=== PATIENT | female | born 1930 | race Caucasian/White ===

== ENCOUNTER 2016-08-19 15:21 | Inpatient (IN) | payer MEDICARE, BC ==
[2016-08-19] MEDS ORDERED: KETOROLAC 30 MG/ML 1 ML VIAL IVP STA (16:12)
[2016-08-19] MEDS ORDERED: LORazepam 2 MG/ML SYRINGE IV STA (16:12)
[2016-08-19] MEDS ORDERED: ASPIRIN 325 MG TAB PO STA (16:12)
[2016-08-19] MEDS ORDERED: SODIUM CHLORIDE 0.9% 1,000 ML IV ONE ×2 (16:12→18:33)
[2016-08-19 17:09] LABS: Calcium 9.9 mg/dL (8.4-10.2); Potassium 6.1 mmol/L (3.5-5.1); Total Bilirubin 0.4 mg/dL (0.2-1.3); Total Protein 7.5 g/dL (6.3-8.2)
--- NOTE | 2016-08-19 17:22 | CT ---
EXAMINATION TYPE: CT abdomen pelvis wo con DATE OF EXAM: 08/19/2016 5:14 PM COMPARISON: NONE HISTORY: PTs family states of vomiting and abdominal pain today. CT DLP: 1180.4 mGycm Automated exposure control for dose reduction was used. TECHNIQUE: Helical acquisition of images was performed from the lung bases through the pelvis. FINDINGS: There is mild linear density at the lung bases consistent with subsegmental atelectasis. There is no pleural effusion. Heart size is normal. Liver and spleen appear normal. Bile ducts are not dilated. T here is a small hiatal hernia. There is no sign of a pancreatic mass. There is no adrenal mass. Kidne ys have normal size and contour. There is no hydronephrosis. There is a 3 cm cyst on the lower pole r ight kidney. There is no retroperitoneal adenopathy. Abdominal aorta is atheromatous. There is mild t hickening of the second and third part of the duodenum. There are numerous diverticula in the sigmoid colon. There is no sign of diverticulitis. There is no free air. Appendix appears normal. Bladder distends smoothly. There is an air bubble in the urinary b ladder that could relate to catheterization. IMPRESSION: SMALL HIATAL HERNIA. MILD ATELECTASIS AT THE LUNG BASES. THERE IS MILD THICKENING OF THE WALL OF THE DUODENUM THAT COULD RELATE TO DUODENITIS AND GASTRITIS THAT APPEARS NEW COMPARED TO LAST EXAM. COLONIC DIVERTICULOSIS WITHOUT SIGN OF DIVERTICULITIS.
--- NOTE | 2016-08-19 17:24 | XR ---
EXAMINATION TYPE: XR chest 2V DATE OF EXAM: 08/19/2016 5:19 PM COMPARISON: 06/23/2016 HISTORY: Abdominal pain TECHNIQUE: Frontal and lateral views of the chest are obtained. FINDINGS: There is no heart failure nor confluent pneumonic infiltrate. There are no hilar masses. T horacic aorta is atherosclerotic and tortuous. There is osteopenia with anterior wedging of a few tho racic vertebra. IMPRESSION: No heart failure. Atherosclerotic vascular disease. There is clearing of the mild pulmon gopal congestion compared to last exam. Osteoporosis with multiple thoracic mild compression fractures. Old left humeral neck fracture.
[2016-08-19 18:04] LABS: Basophils % (A) 0 %; CH 23.8; CHCM 30.3; Eosinophils % (A) 0 %; HCT 28.8 % (34.0-46.0); HDW 2.79; Hypochromasia Marked; Luc # (Auto) 0.25; Luc % (Auto) 2; Lymphocytes # (A) 2.2 k/uL (1.0-4.8); Lymphocytes % (A) 17 %; MCH 23.9 pg (25.0-35.0); MCHC 30.4 g/dL (31.0-37.0); MCV 78.7 fL (80.0-100.0); Mean Platelet Volume 7.5; Monocytes # (A) 0.5 k/uL (0-1.0); Monocytes % (A) 4 %; Neutrophils % (A) 77 %; RBC 3.67 m/uL (3.80-5.40); RDW 14.7 % (11.5-15.5); WBC 13.1 k/uL (3.8-10.6); WBC (Perox) 13.61
[2016-08-19 18:11] LABS: HGB 8.8 gm/dL (11.4-16.0)
[2016-08-19 18:16] LABS: Appearance,Urine Clear (Clear); Bilirubin,Urine Negative (Negative); Glucose,Urine (UA) Negative (Negative); Ketones,Urine Negative (Negative); Leukocyte Esterase,Urine Negative (Negative); Mucus,Urine Rare /hpf; Nitrite,Urine Negative (Negative); Particle Count 1352; Protein,Urine 1+ (Negative); Specific Gravity,Urine 1.009 (1.001-1.035); Squamous Epithelial Cell,Urine 1 /hpf (0-4); UA Billing (MACRO vs. MICRO) MICRO; Urobilinogen,Urine <2.0 mg/dL (<2.0)
[2016-08-19] MEDS ORDERED: PANTOPRAZOLE 40 MG/10 ML VIAL IVP ONE (18:33)
[2016-08-19] MEDS ORDERED: LEVOFLOXACIN 500MG-D5W PMX 500 MG in DEXTROSE/WATER 1 100ML.BAG IVPB STA (18:40)
[2016-08-19] MEDS ORDERED: metroNIDAZOLE-NS PMX 500 MG in SALINE 1 100ML.BAG IVPB STA (18:40)
[2016-08-19] MEDS ORDERED: ACETAMINOPHEN TAB 325 MG TAB PO PRN (20:00)
[2016-08-19] MEDS ORDERED: LORazepam 2 MG/ML SYRINGE IV PRN (20:00)
[2016-08-19] MEDS ORDERED: NALOXONE 0.4 MG/ML 1 ML VIAL IV PRN (20:00)
[2016-08-19] MEDS ORDERED: KETOROLAC 30 MG/ML 1 ML VIAL IVP PRN (20:00)
[2016-08-19] MEDS ORDERED: HYDROcodone/APAP 5-325MG 1 EACH TAB PO PRN (20:04)
[2016-08-19] MEDS ORDERED: SODIUM POLYSTYRENE SULFONATE 15 GM/60 ML BOTTLE PO ONE (20:05)
[2016-08-19] MEDS ORDERED: SPIRONOLACTONE 25 MG TAB PO SCH (20:15)
[2016-08-19] MEDS: QUEtiapine 25 MG TAB PO SCH (23:11)
[2016-08-19] MEDS: traZODone HCL 50 MG TAB PO SCH (23:12)
--- NOTE | 2016-08-20 01:54 | ED ---
General Adult HPI - General Chief complaint: Abdominal Pain Stated complaint: Abd Pain Time Seen by Provider: 08/19/16 15:40 Source: family Mode of arrival: wheelchair Limitations: no limitations - History of Present Illness Initial comments: 85-year-old female presenting with family for evaluation of abdominal pain that is been present since early this afternoon. They state that the pain has associated nausea and vomiting of which she has had 2 episodes. The patient has a significant past medical history of dementia and is a very poor historian. Family states that the abdominal pain is generalized and she is not able to indicate if there is a focal spot worse than the rest. Palpation seems to make her symptoms worse they state there are no identifiable alleviating factors . Although she was recently treated for urinary tract infection she denies any dysuria. She further denies any constipation/diarrhea, shortness of breath, chest pain, fevers, chills. She has taken nothing to improve her pain. - Related Data Home Medications Medication Instructions Recorded Confirmed ALPRAZolam [Xanax] 0.5 mg PO HS 07/04/15 08/19/16 Citalopram Hydrobromide [CeleXA] 20 mg PO DAILY 11/04/15 08/19/16 ALPRAZolam [Xanax] 0.25 mg PO DAILY 06/22/16 08/19/16 HYDROcodone/APAP 5-325MG [[place] 1 tab PO TID PRN 06/22/16 08/19/16 5-325] Lisinopril 40 mg PO DAILY 06/22/16 08/19/16 Carvedilol [Coreg] 3.125 mg PO DAILY 07/13/16 08/19/16 Diclofenac Potassium [Cataflam] 50 mg PO BID 07/13/16 08/19/16 Lactulose 10 gm PO DAILY 07/13/16 08/19/16 Cholecalciferol [Vitamin D3] 2,000 unit PO DAILY 08/19/16 08/19/16 Spironolactone [Aldactone] 25 mg PO DIRECTED 08/19/16 08/19/16 amLODIPine [Norvasc] 2.5 mg PO DAILY 08/19/16 08/19/16 traZODone HCL 50 mg PO HS 08/19/16 08/19/16 Previous Rx's Medication Instructions Recorded QUEtiapine [SEROquel] 25 mg PO HS #0 04/22/16 Melatonin 3 mg PO HS #1 tablet 06/24/16 Allergies Allergy/AdvReac Type Severity Reaction Status Date / Time erythromycin base Allergy Rash/Hives Verified 08/19/16 16:03 hydrochlorothiazide Allergy Rapid Verified 08/19/16 16:03 Heart Rate ibandronate sodium Allergy Dyspnea Verified 08/19/16 16:03 [From [place]] Penicillins Allergy Rash/Hives Verified 08/19/16 16:03 Review of Systems ROS Statement: Those systems with pertinent positive or pertinent negative responses have been documented in the HPI. General: Patient denies fever, chills, positive nausea and vomiting. HEENT: No visual changes. No eye pain. No nasal symptoms. No dysphagia.No odynophagia. No ENT pain. Cardiac: No chest pain. No palpitations. Pulmonary; No dyspnea. No cough. GI: Positive generalized abdominal pain. No diarrhea. No constipation. No bowel habit changes. No melena. No hematochezia. : No dysuria.No hematuria. No hesitancy. No urgency. No renal lithiasis history. Musculoskeletal: No musculoskeletal pain. Orthopedic: Denies fracture history. Integumentary: Denies rash. Denies pruritis. Neurologic: Denies any lateralizing weakness. Denies numbness. Denies tingling. No seizure activity. Denies TIA or CVA. Heme/Onc: Denies anemia. Denies cancer. Denies adenopathy. ROS Other: All systems not noted in ROS Statement are negative. Past Medical History Past Medical History: Coronary Artery Disease (CAD), Dementia, Hypertension, Osteoarthritis (OA) Additional Past Medical History / Comment(s): constipation, STRESS TEST 11-04-15 ,ARTHRITIS IN HANDS, GAIT PROBLEMS/HAS HAD FALLS WHERE SHE HAS FX C1, RT SHOULDER, NOSE(NO SX DONE ON ANY OF THEM), UNABLE TO OBTAIN ANSWERS FROM PT FOR DEPRESSION RISK SCREEN BUT FAMILY STATED SHE MAY HAVE SOME MILD /D/T HER DEMENTIA. History of Any Multi-Drug Resistant Organisms: None Reported Past Surgical History: Orthopedic Surgery Additional Past Surgical History / Comment(s): rt knee Past Anesthesia/Blood Transfusion Reactions: No Reported Reaction Past Psychological History: Anxiety Smoking Status: Never smoker Past Alcohol Use History: None Reported Past Drug Use History: None Reported - Past Family History Mother Family Medical History: Congestive Heart Failure (CHF), Myocardial Infarction ( [place]) Father Family Medical History: Cancer General Exam - General Exam Comments Initial Comments: General: The patient is awake and alert, in no distress, and does not appear acutely ill. Eye: Pupils are equal, round and reactive to light, extra-ocular movements are intact; there is normal conjunctiva bilaterally. No signs of icterus. Ears, nose, mouth and throat: There are moist mucous membranes and no oral lesions. Neck: The neck is supple, there is no tenderness or JVD. Cardiovascular: There is a regular rate and rhythm. No murmur, rub or gallop is appreciated. Respiratory: Lungs are clear to auscultation, respirations are non-labored, breath sounds are equal. No wheezes, stridor, rales, or rhonchi. Gastrointestinal: Soft, non-distended, mildly tender abdomen to palpation without masses or organomegaly noted. There is no rebound or guarding present. No CVA tenderness. Bowel sounds are unremarkable. Back: There is no tenderness to palpation in the midline. There is no obvious deformity. No rashes noted. Musculoskeletal: Normal ROM, no tenderness, There is no pedal edema. There is no calf tenderness or swelling. Sensation intact. Pulses equal bilaterally 2+. Neurological: CN II-XII intact, There are no obvious motor or sensory deficits. Coordination appears grossly intact. Speech is normal. Skin: Skin is warm and dry and no rashes or lesions are noted. Psychiatric: Cooperative, appropriate mood & affect, normal judgment. Poor historian to her current HPI. Limitations: no limitations Course Vital Signs 08/19/16 08/19/16 08/19/16 15:33 18:37 19:31 Temperature 98.7 F 99.1 F Pulse Rate 83 83 79 Respiratory 16 16 18 Rate Blood Pressure 165/82 144/85 146/78 O2 Sat by Pulse 98 98 95 Oximetry 08/19/16 21:45 Temperature 97.0 F L Pulse Rate 78 Respiratory 18 Rate Blood Pressure 142/78 O2 Sat by Pulse 96 Oximetry EKG Findings - EKG Comments: EKG Findings:: EKG shows sinus rhythm with PACs and a left bundle branch block unchanged from previous EKGs. Medical Decision Making - Medical Decision Making 85-year-old female presenting for evaluation of generalized abdominal pain that started early this afternoon with associated nausea and vomiting 2. She was recently treated for urinary tract infection and denies current dysuria. On physical examination she has a soft non-peritoneal abdomen without guarding but it is tender to palpation. Otherwise there are no other significant abnormalities on physical exam. Due to the patient being a poor historian and having significant dementia we'll obtain CT abdomen as well as labs, urinalysis, and provide pain control. The patient has benzos for agitation at home and we'll provide her with a small dose here in the ED. Labs revealed a mild leukocytosis but a 2 g drop in her hemoglobin from previous visits. Labs further showed kidney function elevated but consistent with previous values. There is also hyperkalemia which will be treated with Kayexalate. CT abdomen and pelvis showed inflammatory changes around the duodenum and gastric fundus and given a 2 g drop in her hemoglobin may indicate a GI bleed. Patient continued on IV fluids, type and screen obtained, and Protonix loading dose provided. Discussion with family concerning the results and they agreed with plan to admit the patient.Dr. Chiu accepted the admission with request for consult with GI. Admission order placed and bed request submitted. - Lab Data Result diagrams: 08/19/16 16:30 08/19/16 16:38 Lab Results 08/19/16 08/19/16 08/19/16 Range/Units 16:30 16:38 16:38 WBC 13.1 H (3.8-10.6) k/uL RBC 3.67 L (3.80-5.40) m/uL Hgb 8.8 L D (11.4-16.0) gm/dL Hct 28.8 L (34.0-46.0) % MCV 78.7 L (80.0-100.0) fL MCH 23.9 L (25.0-35.0) pg MCHC 30.4 L (31.0-37.0) g/dL RDW 14.7 (11.5-15.5) % Plt Count 670 H (150-450) k/uL Neutrophils % 77 % Lymphocytes % 17 % Monocytes % 4 % Eosinophils % 0 % Basophils % 0 % Neutrophils # 10.0 H (1.3-7.7) k/uL Lymphocytes # 2.2 (1.0-4.8) k/uL Monocytes # 0.5 (0-1.0) k/uL Eosinophils # 0.0 (0-0.7) k/uL Basophils # 0.0 (0-0.2) k/uL Hypochromasia Marked Sodium 137 (137-145) mmol/L Potassium 6.1 H (3.5-5.1) mmol/L Chloride 100 (98-107) mmol/L Carbon Dioxide 24 (22-30) mmol/L Anion Gap 13 mmol/L BUN 25 H (7-17) mg/dL Creatinine 1.53 H (0.52-1.04) mg/dL Est GFR (MDRD) Af Amer 39 (>60 ml/min/1.73 sqM) Est GFR (MDRD) Non-Af 32 (>60 ml/min/1.73 sqM) Glucose 102 H (74-99) mg/dL Plasma Lactic Acid Lico (0.7-2.0) mmol/L Calcium 9.9 (8.4-10.2) mg/dL Total Bilirubin 0.4 (0.2-1.3) mg/dL AST 19 (14-36) U/L ALT 35 (9-52) U/L Alkaline Phosphatase 136 H (38-126) U/L Troponin I <0.012 (0.000-0.034) ng/mL Total Protein 7.5 (6.3-8.2) g/dL Albumin 3.7 (3.5-5.0) g/dL Lipase 287 (23-300) U/L Urine Color Urine Appearance (Clear) Urine pH (5.0-8.0) Ur Specific [place] (1.001-1.035) Urine Protein (Negative) Urine Glucose (UA) (Negative) Urine Ketones (Negative) Urine Blood (Negative) Urine Nitrate (Negative) Urine Bilirubin (Negative) Urine Urobilinogen (<2.0) mg/dL Ur Leukocyte Esterase (Negative) Ur Squamous Epith Cells (0-4) /hpf Urine Mucus (None) /hpf Stool Occult Blood (Negative) Blood Type Blood Type Recheck Antibody Screen Spec Expiration Date 08/19/16 08/19/16 08/19/16 Range/Units 16:38 17:40 18:50 WBC (3.8-10.6) k/uL RBC (3.80-5.40) m/uL Hgb (11.4-16.0) gm/dL Hct (34.0-46.0) % MCV (80.0-100.0) fL MCH (25.0-35.0) pg MCHC (31.0-37.0) g/dL RDW (11.5-15.5) % Plt Count (150-450) k/uL Neutrophils % % Lymphocytes % % Monocytes % % Eosinophils % % Basophils % % Neutrophils # (1.3-7.7) k/uL Lymphocytes # (1.0-4.8) k/uL Monocytes # (0-1.0) k/uL Eosinophils # (0-0.7) k/uL Basophils # (0-0.2) k/uL Hypochromasia Sodium (137-145) mmol/L Potassium (3.5-5.1) mmol/L Chloride (98-107) mmol/L Carbon Dioxide (22-30) mmol/L Anion Gap mmol/L BUN (7-17) mg/dL Creatinine (0.52-1.04) mg/dL Est GFR (MDRD) Af Amer (>60 ml/min/1.73 sqM) Est GFR (MDRD) Non-Af (>60 ml/min/1.73 sqM) Glucose (74-99) mg/dL Plasma Lactic Acid Lico (0.7-2.0) mmol/L Calcium (8.4-10.2) mg/dL Total Bilirubin (0.2-1.3) mg/dL AST (14-36) U/L ALT (9-52) U/L Alkaline Phosphatase (38-126) U/L Troponin I (0.000-0.034) ng/mL Total Protein (6.3-8.2) g/dL Albumin (3.5-5.0) g/dL Lipase (23-300) U/L Urine Color Light Yellow Urine Appearance Clear (Clear) Urine pH 8.0 (5.0-8.0) Ur Specific [place] 1.009 (1.001-1.035) Urine Protein 1+ H (Negative) Urine Glucose (UA) Negative (Negative) Urine Ketones Negative (Negative) Urine Blood Negative (Negative) Urine Nitrate Negative (Negative) Urine Bilirubin Negative (Negative) Urine Urobilinogen <2.0 (<2.0) mg/dL Ur Leukocyte Esterase Negative (Negative) Ur Squamous Epith Cells 1 (0-4) /hpf Urine Mucus Rare H (None) /hpf Stool Occult Blood Negative (Negative) Blood Type O Positive Blood Type Recheck No Antibody Screen NEGATIVE Spec Expiration Date 08/22/2016233708/19/16 Range/Units 19:07 WBC (3.8-10.6) k/uL RBC (3.80-5.40) m/uL Hgb (11.4-16.0) gm/dL Hct (34.0-46.0) % MCV (80.0-100.0) fL MCH (25.0-35.0) pg MCHC (31.0-37.0) g/dL RDW (11.5-15.5) % Plt Count (150-450) k/uL Neutrophils % % Lymphocytes % % Monocytes % % Eosinophils % % Basophils % % Neutrophils # (1.3-7.7) k/uL Lymphocytes # (1.0-4.8) k/uL Monocytes # (0-1.0) k/uL Eosinophils # (0-0.7) k/uL Basophils # (0-0.2) k/uL Hypochromasia Sodium (137-145) mmol/L Potassium (3.5-5.1) mmol/L Chloride (98-107) mmol/L Carbon Dioxide (22-30) mmol/L Anion Gap mmol/L BUN (7-17) mg/dL Creatinine (0.52-1.04) mg/dL Est GFR (MDRD) Af Amer (>60 ml/min/1.73 sqM) Est GFR (MDRD) Non-Af (>60 ml/min/1.73 sqM) Glucose (74-99) mg/dL Plasma Lactic Acid Lico 0.5 L (0.7-2.0) mmol/L Calcium (8.4-10.2) mg/dL Total Bilirubin (0.2-1.3) mg/dL AST (14-36) U/L ALT (9-52) U/L Alkaline Phosphatase (38-126) U/L Troponin I (0.000-0.034) ng/mL Total Protein (6.3-8.2) g/dL Albumin (3.5-5.0) g/dL Lipase (23-300) U/L Urine Color Urine Appearance (Clear) Urine pH (5.0-8.0) Ur Specific [place] (1.001-1.035) Urine Protein (Negative) Urine Glucose (UA) (Negative) Urine Ketones (Negative) Urine Blood (Negative) Urine Nitrate (Negative) Urine Bilirubin (Negative) Urine Urobilinogen (<2.0) mg/dL Ur Leukocyte Esterase (Negative) Ur Squamous Epith Cells (0-4) /hpf Urine Mucus (None) /hpf Stool Occult Blood (Negative) Blood Type Blood Type Recheck Antibody Screen Spec Expiration Date Disposition Clinical Impression: Anemia, Abdominal pain, Hyperkalemia Disposition: ADMITTED IP TO [facility] Decision to Admit Reason: Admit from EC Decision Date: 08/20/16 Decision Time: 01:57
[2016-08-20] MEDS: SODIUM CHLORIDE 0.9% 1,000 ML IV SCH ×3 (05:16→22:06)
[2016-08-20 07:19] LABS: Basophils % (A) 0 %; CH 23.7; CHCM 29.7; Eosinophils # (A) 0.1 k/uL (0-0.7); Eosinophils % (A) 1 %; HCT 27.9 % (34.0-46.0); HDW 2.74; HGB 8.4 gm/dL (11.4-16.0); Hypochromasia Marked; Luc # (Auto) 0.26; Luc % (Auto) 2; Lymphocytes # (A) 2.3 k/uL (1.0-4.8); Lymphocytes % (A) 20 %; Monocytes # (A) 0.6 k/uL (0-1.0); Monocytes % (A) 5 %; Neutrophils # (A) 8.1 k/uL (1.3-7.7); Neutrophils % (A) 71 %; RBC 3.49 m/uL (3.80-5.40); RDW 14.7 % (11.5-15.5); WBC 11.3 k/uL (3.8-10.6); WBC (Perox) 11.97
[2016-08-20 08:06] LABS: Calcium 9.6 mg/dL (8.4-10.2); Magnesium 1.6 mg/dL (1.6-2.3); Phosphorous 3.8 mg/dL (2.5-4.5); Potassium 5.6 mmol/L (3.5-5.1); Total Bilirubin 0.6 mg/dL (0.2-1.3)
[2016-08-20] MEDS ORDERED: SPIRONOLACTONE 25 MG TAB PO SCH (09:00)
[2016-08-20] MEDS: ONDANSETRON 4 MG/2 ML VIAL IVP PRN (10:14)
[2016-08-20] MEDS: amLODIPine 5 MG TAB PO SCH (14:09)
[2016-08-20] MEDS: CITALOPRAM HYDROBROMIDE 20 MG TAB PO SCH (14:09)
[2016-08-20] MEDS: LISINOPRIL 20 MG TAB PO SCH (14:09)
[2016-08-20] MEDS: CARVEDILOL 3.125 MG TAB PO SCH (14:09)
[2016-08-20] MEDS: LACTULOSE 20 GM/30 ML CUP PO SCH (14:32)
--- NOTE | 2016-08-20 16:02 | HP ---
DATE OF ADMISSION: Chief complaint is abdominal pain. HISTORY OF PRESENT ILLNESS: Ms. Saleh is an 85-year-old female with known history of dementia, hypertension, and history of recent falls with C1 fracture as well as shoulder fracture. Was brought to the hospital with complaints of abdominal pain that has been present since yesterday. Pain is associated with nausea and vomiting which she had 2 episodes. Abdominal pain is generalized and patient also had history of constipation, most likely secondary to narcotic pain medications, which she has been taking for left shoulder pain. Otherwise, patient denied any complaints of chest pain. No short of breath. No fever. No chills. No recent illnesses or sick contacts at home. No recent travel. Patient had a CT of the abdomen and pelvis done, showed a small hiatal hernia and mild atelectasis in the lung bases along with mild thickening of the wall of the duodenum related to duodenitis and gastritis. Patient also having colonic diverticulosis without signs of diverticulitis. Patient has also found to have hemoglobin of 8.8 and hyperkalemia with potassium low at 6.1 and dehydration with elevated BUN and creatinine level. The patient has been taking spironolactone for hypertension. Currently, patient is not tolerating p.o. medications and p.o. diet. Feeling nauseated, otherwise. REVIEW OF SYSTEMS: CONSTITUTIONAL: No fever. No chills. No weakness or malaise. RESPIRATORY: No cough or sputum production. CARDIOVASCULAR: No chest pain or short of breath. No leg swelling. ABDOMEN: Patient does have nausea, vomiting, abdominal pain and constipation. No diarrhea. GENITOURINARY: No dysuria, hematuria. ENDOCRINE: Negative. PSYCHIATRIC: Negative. SKIN: Negative. MUSCULOSKELETAL: Negative. All other 14-point review of systems negative except as above. Past medical history includes dementia, hypertension, osteoarthritis, chronic constipation, status post fall and a C1 and right shoulder fracture, not a surgical candidate. PAST SURGICAL HISTORY: Orthopedic surgery, right knee surgery. PSYCHOSOCIAL HISTORY: Anxiety. SOCIAL HISTORY: Patient never a smoker. No alcohol. Denied any drugs or IVDU. FAMILY HISTORY: Mother had CHF and [place]. Father had cancer. Allergies include ERYTHROMYCIN BASE, HYDROCHLOROTHIAZIDE, IBANDRONATE and PENICILLINS. HOME MEDICATIONS: 1. Xanax. 2. Celexa. 3. [place]. 4. Lisinopril. 5. Coreg. 6. Diclofenac. 7. Lactulose. 8. Vitamin D3. 9. Spironolactone. 10. Aldactone. 11. Norvasc. 12. Trazodone. 13. Seroquel. 14. Melatonin. PHYSICAL EXAMINATION: An 85-year-old female, lying in bed. Awake, alert, oriented x1 to 2. Patient does have underlying dementia. VITALS: Blood pressure is 170/95, pulse is 98, respiratory rate is 16, temperature afebrile, pulse ox 97% on room air. HEENT: Atraumatic, normocephalic. Neck is supple. No JVD. CVS EXAM: S1, S2 heard. No murmurs, no gallop. LUNGS: Bilateral air entry is present. No wheezing. ABDOMEN: Soft, nontender. Bowel sounds are present, sluggish. WREATH MACHINE TENDER: Awake, alert, oriented x1 to 2. Patient has dementia, able to move all extremities. EXTREMITIES: No edema. Pulses palpable bilaterally, no clubbing or cyanosis. PSYCHIATRIC: Cooperative. LABORATORY DATA: WBC 13.1, hemoglobin 8.8, platelets 670. Sodium 139, potassium 6.1, BUN 25, creatinine 1.51, alk phos 136, ( ) negative. UA is negative. CT of the abdomen and pelvis showed a small hiatal hernia and duodenitis and gastritis and diverticulosis, no diverticulitis. Chest x-ray, no heart failure or intravascular disease. There is clearing of mild pulmonary congestion compared to the last exam. Osteoporosis with multiple thoracic mild compression fractures, old left humeral neck fracture. EKG showed sinus rhythm and left bundle branch block. IMPRESSION: 1. Nausea, vomiting, abdominal pain, secondary to duodenitis and gastritis. No evidence of diverticulitis as per CT of the abdomen and pelvis. 2. NSAID use in the form of diclofenac sodium at home. 3. Chronic constipation. 4. Recent fall with C1 neck fracture and left humeral neck fracture. Conservative management as per Ortho. 5. Hypertension. 6. Degenerative joint disease. 7. Depression. 8. Hyperkalemia with potassium of 6.1. 9. Microcytic anemia with possibly acute blood loss anemia. 10. Acute kidney injury, most likely prerenal. DISCUSSION AND PLAN: Patient admitted to the hospital with nausea, vomiting, abdominal pain, mostly likely secondary to duodenitis and gastritis. Will continue the PPI IV b.i.d. and continue to monitor H&H and will hold NSAIDS at this time and will limit narcotic pain medications. Continue the stool softeners, continue the IV fluids and will hold spironolactone due to hyperkalemia and follow up renal function. Antibiotics will be discontinued. GI has been consulted. Further recommendations based on the clinical course. MTDD
[2016-08-20] MEDS: traZODone HCL 50 MG TAB PO SCH (22:03)
[2016-08-20] MEDS: PANTOPRAZOLE 40 MG/10 ML VIAL IVP SCH (22:04)
[2016-08-20] MEDS: DOCUSATE 100 MG CAP PO SCH (22:04)
[2016-08-20] MEDS: QUEtiapine 25 MG TAB PO SCH (22:04)
--- NOTE | 2016-08-21 02:38 | P.CONS ---
History of Present Illness - Reason for Consult Consult date: 08/20/16 - History of Present Illness 85-year old female with history of dementia who is taking NSAIDs was admitted for abdominal pain, nausea and vomiting. CT showed uncomplicated diverticulosis and gastritis and duodenitis. The patient has been started on PPI Review of Systems Constitutional: Denied fever, chills or unintentional weight loss Neurologic: No headahes, double vision or sensory or motor changes Cardiopulmonary: No chest pains, SOB or palpitations Gastrointestinal: See PI above Genitourinary: No hematuria, dysuria or frequency Endocrine: No polyphagia or polydypsia Hematology: No bleeding tendency or bruising Skin: No rashes Psychiatric: No anxiety or depression Past Medical History Past Medical History: Coronary Artery Disease (CAD), Dementia, Hypertension, Osteoarthritis (OA) Additional Past Medical History / Comment(s): constipation, STRESS TEST 11-04-15 ,ARTHRITIS IN HANDS, GAIT PROBLEMS/HAS HAD FALLS WHERE SHE HAS FX C1, RT SHOULDER, NOSE(NO SX DONE ON ANY OF THEM), UNABLE TO OBTAIN ANSWERS FROM PT FOR DEPRESSION RISK SCREEN BUT FAMILY STATED SHE MAY HAVE SOME MILD /D/T HER DEMENTIA. History of Any Multi-Drug Resistant Organisms: None Reported Past Surgical History: Orthopedic Surgery Additional Past Surgical History / Comment(s): rt knee Past Anesthesia/Blood Transfusion Reactions: No Reported Reaction Past Psychological History: Anxiety Smoking Status: Never smoker Past Alcohol Use History: None Reported Past Drug Use History: None Reported - Past Family History Mother Family Medical History: Congestive Heart Failure (CHF), Myocardial Infarction ( [place]) Father Family Medical History: Cancer Medications and Allergies Home Medications Medication Instructions Recorded Confirmed Type Citalopram Hydrobromide [CeleXA] 20 mg PO DAILY 11/04/15 08/27/16 History HYDROcodone/APAP 5-325MG [[place] 1 tab PO TID PRN 06/22/16 08/27/16 History 5-325] Lisinopril 40 mg PO DAILY 06/22/16 08/27/16 History Carvedilol [Coreg] 3.125 mg PO DAILY 07/13/16 08/27/16 History amLODIPine [Norvasc] 2.5 mg PO DAILY 08/19/16 08/27/16 History ALPRAZolam [Xanax] 0.25 mg PO DAILY 08/27/16 08/27/16 History Allergies Allergy/AdvReac Type Severity Reaction Status Date / Time erythromycin base Allergy Rash/Hives Verified 08/19/16 16:03 hydrochlorothiazide Allergy Rapid Verified 08/19/16 16:03 Heart Rate ibandronate sodium Allergy Dyspnea Verified 08/19/16 16:03 [From [facility]] Penicillins Allergy Rash/Hives Verified 08/19/16 16:03 Physical Exam Vitals: Vital Signs Temp Pulse Resp BP Pulse Ox 08/20/16 23:00 97.5 F L 97 20 148/79 96 08/20/16 16:00 81 16 08/20/16 15:00 98.5 F 81 16 114/91 92 L 08/20/16 08:00 81 16 08/20/16 07:00 98.0 F 81 158/79 96 Intake and Output 08/20/16 08/20/16 08/21/16 14:59 22:59 06:59 Output Total 100 Balance -100 Output: Emesis 100 Other: Voiding Method Diaper Diaper # Voids 4 2 # Bowel Movements 1 Weight 68.039 kg Patient Weight 08/21/16 06:59 Weight 68.039 kg General appearance: The patient is alert, oriented, in no acute distress. HET: Head is normocephalic and atraumatic. Pupils are equal and reactive. Oropharynx is clear without lesions. Neck: Supple without lymphadenopathy. Trachea midline. Heart: S1 S2. Regular rate and rhythm. Lungs: No crackles or wheezes are heard. Abdomen: Soft, diffuse upper epigastric pain, nondistended with bowel sounds. No peritoneal signs. No palpable organomegaly or masses. Extremities: Normal skin color and turgor. No cyanosis, rash, ulceration, clubbing, or edema. Radial and pedal pulses are 2/4 bilaterally. Neurological: No focal deficits. Strength and sensation are grossly intact. Results CBC & Chem 7: 08/25/16 08:07 08/25/16 08:07 Labs: Abnormal Lab Results - Last 24 Hours (Table) 08/20/16 08/20/16 Range/Units 06:49 06:49 WBC 11.3 H (3.8-10.6) k/uL RBC 3.49 L (3.80-5.40) m/uL Hgb 8.4 L (11.4-16.0) gm/dL Hct 27.9 L (34.0-46.0) % MCH 24.0 L (25.0-35.0) pg MCHC 30.0 L (31.0-37.0) g/dL Plt Count 592 H (150-450) k/uL Neutrophils # 8.1 H (1.3-7.7) k/uL Potassium 5.6 H (3.5-5.1) mmol/L Carbon Dioxide 21 L (22-30) mmol/L BUN 21 H (7-17) mg/dL Creatinine 1.46 H (0.52-1.04) mg/dL Albumin 3.4 L (3.5-5.0) g/dL Assessment and Plan Plan: Abdominal symptoms and abnormal CT consistent with gastritis/duodenitis. NSAIDs are on hold and patient has been started on PPI. Will follow with you closely and consider EGD based on her course.
[2016-08-21] MEDS: SODIUM CHLORIDE 0.9% 1,000 ML IV SCH ×3 (04:00→23:25)
[2016-08-21 07:03] LABS: Basophils % (A) 0 %; CHCM 29.7; Eosinophils # (A) 0.1 k/uL (0-0.7); Eosinophils % (A) 1 %; HCT 28.3 % (34.0-46.0); HGB 8.3 gm/dL (11.4-16.0); Hypochromasia Marked; Luc # (Auto) 0.11; Luc % (Auto) 1; Lymphocytes % (A) 21 %; MCH 23.7 pg (25.0-35.0); MCHC 29.4 g/dL (31.0-37.0); MCV 80.8 fL (80.0-100.0); Mean Platelet Volume 7.7; Monocytes # (A) 0.5 k/uL (0-1.0); Monocytes % (A) 5 %; Neutrophils % (A) 72 %; RDW 15.3 % (11.5-15.5); WBC 9.7 k/uL (3.8-10.6); WBC (Perox) 10.47
[2016-08-21 07:22] LABS: Calcium 9.5 mg/dL (8.4-10.2); Potassium 5.3 mmol/L (3.5-5.1)
[2016-08-21] MEDS: amLODIPine 5 MG TAB PO SCH (08:26)
[2016-08-21] MEDS: LISINOPRIL 20 MG TAB PO SCH (08:26)
[2016-08-21] MEDS: CARVEDILOL 3.125 MG TAB PO SCH (08:26)
[2016-08-21] MEDS: CITALOPRAM HYDROBROMIDE 20 MG TAB PO SCH (08:26)
[2016-08-21] MEDS: DOCUSATE 100 MG CAP PO SCH (08:28)
[2016-08-21] MEDS: LACTULOSE 20 GM/30 ML CUP PO SCH (08:28)
[2016-08-21] MEDS: PANTOPRAZOLE 40 MG/10 ML VIAL IVP SCH ×2 (08:56→21:03)
[2016-08-21 10:38] LABS: % Iron Saturation 20.1 % (20-50)
[2016-08-21] MEDS: DOCUSATE ORAL SOLN 100 MG/10 ML CUP PO SCH ×2 (13:34→21:02)
[2016-08-21] MEDS: QUEtiapine 25 MG TAB PO SCH (21:03)
[2016-08-21] MEDS: traZODone HCL 50 MG TAB PO SCH (21:03)
[2016-08-22] MEDS: SODIUM CHLORIDE 0.9% 1,000 ML IV SCH ×3 (06:17→21:14)
[2016-08-22 08:35] LABS: Basophils # (A) 0.1 k/uL (0-0.2); Basophils % (A) 1 %; CH 23.6; CHCM 29.7; Eosinophils # (A) 0.2 k/uL (0-0.7); Eosinophils % (A) 1 %; HCT 23.7 % (34.0-46.0); HDW 2.89; HGB 7.3 gm/dL (11.4-16.0); Hypochromasia Marked; Luc # (Auto) 0.32; Luc % (Auto) 2; Lymphocytes # (A) 4.2 k/uL (1.0-4.8); Lymphocytes % (A) 29 %; MCH 24.4 pg (25.0-35.0); MCHC 30.6 g/dL (31.0-37.0); MCV 79.8 fL (80.0-100.0); Mean Platelet Volume 6.7; Monocytes # (A) 0.8 k/uL (0-1.0); Monocytes % (A) 6 %; Neutrophils # (A) 8.8 k/uL (1.3-7.7); Neutrophils % (A) 61 %; RBC 2.98 m/uL (3.80-5.40); WBC 14.3 k/uL (3.8-10.6); WBC (Perox) 13.96
[2016-08-22 08:36] LABS: Calcium 9.2 mg/dL (8.4-10.2)
[2016-08-22 08:37] LABS: INR 1.1 (<1.1); Prothrombin Time 11.3 sec (9.0-12.0)
[2016-08-22 08:43] LABS: Manual Review Performed
[2016-08-22 09:14] LABS: Glucose,Whole Blood 122 mg/dL (75-99)
--- NOTE | 2016-08-22 10:05 | PN ---
DATE OF SERVICE: 08/21/2016 INTERVAL HISTORY: Ms. Saleh is an 85 -year-old female with known history of dementia, hypertension and history of recent fall with C1 fracture as well as shoulder fracture was admitted to the hospital with abdominal pain and found to have esophagitis and duodenitis. ( ) have been stopped. The patient was started on PPI. The patient did improve clinically. Abdominal pain improved. Otherwise, patient tolerated diet not very well. Slowly tolerating now. Gastroenterology is following this patient. The patient was also hyperkalemic on admission and this is improving also. Otherwise, the patient is a poor historian. Denied any other problems now. Review of systems was negative except the above. CURRENT MEDICATIONS: Reviewed. PHYSICAL EXAMINATION: An 85 -year-old female, lying in the bed, awake, alert, oriented x 2 to 3, Appears in no apparent distress. VITALS: Blood pressure is 129/70. Pulse 89, respiratory rate 17, temperature afebrile, pulse ox 97% on room air. HEENT: atraumatic, normocephalic. Neck is supple. No JVD. CVS S1, S2 heard. No murmurs. No gallops. LUNGS: Bilateral air entry is present. No wheeze. No crackles. ABDOMEN: Soft, bowel sounds present. Nontender. CONTENT ARCHITECT: Awake, alert, oriented x 2 to 3, appears to be no apparent distress. No focal deficits. EXTREMITIES: No edema. Pulses palpable bilaterally. No clubbing or cyanosis. PSYCHIATRIC: Cooperative. LABORATORY DATA: WBC 9.7, hemoglobin 8.3, platelets 565, sodium 138, potassium 5.3, chloride 105, bicarb 21, BUN 16, creatinine 1.43. Amylase and lipase not elevated. UA negative. ( ) negative. IMPRESSION: 1. Nausea, vomiting, abdominal pain, secondary to duodenitis and gastritis. 2. No evidence of diverticulitis as per CT of the abdomen and antibiotics have been discontinued. 3. NSAID use in the form of diclofenac sodium at home. 4. Chronic constipation. Continue stool softeners and bowel regimen. 5. Recent fall with C1 neck fracture and left humerus fracture continuously and conservative management as ( ). 6. Hypertension. 7. Degenerative joint disease. 8. Depression. 9. Hyperkalemia with potassium of 6.1, improved to 7.3 today. 10. Microcytic anemia, possible acute blood loss anemia. Hemoglobin is stable. 11. Acute kidney injury most likely prerenal, improved now. DISCUSSION AND PLAN: The patient will be continued on PPI and continue IV fluids and encourage p.o. diet. Continue stool softeners and bowel regimen. Continue to hold spironolactone due to hyperkalemia and follow up renal function. Further recommendations based on clinical course. Anticipate discharge in the next 1 to 2 days.
[2016-08-22] MEDS: DOCUSATE ORAL SOLN 100 MG/10 ML CUP PO SCH ×2 (10:13→21:15)
[2016-08-22] MEDS: CARVEDILOL 3.125 MG TAB PO SCH (10:13)
[2016-08-22] MEDS: CITALOPRAM HYDROBROMIDE 20 MG TAB PO SCH (10:13)
[2016-08-22] MEDS: amLODIPine 5 MG TAB PO SCH (10:13)
[2016-08-22] MEDS: LACTULOSE 20 GM/30 ML CUP PO SCH (10:14)
[2016-08-22] MEDS ORDERED: SODIUM CHLORIDE 0.9% 500 ML IV ONE (10:16)
--- NOTE | 2016-08-22 10:30 | P.CNPUL ---
History of Present Illness Consult date: 08/22/16 Requesting physician: Luli Chiu Reason for consult: other (GI bleeding) Chief complaint: Abdominal pain History of present illness: This is an 85-year-old female with history of dementia, hypertension, degenerative joint disease, depression, patient was brought into the ER on 2016 with acute onset of abdominal pain that presented that same day. Pain was associated with nausea and vomiting, she had 2 episodes of nausea and vomiting, but no documentation of any hematemesis or melena at the time. Laboratory studies revealed mild leukocytosis, and there was a 2 g drop in her hemoglobin from previous visit. There was also evidence of hyperkalemia. CT of the abdomen and pelvis showed inflammatory changes around the duodenum and gastric fundus. Hence the patient was admitted with the impression of upper GI bleeding secondary to duodenitis/gastritis most likely related to the fact that the patient has been using nonsteroidal anti-inflammatory drugs. Her initial hemoglobin on 08/19/2016 was 8.8, this morning her hemoglobin was 7.3, and patient was noted to have low blood pressure, she was also noted to have maroon colored stools. Hence the patient was transferred to the ICU, and she is now receiving her first unit of packed RBCs she is scheduled to have 2 of them transfused today. Patient is also receiving a fluid bolus for low blood pressure. Patient is awake, denies any specific complaints, is a bit confused, but denies any nausea vomiting abdominal pain and she is not even aware that she is having any issues with GI bleeding. Patient was already seen by gastroenterology on consultation, and she was placed on Protonix. In the ICU patient is receiving her first unit of packed RBCs and I recommended a 500 mL of fluid boluses using 0.9 normal saline. Review of Systems ROS unobtainable: due to mental status Past Medical History Past Medical History: Coronary Artery Disease (CAD), Dementia, Hypertension, Osteoarthritis (OA) Additional Past Medical History / Comment(s): constipation, STRESS TEST 11-04-15 ,ARTHRITIS IN HANDS, GAIT PROBLEMS/HAS HAD FALLS WHERE SHE HAS FX C1, RT SHOULDER, NOSE(NO SX DONE ON ANY OF THEM), UNABLE TO OBTAIN ANSWERS FROM PT FOR DEPRESSION RISK SCREEN BUT FAMILY STATED SHE MAY HAVE SOME MILD /D/T HER DEMENTIA. History of Any Multi-Drug Resistant Organisms: None Reported Past Surgical History: Orthopedic Surgery Additional Past Surgical History / Comment(s): rt knee Past Anesthesia/Blood Transfusion Reactions: No Reported Reaction Past Psychological History: Anxiety Smoking Status: Never smoker Past Alcohol Use History: None Reported Past Drug Use History: None Reported - Past Family History Mother Family Medical History: Congestive Heart Failure (CHF), Myocardial Infarction ( [place]) Father Family Medical History: Cancer Medications and Allergies Home Medications Medication Instructions Recorded Confirmed Type ALPRAZolam [Xanax] 0.5 mg PO HS 07/04/15 08/19/16 History Citalopram Hydrobromide [CeleXA] 20 mg PO DAILY 11/04/15 08/19/16 History ALPRAZolam [Xanax] 0.25 mg PO DAILY 06/22/16 08/19/16 History HYDROcodone/APAP 5-325MG [[place] 1 tab PO TID PRN 06/22/16 08/19/16 History 5-325] Lisinopril 40 mg PO DAILY 06/22/16 08/19/16 History Carvedilol [Coreg] 3.125 mg PO DAILY 07/13/16 08/19/16 History Diclofenac Potassium [Cataflam] 50 mg PO BID 07/13/16 08/19/16 History Lactulose 10 gm PO DAILY 07/13/16 08/19/16 History Cholecalciferol [Vitamin D3] 2,000 unit PO DAILY 08/19/16 08/19/16 History Spironolactone [Aldactone] 25 mg PO DIRECTED 08/19/16 08/19/16 History amLODIPine [Norvasc] 2.5 mg PO DAILY 08/19/16 08/19/16 History traZODone HCL 50 mg PO HS 08/19/16 08/19/16 History Allergies Allergy/AdvReac Type Severity Reaction Status Date / Time erythromycin base Allergy Rash/Hives Verified 08/19/16 16:03 hydrochlorothiazide Allergy Rapid Verified 08/19/16 16:03 Heart Rate ibandronate sodium Allergy Dyspnea Verified 08/19/16 16:03 [From [facility]] Penicillins Allergy Rash/Hives Verified 08/19/16 16:03 Physical Exam Vitals: Vital Signs Temp Pulse Pulse Pulse Resp BP BP 08/22/16 10:07 95 21 75/45 08/22/16 09:55 97.6 F 89 11 L 81/53 08/22/16 09:45 98.4 F 94 17 79/50 08/22/16 09:16 98.9 F 104 H 15 76/57 08/22/16 08:30 102 H 16 90/41 08/22/16 08:20 101 H 81/51 08/22/16 08:10 100 18 85/62 08/22/16 08:05 113 H 79/44 08/22/16 08:00 102 H 26 H 135/92 08/22/16 07:00 98 F 81 16 116/72 08/21/16 22:09 98.1 F 85 16 117/70 08/21/16 16:00 89 17 08/21/16 15:00 98.8 F 89 17 129/70 Pulse Ox 08/22/16 10:07 100 08/22/16 09:55 99 08/22/16 09:45 99 08/22/16 09:16 99 08/22/16 08:30 08/22/16 08:20 08/22/16 08:10 100 08/22/16 08:05 08/22/16 08:00 08/22/16 07:00 97 08/21/16 22:09 98 08/21/16 16:00 08/21/16 15:00 97 Intake and Output 08/21/16 08/22/16 08/22/16 22:59 06:59 14:59 Intake Total 200 1040 625 Balance 200 1040 625 Intake: IV 200 800 625 Sodium Chloride 0.9% 1, 200 800 625 000 ml @ 125 mls/hr IV . Q8H [facility] Rx#:[id number] Oral 240 Blood Product 0 Rc As-1 Unit 0 [id number] Other: Voiding Method Diaper Diaper Diaper Incontinent # Voids 3 # Bowel Movements 1 Physical Exam: Revealed an 85-year-old female slightly pale, in no distress. HEENT:[Neck is supple.] [No neck masses.] [No thyromegaly.] [No JVD.] Chest: [Clear throughout, no crackles, no rhonchi, no wheezes.] Cardiac Exam: [Normal S1 and S2, no S3 gallop, no murmur.] Abdomen: [Soft, nontender, no megaly, no rebound, no guarding, normal bowel sounds.] Extremities: [No clubbing, no edema, no cyanosis.] Neurological Exam: [No focal neurologic deficit.] Results - Laboratory Findings CBC and BMP: 08/22/16 08:17 08/22/16 08:17 PT/INR, D-dimer PT 11.3 sec (9.0-12.0) 08/22/16 08: INR 1.1 (<1.1) 08/22/16 08:17 Abnormal lab findings: Abnormal Labs 08/20/16 08/20/16 08/21/16 06:49 06:49 06:40 WBC 11.3 H RBC 3.49 L 3.50 L Hgb 8.4 L 8.3 L Hct 27.9 L 28.3 L MCV MCH 24.0 L 23.7 L MCHC 30.0 L 29.4 L Plt Count 592 H 565 H Neutrophils # 8.1 H Potassium 5.6 H Chloride Carbon Dioxide 21 L BUN 21 H Creatinine 1.46 H Glucose POC Glucose (mg/dL) TIBC Albumin 3.4 L 08/21/16 08/22/16 08/22/16 06:40 08:17 08:17 WBC 14.3 H RBC 2.98 L Hgb 7.3 L Hct 23.7 L MCV 79.8 L MCH 24.4 L MCHC 30.6 L Plt Count 604 H Neutrophils # 8.8 H Potassium 5.3 H Chloride 108 H Carbon Dioxide 21 L 17 L BUN 30 H Creatinine 1.43 H 1.29 H Glucose 116 H POC Glucose (mg/dL) TIBC 224 L Albumin 08/22/16 08:59 WBC RBC Hgb Hct MCV MCH MCHC Plt Count Neutrophils # Potassium Chloride Carbon Dioxide BUN Creatinine Glucose POC Glucose (mg/dL) 122 H TIBC Albumin - Diagnostic Findings Additional studies: CT of the abdomen and pelvis showed small hiatal hernia mild atelectasis of the lung bases and thickening of the wall of the duodenum that could relate to duodenitis and gastritis. Assessment and Plan Plan: Impression: 1 acute GI bleeding most likely related to nonsteroidal inflammatory drugs and the most likely source is gastritis or duodenitis. However other sources of GI bleeding are not entirely ruled out. Patient is to receive Protonix, 2 units of packed RBCs were ordered by the admitting physician, she will receive a fluid bolus of 500 mL of 0.9 normal saline and will continue to monitor in the ICU. Patient may require EGD if the bleeding is not controlled conservatively. 2 Multiple comorbidities including coronary artery disease, dementia, hypertension, and osteoarthritis. Patient will be closely monitored in the ICU, and we'll continue to follow. Time with Patient: Greater than 30
[2016-08-22] MEDS: PANTOPRAZOLE 40 MG/10 ML VIAL IVP SCH ×2 (10:33→21:15)
[2016-08-22 16:07] LABS: Anisocytosis Slight; CH 26.3; CHCM 31.7; HCT 25.1 % (34.0-46.0); HDW 3.75; Hypochromasia Moderate; MCH 26.5 pg (25.0-35.0); MCV 82.7 fL (80.0-100.0); Mean Platelet Volume 7.7; Poikilocytosis Slight; RBC 3.03 m/uL (3.80-5.40); RDW 16.5 % (11.5-15.5); WBC 13.3 k/uL (3.8-10.6)
[2016-08-22] MEDS ORDERED: NALOXONE 0.4 MG/ML 1 ML VIAL IV PRN (17:36)
[2016-08-22] MEDS: ONDANSETRON 4 MG/2 ML VIAL IVP PRN (18:11)
[2016-08-22] MEDS: traZODone HCL 50 MG TAB PO SCH (21:15)
[2016-08-22] MEDS: QUEtiapine 25 MG TAB PO SCH (21:15)
--- NOTE | 2016-08-22 22:34 | PN ---
SUBJECTIVE DATA AND INTERVAL HISTORY: This is an 85-year-old female with advanced dementia who was admitted to the hospital with new-onset abdominal pain. Patient apparently had a CT scan of the abdomen and pelvis which showed some inflammatory changes around the duodenum and gastric fundus. Patient was admitted and was started on IV Protonix. Initial thought was that it was likely secondary to an NSAID-induced severe gastritis. A GI consultation was placed. Patient was having some maroon-colored stools. However, this morning I was paged to evaluate the patient emergently; patient apparently had a large bloody emesis with clots that were noted. Patient thereafter was hypotensive; blood pressure in the 70s to 85 systolic range over 40 to 60 diastolic range. Patient was also tachycardic at this time. Most of the history is obtained from chart review, as patient is unreliable and inconsistent with her answers. Patient was immediately evaluated. An IV fluid bolus was given and emergent blood transfusions were ordered. Patient was also thereafter triaged in the ICU. OBJECTIVE DATA: Vital signs include temperature 97.6. Heart rate ranged from 89 to 115. Blood pressure as described above. Respiratory rate was 17. Saturating 97% on room air. GENERAL APPEARANCE: Patient did not appear to be in distress. Pupils round and reactive to light and accommodation. Conjunctivae pallor is appreciated. LUNGS: Good air entry. Clear to auscultation. CHEST: S1, S2 heard. No murmurs appreciated. ABDOMEN: Soft. No guarding or rigidity noted. Non-tender to palpation. Bowel sounds intact. NEUROLOGICAL EXAMINATION: Deferred due to patient's advanced dementia; however, patient was moving all 4 extremities. LABORATORY DATA: Hemoglobin 7.3, hematocrit 23.7. White count 14.3, platelets 604. Sodium 139, potassium 5, chloride 108, bicarb 17. BUN 30, creatinine of 1.29. ASSESSMENT AND PLAN: 1. Acute blood loss anemia that was slightly symptomatic, likely upper gastrointestinal in location, secondary to non-steroidal anti-inflammatory drug use. 2. Advanced dementia. 3. Coronary artery disease. 4. Hypertension. 5. Osteoarthritis. 6. Mild thrombocytosis. 7. Non-anion gap metabolic acidosis. 8. Chronic kidney disease, stage III, with acute kidney injury, likely prerenal in nature secondary to blood loss. RECOMMENDATIONS: Continue IV Protonix. Blood transfusion as needed if hemoglobin is less than 7 or symptomatic. Patient does have advanced dementia. I did direct to find out the goals of care per family, as patient does have advanced dementia; however, NSAID therapy and other medications that would cause worsening of gastritis should strictly be avoided. Continue PPI therapy. Await recommendations from GI physician. Patient will likely need an upper endoscopy at this time.
[2016-08-23 00:08] LABS: Anisocytosis Slight; CHCM 30.9; HDW 3.82; HGB 7.6 gm/dL (11.4-16.0); Hypochromasia Marked; MCH 26.6 pg (25.0-35.0); MCHC 31.5 g/dL (31.0-37.0); MCV 84.3 fL (80.0-100.0); Mean Platelet Volume 7.1; Poikilocytosis Slight; RBC 2.84 m/uL (3.80-5.40); RDW 16.4 % (11.5-15.5); WBC 12.7 k/uL (3.8-10.6)
[2016-08-23] MEDS: SODIUM CHLORIDE 0.9% 1,000 ML IV SCH ×3 (05:05→20:00)
[2016-08-23 05:19] LABS: ALT 26 U/L (9-52); AST 14 U/L (14-36); Alkaline Phosphatase 60 U/L (38-126); Anion Gap 10 mmol/L; Blood Urea Nitrogen 28 mg/dL (7-17); Calcium 8.2 mg/dL (8.4-10.2); Carbon Dioxide 18 mmol/L (22-30); Chloride 111 mmol/L (98-107); Glucose 69 mg/dL (74-99); Magnesium 1.5 mg/dL (1.6-2.3); Non-African American GFR(MDRD) 53 (>60 ml/min/1.73 sqM); Phosphorous 2.8 mg/dL (2.5-4.5); Potassium 4.4 mmol/L (3.5-5.1); Sodium 139 mmol/L (137-145); Total Bilirubin 0.7 mg/dL (0.2-1.3)
[2016-08-23 05:24] LABS: INR 1.1 (<1.1); Prothrombin Time 11.1 sec (9.0-12.0)
[2016-08-23 05:25] LABS: Anisocytosis Slight; Basophils # (A) 0.1 k/uL (0-0.2); Basophils % (A) 0 %; CH 26.3; CHCM 31.3; Eosinophils # (A) 0.2 k/uL (0-0.7); Eosinophils % (A) 1 %; HCT 23.9 % (34.0-46.0); HDW 3.79; HGB 7.3 gm/dL (11.4-16.0); Hypochromasia Marked; Luc # (Auto) 0.13; Luc % (Auto) 1; Lymphocytes # (A) 2.9 k/uL (1.0-4.8); Lymphocytes % (A) 24 %; MCH 25.8 pg (25.0-35.0); MCHC 30.6 g/dL (31.0-37.0); MCV 84.1 fL (80.0-100.0); Mean Platelet Volume 8.1; Monocytes # (A) 0.6 k/uL (0-1.0); Monocytes % (A) 5 %; Neutrophils # (A) 8.3 k/uL (1.3-7.7); Neutrophils % (A) 68 %; Poikilocytosis Slight; RBC 2.84 m/uL (3.80-5.40); RDW 16.7 % (11.5-15.5); WBC 12.2 k/uL (3.8-10.6); WBC (Perox) 13.16
[2016-08-23] MEDS ORDERED: Magnesium Replacement Protocol 1 EACH MISC MISCELLANE PRN (05:40)
[2016-08-23] MEDS: MAGNESIUM SULFATE-D5W PMX 1 GM in DEXTROSE/WATER 1 100ML.BAG IVPB SCH ×2 (06:08→09:28)
--- NOTE | 2016-08-23 07:42 | XR ---
EXAMINATION TYPE: XR chest 1V DATE OF EXAM: 08/23/2016 6:50 AM COMPARISON: 08/19/2016 HISTORY: 85 year-old female shortness of breath TECHNIQUE: Single frontal view of the chest is obtained. FINDINGS: Heart remains mildly enlarged with ectatic/tortuous thoracic aorta. Stable mild interstitial prominen ce and hyperinflation. Some slight increased patchy bibasilar densities. Old fracture left humeral arroyo rgical neck. IMPRESSION: Stable cardiomegaly and suspected underlying COPD. Slight increasing patchy bibasilar atelectasis. Ea rly infiltrates considered less likely.
--- NOTE | 2016-08-23 09:00 | P.PN ---
Subjective Principal diagnosis: Hematemesis GI bleed 85-year-old female with dementia and recent NSAID usage admitted with nausea vomiting abdominal pain maroon-colored bowel movements with CT abdomen and pelvis reported uncomplicated diverticulosis gastritis duodenitis. Yesterday she had a large hematemesis with clots. Hemoglobin ranged 7.3-8.8. Current hemoglobin 7.3. She received 2 units of blood yesterday. INR 1.1. Objective - Vital Signs Vital signs: Vital Signs Temp 98.2 F 08/23/16 04:00 Pulse 61 08/23/16 06:00 Resp 11 L 08/23/16 06:00 BP 126/68 08/23/16 06:00 Pulse Ox 100 08/23/16 06:00 Intake & Output 08/22/16 08/23/16 08/23/16 18:59 06:59 18:59 Intake Total 2745 1500 Output Total 575 1165 Balance 2170 335 Weight 61.1 kg Intake: IV 2125 1500 Sodium Chloride 0.9% 1, 2125 1500 000 ml @ 125 mls/hr IV . Q8H [facility] Rx#:[id number] Blood Product 620 Rc As-1 Unit 310 [id number] Rc Pheresis 2 As3 Unit 310 [id number] Output: Urine 575 1165 Other: Voiding Method Indwelling Catheter Indwelling Catheter # Bowel Movements 1 - Exam General appearance: The patient is alert, self only confused in no acute distress. HET: Head is normocephalic and atraumatic. Pupils are equal and reactive. Oropharynx is clear without lesions. Neck: Supple without lymphadenopathy. Trachea midline. Heart: S1 S2. Regular rate and rhythm. Lungs: No crackles or wheezes are heard. Abdomen: Soft, mild midepigastric tenderness, nondistended with bowel sounds. No peritoneal signs. No palpable organomegaly or masses. Extremities: Normal skin color and turgor. No cyanosis, rash, ulceration, clubbing, or edema. Radial and pedal pulses are 2/4 bilaterally. Neurological: No focal deficits. Strength and sensation are grossly intact. - Labs CBC & Chem 7: 08/23/16 04:42 08/23/16 04:42 Labs: Abnormal Lab Results - Last 24 Hours (Table) 08/22/16 08/22/16 08/22/16 Range/Units 08:59 15:45 23:43 WBC 13.3 H 12.7 H (3.8-10.6) k/uL RBC 3.03 L 2.84 L (3.80-5.40) m/uL Hgb 8.0 L 7.6 L (11.4-16.0) gm/dL Hct 25.1 L 24.0 L (34.0-46.0) % MCHC (31.0-37.0) g/dL RDW 16.5 H 16.4 H (11.5-15.5) % Neutrophils # (1.3-7.7) k/uL Chloride (98-107) mmol/L Carbon Dioxide (22-30) mmol/L BUN (7-17) mg/dL Glucose (74-99) mg/dL POC Glucose (mg/dL) 122 H (75-99) mg/dL Calcium (8.4-10.2) mg/dL Magnesium (1.6-2.3) mg/dL Total Protein (6.3-8.2) g/dL Albumin (3.5-5.0) g/dL 08/23/16 08/23/16 Range/Units 04:42 04:42 WBC 12.2 H (3.8-10.6) k/uL RBC 2.84 L (3.80-5.40) m/uL Hgb 7.3 L (11.4-16.0) gm/dL Hct 23.9 L (34.0-46.0) % MCHC 30.6 L (31.0-37.0) g/dL RDW 16.7 H (11.5-15.5) % Neutrophils # 8.3 H (1.3-7.7) k/uL Chloride 111 H (98-107) mmol/L Carbon Dioxide 18 L (22-30) mmol/L BUN 28 H (7-17) mg/dL Glucose 69 L (74-99) mg/dL POC Glucose (mg/dL) (75-99) mg/dL Calcium 8.2 L (8.4-10.2) mg/dL Magnesium 1.5 L (1.6-2.3) mg/dL Total Protein 5.0 L (6.3-8.2) g/dL Albumin 2.4 L (3.5-5.0) g/dL Assessment and Plan (1) Acute GI bleeding Narrative/Plan: 85-year-old female with recent NSAID usage with underlying dementia presents with acute GI bleed, abdominal pain, nausea vomiting maroon colored stools with subsequent development of large hematemesis with clots possible peptic ulcer disease with acute blood loss anemia. Status: Acute (2) Hematemesis Status: Acute (3) Acute blood loss anemia Status: Acute (4) Chronic kidney disease (CKD) Status: Acute Plan: 1. EGD evaluation today. 2. IV Protonix 40 mg twice daily. 3. CBC monitoring. Assessment and plan of care discussed with Dr. Valente.
[2016-08-23] MEDS: DOCUSATE ORAL SOLN 100 MG/10 ML CUP PO SCH ×2 (09:29→20:53)
[2016-08-23] MEDS: LACTULOSE 20 GM/30 ML CUP PO SCH (09:29)
[2016-08-23] MEDS: amLODIPine 5 MG TAB PO SCH (09:29)
[2016-08-23] MEDS: CITALOPRAM HYDROBROMIDE 20 MG TAB PO SCH (09:29)
[2016-08-23] MEDS: CARVEDILOL 3.125 MG TAB PO SCH (09:29)
[2016-08-23] MEDS: PANTOPRAZOLE 40 MG/10 ML VIAL IVP SCH ×2 (09:51→20:53)
[2016-08-23 13:26] LABS: Anisocytosis Slight; CH 26.2; CHCM 30.9; HDW 3.72; HGB 7.6 gm/dL (11.4-16.0); Hypochromasia Marked; MCH 25.7 pg (25.0-35.0); MCHC 30.2 g/dL (31.0-37.0); MCV 85.1 fL (80.0-100.0); Mean Platelet Volume 7.8; Poikilocytosis Slight; RBC 2.94 m/uL (3.80-5.40); RDW 16.8 % (11.5-15.5); WBC 10.3 k/uL (3.8-10.6)
--- NOTE | 2016-08-23 14:29 | P.PN ---
Subjective Principal diagnosis: Acute GI bleeding This is an 85-year-old female with history of dementia, hypertension, degenerative joint disease, depression, patient was brought into the ER on 2016 with acute onset of abdominal pain that presented that same day. Pain was associated with nausea and vomiting, she had 2 episodes of nausea and vomiting, but no documentation of any hematemesis or melena at the time. Laboratory studies revealed mild leukocytosis, and there was a 2 g drop in her hemoglobin from previous visit. There was also evidence of hyperkalemia. CT of the abdomen and pelvis showed inflammatory changes around the duodenum and gastric fundus. Hence the patient was admitted with the impression of upper GI bleeding secondary to duodenitis/gastritis most likely related to the fact that the patient has been using nonsteroidal anti-inflammatory drugs. Her initial hemoglobin on 08/19/2016 was 8.8, this morning her hemoglobin was 7.3, and patient was noted to have low blood pressure, she was also noted to have maroon colored stools. Hence the patient was transferred to the ICU, and she is now receiving her first unit of packed RBCs she is scheduled to have 2 of them transfused today. Patient is also receiving a fluid bolus for low blood pressure. Patient is awake, denies any specific complaints, is a bit confused, but denies any nausea vomiting abdominal pain and she is not even aware that she is having any issues with GI bleeding. Patient was already seen by gastroenterology on consultation, and she was placed on Protonix. In the ICU patient is receiving her first unit of packed RBCs and I recommended a 500 mL of fluid boluses using 0.9 normal saline. Patient was reevaluated today on 08/23/2016, she received so far 2 units of packed RBCs, had 2 episodes of maroon colored stools last night, and I believe the patient is scheduled for EGD today. Her hemoglobin this morning was 7.3, repeated at 1 PM it was 7.6. Obviously the patient is not having any active bleeding based on the stability of the hemoglobin. Electrolytes and renal profile were noted to be normal, patient is not in any form of distress, and again EGD is scheduled to be done today. Objective - Vital Signs Vital signs: Vital Signs Temp 97.6 F 08/23/16 12:00 Pulse 57 L 08/23/16 14:00 Resp 8 L 08/23/16 14:00 BP 129/73 08/23/16 14:00 Pulse Ox 100 08/23/16 14:00 Intake & Output 08/22/16 08/23/16 08/23/16 18:59 06:59 18:59 Intake Total 2745 1500 1075 Output Total 575 1165 970 Balance 2170 335 105 Weight 61.1 kg Intake: IV 2125 1500 875 Sodium Chloride 0.9% 1, 2125 1500 875 000 ml @ 125 mls/hr IV . Q8H [facility] Rx#:[id number] Intake, IV Titration 200 Amount Magnesium Sulfate-D5w Pmx 200 1 gm In Dextrose/Water 1 100ml.bag @ 100 mls/hr IVPB Q1H [facility] Rx#: [id number] Blood Product 620 Rc As-1 Unit 310 [id number] Rc Pheresis 2 As3 Unit 310 [id number] Output: Urine 575 1165 970 Other: Voiding Method Indwelling Catheter Indwelling Catheter Indwelling Catheter # Bowel Movements 1 - Exam Physical Exam: Revealed an 85-year-old female slightly pale, in no distress. HEENT:[Neck is supple.] [No neck masses.] [No thyromegaly.] [No JVD.] Chest: [Clear throughout, no crackles, no rhonchi, no wheezes.] Cardiac Exam: [Normal S1 and S2, no S3 gallop, no murmur.] Abdomen: [Soft, nontender, no megaly, no rebound, no guarding, normal bowel sounds.] Extremities: [No clubbing, no edema, no cyanosis.] Neurological Exam: [No focal neurologic deficit. Except the patient seems to be a bit confused.] - Labs CBC & Chem 7: 08/23/16 13:09 08/23/16 04:42 Labs: Abnormal Lab Results - Last 24 Hours (Table) 08/22/16 08/22/16 08/23/16 Range/Units 15:45 23:43 04:42 WBC 13.3 H 12.7 H 12.2 H (3.8-10.6) k/uL RBC 3.03 L 2.84 L 2.84 L (3.80-5.40) m/uL Hgb 8.0 L 7.6 L 7.3 L (11.4-16.0) gm/dL Hct 25.1 L 24.0 L 23.9 L (34.0-46.0) % MCHC 30.6 L (31.0-37.0) g/dL RDW 16.5 H 16.4 H 16.7 H (11.5-15.5) % Neutrophils # 8.3 H (1.3-7.7) k/uL Chloride (98-107) mmol/L Carbon Dioxide (22-30) mmol/L BUN (7-17) mg/dL Glucose (74-99) mg/dL Calcium (8.4-10.2) mg/dL Magnesium (1.6-2.3) mg/dL Total Protein (6.3-8.2) g/dL Albumin (3.5-5.0) g/dL 08/23/16 08/23/16 Range/Units 04:42 13:09 WBC (3.8-10.6) k/uL RBC 2.94 L (3.80-5.40) m/uL Hgb 7.6 L (11.4-16.0) gm/dL Hct 25.0 L (34.0-46.0) % MCHC 30.2 L (31.0-37.0) g/dL RDW 16.8 H (11.5-15.5) % Neutrophils # (1.3-7.7) k/uL Chloride 111 H (98-107) mmol/L Carbon Dioxide 18 L (22-30) mmol/L BUN 28 H (7-17) mg/dL Glucose 69 L (74-99) mg/dL Calcium 8.2 L (8.4-10.2) mg/dL Magnesium 1.5 L (1.6-2.3) mg/dL Total Protein 5.0 L (6.3-8.2) g/dL Albumin 2.4 L (3.5-5.0) g/dL Assessment and Plan Plan: Impression: 1 acute GI bleeding most likely related to nonsteroidal inflammatory drugs and the most likely source is gastritis or duodenitis. However other sources of GI bleeding are not entirely ruled out. Patient is to receive Protonix, 2 units of packed RBCs will transfuse so far,will continue to monitor in the ICU. Patient is scheduled for EGD today. 2 Multiple comorbidities including coronary artery disease, dementia, hypertension, and osteoarthritis. Patient will be closely monitored in the ICU, and we'll continue to follow. Time with Patient: Less than 30
[2016-08-23] MEDS: MORPHINE SULFATE 4 MG/ML SYRINGE IV PRN ×2 (14:52→19:46)
[2016-08-23] MEDS ORDERED: IV FLUID CONTINUATION 1,000 ML IV ONE (15:42)
[2016-08-23] MEDS ORDERED: PROPOFOL 10 MG/ML 20 ML VIAL IV ONE (15:55)
--- NOTE | 2016-08-23 17:06 | P.PCN ---
Date of Procedure: 08/23/16 Procedure(s) Performed: Procedure: Esophagogastroduodenoscopy and biopsy. Preoperative diagnosis: Upper GI bleeding. Postoperative diagnosis: 1. Duodenal bulb ulcer not actively bleeding at the time of this exam and not causing obstruction. 2. Gastritis and duodenitis, biopsy obtained to rule out H. pylori infection. Preparation and sedation: Was provided by anesthesia. Brief clinical history: The patient is an 85-year old female with history of dementia who is taking NSAIDs, was admitted to the hospital for abdominal pain, nausea and vomiting. CT showed uncomplicated diverticulosis and gastritis and duodenitis. The patient was started on PPI. She was transferred to the intensive care unit yesterday because of hematemesis and drop in her hemoglobin while on . She also had drop in her hemoglobin to around 7.3, today it is 7.6. The details are summarized in the history and physical and dictated consultation. This evaluation is to assess for a source of GI bleeding. Procedure: With the patient on her left lateral decubitus position and after informed consent and adequate sedation, I passed the Olympus-GIF 160 video upper endoscope through the cricopharyngeus down the esophagus. The esophagus did not show any ulcers, erosions, strictures, mucosal tears or varices. The endoscope was then passed into the stomach which was insufflated with air and inspected in detail including the retroflex view in the cardia. There was some mottling and erythema in the antrum but no ulcers or erosions. Pyloric channel did not show any ulcers. Duodenal bulb showed some erythema and edema and in the distal bulb and stradling the post bulbar area, there was a large duodenal ulcer covered with white exudate not manifesting any spontaneous bleeding or showing any dark protuberances, clots or oozing of blood. There was no obstruction to the advancement of the endoscope into the descending duodenum. All secretions encountered in the duodenum, stomach and esophagus were either clear or bilious in color. I obtained biopsies from the antrum to rule out H. pylori infection then the endoscope was withdrawn. The patient tolerated the procedure well. Plan: The patient and her family where reassured and briefed about the findings on this exam. She is already on PPI which would be continued. Will await biopsy results. In the meantime, Will allow clear liquids today then her diet can be advanced to soft diet tomorrow as tolerated.
--- NOTE | 2016-08-23 17:53 | P.PN ---
Subjective This is a 85-year-old female with advanced dementia that was triaged ICU after noting to have a large emesis with clots and bright red blood. Patient apparently was using NSAIDs for chronic pain control in the past. Prograf patient was slightly hypotensive on 08/22/2016. Patient was given 1 unit of PRBC and was given IV fluid boluses and thereafter triaged ICU for ongoing care. Patient denies having any additional complaints at this time. On 08/23/2016 Patient's daughter was at bedside. She denies having any additional complaints. Does state to have pain on deep palpation of her epigastric region. Objective - Vital Signs Vital signs: Vital Signs Temp 97.6 F 08/23/16 12:00 Pulse 66 08/23/16 15:00 Resp 7 L 08/23/16 15:00 BP 130/63 08/23/16 15:00 Pulse Ox 98 08/23/16 15:00 Intake & Output 08/22/16 08/23/16 08/23/16 18:59 06:59 18:59 Intake Total 2745 1500 1300 Output Total 575 1165 1170 Balance 2170 335 130 Weight 61.1 kg Intake: IV 2125 1500 1100 Sodium Chloride 0.9% 1, 2125 1500 1000 000 ml @ 125 mls/hr IV . Q8H [facility] Rx#:[id number] Intake, IV Titration 200 Amount Magnesium Sulfate-D5w Pmx 200 1 gm In Dextrose/Water 1 100ml.bag @ 100 mls/hr IVPB Q1H [facility] Rx#: [id number] Blood Product 620 Rc As-1 Unit 310 [id number] Rc Pheresis 2 As3 Unit 310 [id number] Output: Urine 575 1165 1170 Other: Voiding Method Indwelling Catheter Indwelling Catheter Indwelling Catheter # Bowel Movements 1 - Exam Physical exam Gen. appearance alert to self Neck is supple no JVD Lungs good air entry clear to auscultation no rhonchi or wheezing Heart S1-S2 heard regular rate and rhythm no murmurs appreciated Abdomen is soft nontender no organomegaly bowel sounds are intact Neurologically cranial nerves II-12 grossly intact no focal motor or sensory deficits noted Skin no abnormalities appreciated - Labs CBC & Chem 7: 08/23/16 13:09 08/23/16 04:42 Labs: Abnormal Lab Results - Last 24 Hours (Table) 08/22/16 08/23/16 08/23/16 Range/Units 23:43 04:42 04:42 WBC 12.7 H 12.2 H (3.8-10.6) k/uL RBC 2.84 L 2.84 L (3.80-5.40) m/uL Hgb 7.6 L 7.3 L (11.4-16.0) gm/dL Hct 24.0 L 23.9 L (34.0-46.0) % MCHC 30.6 L (31.0-37.0) g/dL RDW 16.4 H 16.7 H (11.5-15.5) % Neutrophils # 8.3 H (1.3-7.7) k/uL Chloride 111 H (98-107) mmol/L Carbon Dioxide 18 L (22-30) mmol/L BUN 28 H (7-17) mg/dL Glucose 69 L (74-99) mg/dL Calcium 8.2 L (8.4-10.2) mg/dL Magnesium 1.5 L (1.6-2.3) mg/dL Total Protein 5.0 L (6.3-8.2) g/dL Albumin 2.4 L (3.5-5.0) g/dL 08/23/16 Range/Units 13:09 WBC (3.8-10.6) k/uL RBC 2.94 L (3.80-5.40) m/uL Hgb 7.6 L (11.4-16.0) gm/dL Hct 25.0 L (34.0-46.0) % MCHC 30.2 L (31.0-37.0) g/dL RDW 16.8 H (11.5-15.5) % Neutrophils # (1.3-7.7) k/uL Chloride (98-107) mmol/L Carbon Dioxide (22-30) mmol/L BUN (7-17) mg/dL Glucose (74-99) mg/dL Calcium (8.4-10.2) mg/dL Magnesium (1.6-2.3) mg/dL Total Protein (6.3-8.2) g/dL Albumin (3.5-5.0) g/dL Assessment and Plan Plan: #1 acute blood loss anemia that is stable and improved. #2 large duodenal bulb ulcer #3 advanced dementia #4 CAD #5 hypertension #6 osteoarthritis #7 mild thrombocytosis #8 CK D stage III with an acute component which is improved without underlying ATN Plan Continue ongoing care. Repeat hemoglobin. Patient can likely be triaged ICU. Continue PPI therapy for ulcer which is likely in view secondary to NSAID therapy. Await biopsy results rule out H. pylori infection.
[2016-08-23] MEDS: traZODone HCL 50 MG TAB PO SCH (20:53)
[2016-08-23] MEDS: QUEtiapine 25 MG TAB PO SCH (20:53)
[2016-08-24] MEDS: SODIUM CHLORIDE 0.9% 1,000 ML IV SCH ×3 (04:00→20:00)
[2016-08-24 10:02] LABS: Anisocytosis Slight; Basophils % (A) 0 %; CH 26.1; CHCM 30.7; Eosinophils # (A) 0.2 k/uL (0-0.7); Eosinophils % (A) 1 %; HCT 23.9 % (34.0-46.0); HDW 3.68; HGB 7.3 gm/dL (11.4-16.0); Hypochromasia Marked; Luc # (Auto) 0.08; Luc % (Auto) 1; Lymphocytes # (A) 1.8 k/uL (1.0-4.8); Lymphocytes % (A) 18 %; MCH 26.1 pg (25.0-35.0); MCHC 30.7 g/dL (31.0-37.0); Mean Platelet Volume 7.8; Monocytes # (A) 0.5 k/uL (0-1.0); Monocytes % (A) 4 %; Neutrophils # (A) 7.9 k/uL (1.3-7.7); Neutrophils % (A) 76 %; Poikilocytosis Slight; RBC 2.81 m/uL (3.80-5.40); RDW 17.1 % (11.5-15.5); WBC 10.5 k/uL (3.8-10.6); WBC (Perox) 10.27
[2016-08-24] MEDS: amLODIPine 5 MG TAB PO SCH (10:02)
[2016-08-24] MEDS: PANTOPRAZOLE 40 MG/10 ML VIAL IVP SCH ×2 (10:02→21:59)
[2016-08-24] MEDS: DOCUSATE ORAL SOLN 100 MG/10 ML CUP PO SCH ×2 (10:02→21:26)
[2016-08-24] MEDS: LACTULOSE 20 GM/30 ML CUP PO SCH (10:02)
[2016-08-24] MEDS: CARVEDILOL 3.125 MG TAB PO SCH (10:03)
[2016-08-24] MEDS: CITALOPRAM HYDROBROMIDE 20 MG TAB PO SCH (10:03)
[2016-08-24 10:16] LABS: Anion Gap 9 mmol/L; Blood Urea Nitrogen 16 mg/dL (7-17); Calcium 8.5 mg/dL (8.4-10.2); Carbon Dioxide 23 mmol/L (22-30); Chloride 108 mmol/L (98-107); Glucose 97 mg/dL (74-99); Magnesium 1.8 mg/dL (1.6-2.3); Non-African American GFR(MDRD) 52 (>60 ml/min/1.73 sqM); Phosphorous 2.9 mg/dL (2.5-4.5); Potassium 4.2 mmol/L (3.5-5.1); Sodium 140 mmol/L (137-145)
--- NOTE | 2016-08-24 10:37 | P.PN ---
Subjective Principal diagnosis: Hematemesis GI bleed 85-year-old female with dementia and recent NSAID usage admitted with nausea vomiting abdominal pain maroon-colored bowel movements with CT abdomen and pelvis reported uncomplicated diverticulosis gastritis duodenitis. Status post EGD yesterday with findings of large nonbleeding duodenal ulcer. Current hemoglobin 7.3. Nurse reports no episodes of hematemesis hematochezia or melena. Objective - Vital Signs Vital signs: Vital Signs Temp 98.7 F 08/24/16 07:00 Pulse 83 08/24/16 07:00 Resp 16 08/24/16 07:00 BP 124/82 08/24/16 07:00 Pulse Ox 92 L 08/24/16 07:00 Intake & Output 08/23/16 08/24/16 08/24/16 18:59 06:59 18:59 Intake Total 1675 1495 Output Total 1745 Balance -70 1495 Weight 57 kg Intake: IV 1475 1375 Sodium Chloride 0.9% 1, 1375 1375 000 ml @ 125 mls/hr IV . Q8H [facility] Rx#:[id number] Intake, IV Titration 200 Amount Magnesium Sulfate-D5w Pmx 200 1 gm In Dextrose/Water 1 100ml.bag @ 100 mls/hr IVPB Q1H [facility] Rx#: [id number] Oral 120 Output: Urine 1745 Other: Voiding Method Indwelling Catheter Incontinent # Voids 2 - Exam General appearance: The patient is alert, self only confused in no acute distress. HET: Head is normocephalic and atraumatic. Pupils are equal and reactive. Oropharynx is clear without lesions. Neck: Supple without lymphadenopathy. Trachea midline. Heart: S1 S2. Regular rate and rhythm. Lungs: No crackles or wheezes are heard. Abdomen: Soft, mild midepigastric tenderness, nondistended with bowel sounds. No peritoneal signs. No palpable organomegaly or masses. Extremities: Normal skin color and turgor. No cyanosis, rash, ulceration, clubbing, or edema. Radial and pedal pulses are 2/4 bilaterally. Neurological: No focal deficits. Strength and sensation are grossly intact. - Labs CBC & Chem 7: 08/24/16 09:10 08/24/16 09:10 Labs: Abnormal Lab Results - Last 24 Hours (Table) 08/23/16 08/24/16 08/24/16 Range/Units 13:09 09:10 09:10 RBC 2.94 L 2.81 L (3.80-5.40) m/uL Hgb 7.6 L 7.3 L (11.4-16.0) gm/dL Hct 25.0 L 23.9 L (34.0-46.0) % MCHC 30.2 L 30.7 L (31.0-37.0) g/dL RDW 16.8 H 17.1 H (11.5-15.5) % Neutrophils # 7.9 H (1.3-7.7) k/uL Chloride 108 H (98-107) mmol/L Assessment and Plan (1) Acute GI bleeding Narrative/Plan: 85-year-old female with recent NSAID usage with underlying dementia presents with acute GI bleed, abdominal pain, nausea vomiting maroon colored stools with subsequent development of large hematemesis with clots possible peptic ulcer disease with acute blood loss anemia status post EGD with findings of large nonbleeding duodenal ulcer. Status: Acute (2) Hematemesis Status: Acute (3) Acute blood loss anemia Status: Acute (4) Chronic kidney disease (CKD) Status: Acute Plan: 1. Full liquids. 2. Continue IV Protonix 40 mg twice daily. 3. CBC monitoring. No NSAIDs or aspirin. 4. Discharge planning. Assessment and plan of care discussed with Dr. Valente.
--- NOTE | 2016-08-24 11:52 | P.PN ---
Subjective Principal diagnosis: Acute GI bleeding This is an 85-year-old female with history of dementia, hypertension, degenerative joint disease, depression, patient was brought into the ER on 2016 with acute onset of abdominal pain that presented that same day. Pain was associated with nausea and vomiting, she had 2 episodes of nausea and vomiting, but no documentation of any hematemesis or melena at the time. Laboratory studies revealed mild leukocytosis, and there was a 2 g drop in her hemoglobin from previous visit. There was also evidence of hyperkalemia. CT of the abdomen and pelvis showed inflammatory changes around the duodenum and gastric fundus. Hence the patient was admitted with the impression of upper GI bleeding secondary to duodenitis/gastritis most likely related to the fact that the patient has been using nonsteroidal anti-inflammatory drugs. Her initial hemoglobin on 08/19/2016 was 8.8, this morning her hemoglobin was 7.3, and patient was noted to have low blood pressure, she was also noted to have maroon colored stools. Hence the patient was transferred to the ICU, and she is now receiving her first unit of packed RBCs she is scheduled to have 2 of them transfused today. Patient is also receiving a fluid bolus for low blood pressure. Patient is awake, denies any specific complaints, is a bit confused, but denies any nausea vomiting abdominal pain and she is not even aware that she is having any issues with GI bleeding. Patient was already seen by gastroenterology on consultation, and she was placed on Protonix. In the ICU patient is receiving her first unit of packed RBCs and I recommended a 500 mL of fluid boluses using 0.9 normal saline. Patient was reevaluated today on 08/23/2016, she received so far 2 units of packed RBCs, had 2 episodes of maroon colored stools last night, and I believe the patient is scheduled for EGD today. Her hemoglobin this morning was 7.3, repeated at 1 PM it was 7.6. Obviously the patient is not having any active bleeding based on the stability of the hemoglobin. Electrolytes and renal profile were noted to be normal, patient is not in any form of distress, and again EGD is scheduled to be done today. Patient was reevaluated today on 08/25/2016, she is doing relatively well, relatively asymptomatic, total units of blood transfusion since admission were 2 units. Patient had some melanotic stools last night, but no active right red blood per rectum. Hemoglobin today is 7.3 EGD findings were reviewed, patient was found to have a duodenal ulcer not actively bleeding, and not causing obstruction. There was evidence of gastritis and duodenitis. Objective - Vital Signs Vital signs: Vital Signs Temp 98.7 F 08/24/16 07:00 Pulse 83 08/24/16 07:00 Resp 16 08/24/16 07:00 BP 124/82 08/24/16 07:00 Pulse Ox 92 L 08/24/16 07:00 Intake & Output 08/23/16 08/24/16 08/24/16 18:59 06:59 18:59 Intake Total 1675 1495 Output Total 1745 Balance -70 1495 Weight 57 kg Intake: IV 1475 1375 Sodium Chloride 0.9% 1, 1375 1375 000 ml @ 125 mls/hr IV . Q8H [facility] Rx#:[id number] Intake, IV Titration 200 Amount Magnesium Sulfate-D5w Pmx 200 1 gm In Dextrose/Water 1 100ml.bag @ 100 mls/hr IVPB Q1H [facility] Rx#: [id number] Oral 120 Output: Urine 1745 Other: Voiding Method Indwelling Catheter Incontinent # Voids 2 - Exam Physical Exam: Revealed an 85-year-old female slightly pale, in no distress. HEENT:[Neck is supple.] [No neck masses.] [No thyromegaly.] [No JVD.] Chest: [Clear throughout, no crackles, no rhonchi, no wheezes.] Cardiac Exam: [Normal S1 and S2, no S3 gallop, no murmur.] Abdomen: [Soft, nontender, no megaly, no rebound, no guarding, normal bowel sounds.] Extremities: [No clubbing, no edema, no cyanosis.] Neurological Exam: [No focal neurologic deficit. Except the patient seems to be a bit confused.] - Labs CBC & Chem 7: 08/24/16 09:10 08/24/16 09:10 Labs: Abnormal Lab Results - Last 24 Hours (Table) 08/23/16 08/24/16 08/24/16 Range/Units 13:09 09:10 09:10 RBC 2.94 L 2.81 L (3.80-5.40) m/uL Hgb 7.6 L 7.3 L (11.4-16.0) gm/dL Hct 25.0 L 23.9 L (34.0-46.0) % MCHC 30.2 L 30.7 L (31.0-37.0) g/dL RDW 16.8 H 17.1 H (11.5-15.5) % Neutrophils # 7.9 H (1.3-7.7) k/uL Chloride 108 H (98-107) mmol/L Assessment and Plan Plan: Impression: 1 acute GI bleeding most likely related to nonsteroidal inflammatory drugs and the most likely source is gastritis or duodenitis as noted on the EGD findings. 2 Multiple comorbidities including coronary artery disease, dementia, hypertension, and osteoarthritis. Continue present treatment plan, we'll sign off for now and see the patient on when necessary basis. Time with Patient: Less than 30
--- NOTE | 2016-08-24 20:01 | P.PN ---
Subjective This is a 85-year-old female with advanced dementia that was triaged ICU after noting to have a large emesis with clots and bright red blood. Patient apparently was using NSAIDs for chronic pain control in the past. Prograf patient was slightly hypotensive on 08/22/2016. Patient was given 1 unit of PRBC and was given IV fluid boluses and thereafter triaged ICU for ongoing care. Patient denies having any additional complaints at this time. On 08/23/2016 Patient's daughter was at bedside. She denies having any additional complaints. Does state to have pain on deep palpation of her epigastric region. 2016 No new overnight events are reported. No bloody bowel movements are reported no episodes of emesis are reported. Objective - Vital Signs Vital signs: Vital Signs Temp 97.8 F 08/24/16 15:00 Pulse 73 08/24/16 15:00 Resp 16 08/24/16 17:46 BP 123/68 08/24/16 15:00 Pulse Ox 95 08/24/16 15:00 Intake & Output 08/24/16 08/24/16 08/25/16 06:59 18:59 06:59 Intake Total 1495 Balance 1495 Weight 57 kg Intake: IV 1375 Sodium Chloride 0.9% 1, 1375 000 ml @ 125 mls/hr IV . Q8H [facility] Rx#:[id number] Oral 120 Other: Voiding Method Incontinent # Voids 2 2 # Bowel Movements 1 - Exam Physical exam Gen. appearance alert to self Neck is supple no JVD Lungs good air entry clear to auscultation no rhonchi or wheezing Heart S1-S2 heard regular rate and rhythm no murmurs appreciated Abdomen is soft nontender no organomegaly bowel sounds are intact Neurologically cranial nerves II-12 grossly intact no focal motor or sensory deficits noted Skin no abnormalities appreciated - Labs CBC & Chem 7: 08/24/16 09:10 08/24/16 09:10 Labs: Abnormal Lab Results - Last 24 Hours (Table) 08/24/16 08/24/16 Range/Units 09:10 09:10 RBC 2.81 L (3.80-5.40) m/uL Hgb 7.3 L (11.4-16.0) gm/dL Hct 23.9 L (34.0-46.0) % MCHC 30.7 L (31.0-37.0) g/dL RDW 17.1 H (11.5-15.5) % Neutrophils # 7.9 H (1.3-7.7) k/uL Chloride 108 H (98-107) mmol/L Assessment and Plan Plan: #1 acute blood loss anemia that is stable and improved. #2 large duodenal bulb ulcer #3 advanced dementia #4 CAD #5 hypertension #6 osteoarthritis #7 mild thrombocytosis #8 CK D stage III with an acute component which is improved without underlying ATN Plan Repeat hemoglobin in the morning. Patient did have a large ulcer according to GI's note monitor for another 24 hours. Will likely be discharged as long as patient appears to be stable. Await NSAIDs.
[2016-08-24] MEDS: QUEtiapine 25 MG TAB PO SCH (21:22)
[2016-08-24] MEDS: traZODone HCL 50 MG TAB PO SCH (21:22)
[2016-08-24] MEDS: MORPHINE SULFATE 4 MG/ML SYRINGE IV PRN (22:00)
[2016-08-25] MEDS: SODIUM CHLORIDE 0.9% 1,000 ML IV SCH ×3 (04:00→13:20)
[2016-08-25 07:45] VITALS: RESP 20; TEMP 97.8
[2016-08-25] MEDS: PANTOPRAZOLE 40 MG/10 ML VIAL IVP SCH (09:00)
[2016-08-25 09:06] LABS: Anion Gap 10 mmol/L; Blood Urea Nitrogen 11 mg/dL (7-17); Calcium 8.6 mg/dL (8.4-10.2); Carbon Dioxide 24 mmol/L (22-30); Chloride 106 mmol/L (98-107); Glucose 80 mg/dL (74-99); Magnesium 1.6 mg/dL (1.6-2.3); Non-African American GFR(MDRD) 57 (>60 ml/min/1.73 sqM); Phosphorous 2.8 mg/dL (2.5-4.5); Potassium 3.8 mmol/L (3.5-5.1); Sodium 140 mmol/L (137-145)
[2016-08-25 09:09] LABS: Anisocytosis Slight; Basophils # (A) 0.1 k/uL (0-0.2); Basophils % (A) 1 %; CH 25.9; CHCM 30.1; Eosinophils # (A) 0.4 k/uL (0-0.7); Eosinophils % (A) 4 %; HCT 25.6 % (34.0-46.0); HDW 3.52; HGB 7.8 gm/dL (11.4-16.0); Hypochromasia Marked; Luc # (Auto) 0.15; Luc % (Auto) 2; Lymphocytes # (A) 1.7 k/uL (1.0-4.8); Lymphocytes % (A) 19 %; MCH 26.1 pg (25.0-35.0); MCHC 30.3 g/dL (31.0-37.0); MCV 86.2 fL (80.0-100.0); Mean Platelet Volume 6.9; Monocytes # (A) 0.4 k/uL (0-1.0); Monocytes % (A) 5 %; Neutrophils # (A) 6.4 k/uL (1.3-7.7); Neutrophils % (A) 70 %; Poikilocytosis Slight; RBC 2.97 m/uL (3.80-5.40); RDW 17.1 % (11.5-15.5); WBC (Perox) 10.22
--- NOTE | 2016-08-25 09:32 | P.PN ---
Subjective Principal diagnosis: Hematemesis GI bleed 85-year-old female with dementia and recent NSAID usage admitted with nausea vomiting abdominal pain maroon-colored bowel movements with CT abdomen and pelvis reported uncomplicated diverticulosis gastritis duodenitis. Status post EGD 2 days ago with findings of large nonbleeding duodenal ulcer. Current hemoglobin 7.8. Nurse reports no episodes of hematemesis hematochezia or melena. Objective - Vital Signs Vital signs: Vital Signs Temp 97.8 F 08/25/16 07:00 Pulse 73 08/25/16 07:00 Resp 20 08/25/16 07:00 BP 147/81 08/25/16 07:00 Pulse Ox 96 08/25/16 07:00 Intake & Output 08/24/16 08/25/16 08/25/16 18:59 06:59 18:59 Intake Total 1495 1375 Balance 1495 1375 Weight 55 kg Intake: IV 1375 Sodium Chloride 0.9% 1, 1375 000 ml @ 125 mls/hr IV . Q8H TIFFANIE Rx#:[id number] Intake, IV Titration 1375 Amount Sodium Chloride 0.9% 1, 1375 000 ml @ 125 mls/hr IV . Q8H TIFFANIE Rx#:[id number] Oral 120 Other: Voiding Method Toilet # Voids 2 2 # Bowel Movements 1 - Exam General appearance: The patient is alert, self only confused in no acute distress. HET: Head is normocephalic and atraumatic. Pupils are equal and reactive. Oropharynx is clear without lesions. Neck: Supple without lymphadenopathy. Trachea midline. Heart: S1 S2. Regular rate and rhythm. Lungs: No crackles or wheezes are heard. Abdomen: Soft, mild midepigastric tenderness, nondistended with bowel sounds. No peritoneal signs. No palpable organomegaly or masses. Extremities: Normal skin color and turgor. No cyanosis, rash, ulceration, clubbing, or edema. Radial and pedal pulses are 2/4 bilaterally. Neurological: No focal deficits. Strength and sensation are grossly intact. - Labs CBC & Chem 7: 08/25/16 08:07 08/25/16 08:07 Labs: Abnormal Lab Results - Last 24 Hours (Table) 08/24/16 08/24/16 08/25/16 Range/Units 09:10 09:10 08:07 RBC 2.81 L 2.97 L (3.80-5.40) m/uL Hgb 7.3 L 7.8 L (11.4-16.0) gm/dL Hct 23.9 L 25.6 L (34.0-46.0) % MCHC 30.7 L 30.3 L (31.0-37.0) g/dL RDW 17.1 H 17.1 H (11.5-15.5) % Neutrophils # 7.9 H (1.3-7.7) k/uL Chloride 108 H (98-107) mmol/L Assessment and Plan (1) Acute GI bleeding Narrative/Plan: 85-year-old female with recent NSAID usage with underlying dementia presents with acute GI bleed, abdominal pain, nausea vomiting maroon colored stools with subsequent development of large hematemesis with clots possible peptic ulcer disease with acute blood loss anemia status post EGD with findings of large nonbleeding duodenal ulcer. Status: Acute (2) Hematemesis Status: Acute (3) Acute blood loss anemia Status: Acute (4) Chronic kidney disease (CKD) Status: Acute Plan: 1. Full liquids advance as tolerated. 2. Continue omeprazole 40 mg daily on discharge. 3. Discharge per medicine. 4. Return to GI office in 1 week for reevaluation. Assessment and plan of care discussed with Dr. Morton
[2016-08-25] MEDS: LACTULOSE 20 GM/30 ML CUP PO SCH (10:04)
[2016-08-25] MEDS: DOCUSATE ORAL SOLN 100 MG/10 ML CUP PO SCH (10:05)
[2016-08-25] MEDS: CITALOPRAM HYDROBROMIDE 20 MG TAB PO SCH (10:05)
[2016-08-25] MEDS: CARVEDILOL 3.125 MG TAB PO SCH (10:05)
[2016-08-25] MEDS: amLODIPine 5 MG TAB PO SCH (10:05)
[2016-08-25 11:03] LABS: Manual Review Performed
[2016-08-25 11:06] LABS: Target Cells Present
[2016-08-25] MEDS: ONDANSETRON 4 MG/2 ML VIAL IVP PRN (11:21)
[2016-08-25 13:45] VITALS: BMI 23.6
[2016-08-25 14:40] VITALS: BP 125/79
[2016-08-25 17:18] VITALS: PULSE 75
--- NOTE | 2016-08-25 19:59 | P.DS ---
Providers Date of admission: 08/19/16 20:00 Attending physician: Luli Chiu Consults: 08/22/16 09:10 Consult Physician Stat Consulting Provider: Leo Garcia Reason/Comments: ICU management Do you want consulting provider notified?: Yes Primary care physician: Mika Farias [facility] Course: This is a 85-year-old female with advanced dementia that was triaged ICU after noting to have a large emesis with clots and bright red blood. Patient apparently was using NSAIDs for chronic pain control in the past. Prograf patient was slightly hypotensive on 08/22/2016. Patient was given 1 unit of PRBC and was given IV fluid boluses and thereafter triaged ICU for ongoing care. Patient denies having any additional complaints at this time. On 08/23/2016 Patient's daughter was at bedside. She denies having any additional complaints. Does state to have pain on deep palpation of her epigastric region. 2016 No new overnight events are reported. No bloody bowel movements are reported no episodes of emesis are reported. Day of discharge Was doing well denies any complaints - Exam Physical exam Gen. appearance alert to self Neck is supple no JVD Lungs good air entry clear to auscultation no rhonchi or wheezing Heart S1-S2 heard regular rate and rhythm no murmurs appreciated Abdomen is soft nontender no organomegaly bowel sounds are intact Neurologically cranial nerves II-12 grossly intact no focal motor or sensory deficits noted Skin no abnormalities appreciated - Labs CBC & Chem 7: 08/24/16 09:10 08/24/16 09:10 Labs: Abnormal Lab Results - Last 24 Hours (Table) 08/24/16 08/24/16 Range/Units 09:10 09:10 RBC 2.81 L (3.80-5.40) m/uL Hgb 7.3 L (11.4-16.0) gm/dL Hct 23.9 L (34.0-46.0) % MCHC 30.7 L (31.0-37.0) g/dL RDW 17.1 H (11.5-15.5) % Neutrophils # 7.9 H (1.3-7.7) k/uL Chloride 108 H (98-107) mmol/L Assessment and Plan Plan: #1 acute blood loss anemia that is stable and improved. #2 large duodenal bulb ulcer #3 advanced dementia #4 CAD #5 hypertension #6 osteoarthritis #7 mild thrombocytosis #8 CK D stage III with an acute component which is improved without underlying ATN Follow up with GI PPI therapy Avoid NSAID Follow up CBC in a week Discussed with Pt's . Plan - Discharge Summary New Discharge Prescriptions: ALPRAZolam [Xanax] 0.25 mg PO DAILY #30 tab Discharge Medication List Citalopram Hydrobromide [CeleXA] 20 mg PO DAILY 11/04/15 [History] QUEtiapine [SEROquel] 25 mg PO HS #0 11/05/15 [Rx] HYDROcodone/APAP 5-325MG [[place] 5-325] 1 tab PO TID PRN 06/22/16 [History] Lisinopril 40 mg PO DAILY 06/22/16 [History] Melatonin 3 mg PO HS #1 tablet 06/24/16 [Rx] Carvedilol [Coreg] 3.125 mg PO DAILY 07/13/16 [History] Lactulose 10 gm PO DAILY 07/13/16 [History] Cholecalciferol [Vitamin D3] 2,000 unit PO DAILY 08/19/16 [History] amLODIPine [Norvasc] 2.5 mg PO DAILY 08/19/16 [History] traZODone HCL 50 mg PO HS 08/19/16 [History] ALPRAZolam [Xanax] 0.25 mg PO DAILY #30 tab 08/25/16 [Rx] Pantoprazole [Protonix] 40 mg PO AC-BRKFST tablet. 08/25/16 [Rx] Follow up Appointment(s)/Referral(s): Mika Farias MD [Primary Care Provider] - 1 Week (Office currently closed, please call for appointment.) Jovi Valente MD [STAFF PHYSICIAN] - 1 Week (Office closed, please call for appointment. ) Patient Instructions/Handouts: Anemia (DC) Activity/Diet/Wound Care/Special Instructions: No NSAIDS Soft diet Activity as tolerated, fall precautions Discharge Disposition: HOME SELF-CARE
[2016-08-26] MEDS ORDERED: PANTOPRAZOLE 40 MG TABLET PO SCH (07:30)
== END 2016-08-25 17:20 | disposition home or self-care (01) | DRG 384 ==
LOC: EC 15:21 → OBSVTOIN 20:00 → 5MS5E 20:00 → 6ICU 08-22 08:52 → 4MS4W 08-23 19:00
PROVIDERS: ADMIT Internal Medicine; ATTEND Internal Medicine
PROC: 30233N1 Transfusion of Nonautologous Red Blood Cells into Peripheral Vein, Percutaneous Approach (ICD-10-PCS; principal; 2016-08-22)
PROC: 0DB68ZX Excision of Stomach, Via Natural or Artificial Opening Endoscopic, Diagnostic (ICD-10-PCS; 2016-08-23)
DX: K26.3 Acute duodenal ulcer without hemorrhage or perforation (principal); N17.9 Acute kidney failure, unspecified; E87.2 Acidosis; J98.11 Atelectasis; D62 Acute posthemorrhagic anemia; I95.9 Hypotension, unspecified; E87.5 Hyperkalemia; E86.0 Dehydration; F03.90 Unspecified dementia, unspecified severity, without behavioral disturbance, psychotic disturbance, mood disturbance, and anxiety; N18.3 Chronic kidney disease, stage 3 (moderate); K29.81 Duodenitis with bleeding; D75.89 Other specified diseases of blood and blood-forming organs; D50.9 Iron deficiency anemia, unspecified; D72.829 Elevated white blood cell count, unspecified; F32.9 Major depressive disorder, single episode, unspecified; F41.9 Anxiety disorder, unspecified; I12.9 Hypertensive chronic kidney disease with stage 1 through stage 4 chronic kidney disease, or unspecified chronic kidney disease; I25.10 Atherosclerotic heart disease of native coronary artery without angina pectoris; K29.70 Gastritis, unspecified, without bleeding; K44.9 Diaphragmatic hernia without obstruction or gangrene; K57.30 Diverticulosis of large intestine without perforation or abscess without bleeding; K59.09 Other constipation; T39.395A Adverse effect of other nonsteroidal anti-inflammatory drugs [NSAID], initial encounter; G89.29 Other chronic pain; M25.512 Pain in left shoulder; M19.042 Primary osteoarthritis, left hand; M19.041 Primary osteoarthritis, right hand; R32 Unspecified urinary incontinence; Z79.899 Other long term (current) drug therapy; Z88.1 Allergy status to other antibiotic agents; Z88.0 Allergy status to penicillin; Z88.8 Allergy status to other drugs, medicaments and biological substances; Z82.49 Family history of ischemic heart disease and other diseases of the circulatory system
CPT/HCPCS: 36415; 43239; 71010; 71020; 74176; 80048; 80053; 81001; 82272; 83540; 83550; 83605; 83690; 83735; 84100; 84484; 85025; 85027; 85610; 86850; 86900; 86901; 86920; 88305; 88342; 93005; 96361; 96365; 96368; 96375; 99285

== ENCOUNTER 2016-08-27 06:08 | Inpatient (IN) | payer MEDICARE, BC ==
[2016-08-27] MEDS ORDERED: ONDANSETRON 4 MG/2 ML VIAL IVP STA (06:18)
[2016-08-27] MEDS ORDERED: PANTOPRAZOLE 40 MG/10 ML VIAL IVP STA (06:18)
[2016-08-27] MEDS ORDERED: SODIUM CHLORIDE 0.9% 1,000 ML IV STA (06:18)
--- NOTE | 2016-08-27 06:32 | ED ---
General Adult HPI - General Source: EMS, RN notes reviewed, old records reviewed Mode of arrival: EMS Limitations: altered mental status, physical limitation <Esequiel Negrete - Last Filed: 08/27/16 06:32> <Hollis George - Last Filed: 08/27/16 08:33> - General Chief complaint: GI Bleed Stated complaint: Rectal Bleed Time Seen by Provider: 08/27/16 06:18 - History of Present Illness Initial comments: This is a 85-year-old female here for evaluation of GI bleed. Patient brought in by EMS louise Pagan. Per EMS patient is a DO NOT RESUSCITATE. Patient is complaining of abdominal pain. (Esequiel Negrete) - Related Data Home Medications Medication Instructions Recorded Confirmed Citalopram Hydrobromide [CeleXA] 20 mg PO DAILY 11/04/15 08/19/16 HYDROcodone/APAP 5-325MG [[place] 1 tab PO TID PRN 06/22/16 08/19/16 5-325] Lisinopril 40 mg PO DAILY 06/22/16 08/19/16 Carvedilol [Coreg] 3.125 mg PO DAILY 07/13/16 08/19/16 Lactulose 10 gm PO DAILY 07/13/16 08/19/16 Cholecalciferol [Vitamin D3] 2,000 unit PO DAILY 08/19/16 08/19/16 amLODIPine [Norvasc] 2.5 mg PO DAILY 08/19/16 08/19/16 traZODone HCL 50 mg PO HS 08/19/16 08/19/16 Previous Rx's Medication Instructions Recorded QUEtiapine [SEROquel] 25 mg PO HS #0 11/05/15 Melatonin 3 mg PO HS #1 tablet 06/24/16 ALPRAZolam [Xanax] 0.25 mg PO DAILY #30 tab 08/25/16 Pantoprazole [Protonix] 40 mg PO AC-BRKFST tablet. 08/25/16 Allergies Allergy/AdvReac Type Severity Reaction Status Date / Time erythromycin base Allergy Rash/Hives Verified 08/19/16 16:03 hydrochlorothiazide Allergy Rapid Verified 08/19/16 16:03 Heart Rate ibandronate sodium Allergy Dyspnea Verified 08/19/16 16:03 [From [facility]] Penicillins Allergy Rash/Hives Verified 08/19/16 16:03 Review of Systems ROS Other: All systems not noted in ROS Statement are negative. <CadenEsequiel B - Last Filed: 08/27/16 06:32> ROS Other: All systems not noted in ROS Statement are negative. <ArielHollis - Last Filed: 08/27/16 08:33> ROS Statement: Those systems with pertinent positive or pertinent negative responses have been documented in the HPI. Past Medical History Past Medical History: Coronary Artery Disease (CAD), Dementia, Hypertension, Osteoarthritis (OA) Additional Past Medical History / Comment(s): constipation, STRESS TEST 11-04-15 ,ARTHRITIS IN HANDS, GAIT PROBLEMS/HAS HAD FALLS WHERE SHE HAS FX C1, RT SHOULDER, NOSE(NO SX DONE ON ANY OF THEM), UNABLE TO OBTAIN ANSWERS FROM PT FOR DEPRESSION RISK SCREEN BUT FAMILY STATED SHE MAY HAVE SOME MILD /D/T HER DEMENTIA. History of Any Multi-Drug Resistant Organisms: None Reported Past Surgical History: Orthopedic Surgery Additional Past Surgical History / Comment(s): rt knee Past Anesthesia/Blood Transfusion Reactions: No Reported Reaction Past Psychological History: Anxiety Smoking Status: Never smoker Past Alcohol Use History: None Reported Past Drug Use History: None Reported - Past Family History Mother Family Medical History: Congestive Heart Failure (CHF), Myocardial Infarction ( [place]) Father Family Medical History: Cancer <CadenEsequiel Jose - Last Filed: 08/27/16 06:32> General Exam Limitations: altered mental status, physical limitation General appearance: alert, in no apparent distress, anxious Head exam: Present: atraumatic, normocephalic, normal inspection Eye exam: Present: normal appearance, PERRL, EOMI. Absent: scleral icterus, conjunctival injection, periorbital swelling ENT exam: Present: normal exam, mucous membranes moist Neck exam: Present: normal inspection. Absent: tenderness, meningismus, lymphadenopathy Respiratory exam: Present: normal lung sounds bilaterally. Absent: respiratory distress, wheezes, rales, rhonchi, stridor Cardiovascular Exam: Present: regular rate, normal rhythm, normal heart sounds. Absent: systolic murmur, diastolic murmur, rubs, gallop, clicks GI/Abdominal exam: Present: soft, normal bowel sounds. Absent: distended, tenderness, guarding, rebound, rigid Extremities exam: Present: normal inspection, full ROM, normal capillary refill. Absent: tenderness, pedal edema, joint swelling, calf tenderness Back exam: Present: normal inspection Neurological exam: Present: alert, oriented X3, CN II-XII intact Psychiatric exam: Present: normal affect, normal mood Skin exam: Present: warm, dry, intact, normal color. Absent: rash <Esequiel Negrete - Last Filed: 08/27/16 06:32> Medical Decision Making <Esequiel Negrete - Last Filed: 08/27/16 06:32> - Lab Data Result diagrams: 08/27/16 06:47 08/27/16 06:47 <Hollis George - Last Filed: 08/27/16 08:33> - Medical Decision Making Patient reevaluated by myself, Dr. George. Patient resting comfortably in bed. Patient does have maroon stool follow older. Case discussed with Dr. montalvo, who will admit for Dr. yoo (Hollis George) - Lab Data Lab Results 08/27/16 08/27/16 08/27/16 Range/Units 06:47 06:47 06:47 WBC 16.2 H (3.8-10.6) k/uL RBC 2.09 L (3.80-5.40) m/uL Hgb 5.4 L* D (11.4-16.0) gm/dL Hct 18.0 L* (34.0-46.0) % MCV 86.1 (80.0-100.0) fL MCH 26.0 (25.0-35.0) pg MCHC 30.2 L (31.0-37.0) g/dL RDW 17.9 H (11.5-15.5) % Plt Count 419 (150-450) k/uL Neutrophils % 82 % Lymphocytes % 13 % Monocytes % 4 % Eosinophils % 1 % Basophils % 0 % Neutrophils # 13.3 H (1.3-7.7) k/uL Lymphocytes # 2.1 (1.0-4.8) k/uL Monocytes # 0.7 (0-1.0) k/uL Eosinophils # 0.1 (0-0.7) k/uL Basophils # 0.1 (0-0.2) k/uL Hypochromasia Marked Anisocytosis Slight PT 11.4 (9.0-12.0) sec INR 1.1 (<1.1) APTT 20.6 L (22.0-30.0) sec Sodium 140 (137-145) mmol/L Potassium 3.8 (3.5-5.1) mmol/L Chloride 108 H (98-107) mmol/L Carbon Dioxide 22 (22-30) mmol/L Anion Gap 10 mmol/L BUN 62 H (7-17) mg/dL Creatinine 1.49 H (0.52-1.04) mg/dL Est GFR (MDRD) Af Amer 40 (>60 ml/min/1.73 sqM) Est GFR (MDRD) Non-Af 33 (>60 ml/min/1.73 sqM) Glucose 119 H (74-99) mg/dL Calcium 8.1 L (8.4-10.2) mg/dL Magnesium 1.5 L (1.6-2.3) mg/dL Total Bilirubin 0.3 (0.2-1.3) mg/dL AST 12 L (14-36) U/L ALT 24 (9-52) U/L Alkaline Phosphatase 54 (38-126) U/L Total Creatine Kinase (30-135) U/L CK-MB (CK-2) (0.0-2.4) ng/mL CK-MB (CK-2) Rel Index Troponin I (0.000-0.034) ng/mL Total Protein 4.9 L (6.3-8.2) g/dL Albumin 2.4 L (3.5-5.0) g/dL Lipase 194 (23-300) U/L Blood Type Blood Type Recheck Antibody Screen Crossmatch Spec Expiration Date 08/27/16 08/27/16 Range/Units 06:47 06:47 WBC (3.8-10.6) k/uL RBC (3.80-5.40) m/uL Hgb (11.4-16.0) gm/dL Hct (34.0-46.0) % MCV (80.0-100.0) fL MCH (25.0-35.0) pg MCHC (31.0-37.0) g/dL RDW (11.5-15.5) % Plt Count (150-450) k/uL Neutrophils % % Lymphocytes % % Monocytes % % Eosinophils % % Basophils % % Neutrophils # (1.3-7.7) k/uL Lymphocytes # (1.0-4.8) k/uL Monocytes # (0-1.0) k/uL Eosinophils # (0-0.7) k/uL Basophils # (0-0.2) k/uL Hypochromasia Anisocytosis PT (9.0-12.0) sec INR (<1.1) APTT (22.0-30.0) sec Sodium (137-145) mmol/L Potassium (3.5-5.1) mmol/L Chloride (98-107) mmol/L Carbon Dioxide (22-30) mmol/L Anion Gap mmol/L BUN (7-17) mg/dL Creatinine (0.52-1.04) mg/dL Est GFR (MDRD) Af Amer (>60 ml/min/1.73 sqM) Est GFR (MDRD) Non-Af (>60 ml/min/1.73 sqM) Glucose (74-99) mg/dL Calcium (8.4-10.2) mg/dL Magnesium (1.6-2.3) mg/dL Total Bilirubin (0.2-1.3) mg/dL AST (14-36) U/L ALT (9-52) U/L Alkaline Phosphatase (38-126) U/L Total Creatine Kinase 64 (30-135) U/L CK-MB (CK-2) 0.6 (0.0-2.4) ng/mL CK-MB (CK-2) Rel Index 0.9 Troponin I 0.025 (0.000-0.034) ng/mL Total Protein (6.3-8.2) g/dL Albumin (3.5-5.0) g/dL Lipase (23-300) U/L Blood Type O Positive Blood Type Recheck No Antibody Screen NEGATIVE Crossmatch See Detail Spec Expiration Date 08/30/2016 - 3732 Disposition <Esequiel Negrete - Last Filed: 08/27/16 06:32> <Hollis George - Last Filed: 08/27/16 08:33> Clinical Impression: Acute GI bleeding Disposition: ADMITTED IP TO THIS HOSP
[2016-08-27 07:22] LABS: Calcium 8.1 mg/dL (8.4-10.2); Magnesium 1.5 mg/dL (1.6-2.3); Potassium 3.8 mmol/L (3.5-5.1); Total Bilirubin 0.3 mg/dL (0.2-1.3); Total Protein 4.9 g/dL (6.3-8.2)
[2016-08-27 07:33] LABS: INR 1.1 (<1.1); Prothrombin Time 11.4 sec (9.0-12.0)
[2016-08-27 07:37] LABS: Partial Thromboplastin Time 20.6 sec (22.0-30.0)
[2016-08-27 07:50] LABS: Anisocytosis Slight; Basophils # (A) 0.1 k/uL (0-0.2); Basophils % (A) 0 %; CH 25.9; CHCM 30.1; Eosinophils # (A) 0.1 k/uL (0-0.7); Eosinophils % (A) 1 %; HDW 3.38; Hypochromasia Marked; Luc # (Auto) 0.16; Luc % (Auto) 1; Lymphocytes # (A) 2.1 k/uL (1.0-4.8); Lymphocytes % (A) 13 %; MCHC 30.2 g/dL (31.0-37.0); MCV 86.1 fL (80.0-100.0); Mean Platelet Volume 7.4; Monocytes # (A) 0.7 k/uL (0-1.0); Monocytes % (A) 4 %; Neutrophils # (A) 13.3 k/uL (1.3-7.7); Neutrophils % (A) 82 %; RBC 2.09 m/uL (3.80-5.40); RDW 17.9 % (11.5-15.5); WBC 16.2 k/uL (3.8-10.6); WBC (Perox) 17.73
[2016-08-27 07:52] LABS: HGB 5.4 gm/dL (11.4-16.0)
[2016-08-27 08:01] LABS: Creatine Kinase MB 0.6 ng/mL (0.0-2.4); Troponin I 0.025 ng/mL (0.000-0.034)
[2016-08-27] MEDS ORDERED: NALOXONE 0.4 MG/ML 1 ML VIAL IV PRN (08:33)
[2016-08-27] MEDS: SODIUM CHLORIDE 0.9% 1,000 ML IV SCH ×2 (10:20→22:30)
[2016-08-27] MEDS: MORPHINE SULFATE 2 MG/ML SYRINGE IVP PRN ×2 (15:26→23:45)
--- NOTE | 2016-08-27 16:23 | P.HPIM ---
History of Present Illness H&P Date: 08/27/16 Chief Complaint: bleeding 85-year-old female that was recently in the hospital with the anemia. Patient was having multiple episodes of hematemesis. Patient underwent a upper endoscopy at that time was noted to have a large duodenal bulb ulcer. The pathology report of the ulcer is negative for H. pylori. He was thought secondary to NSAID use for pain. Patient was started on a PPI therapy as well as monitor for 48 hours in the hospital. And was discharged back to assisted living facility. Patient comes back in the hospital within 48 hours with multiple episodes of black tarry stools, which show a hemoglobin of 5.4 on admission. Patient received 2 units of PRBC at the time of my examination patient was more drowsy. However thereafter patient apparently was awake and was complaining of abdominal pain and epigastric region. Patient does have advanced dementia most of the history is obtained from chart review and from the family were at bedside. Review of Systems All systems: negative Past Medical History Past Medical History: Coronary Artery Disease (CAD), Dementia, Hypertension, Osteoarthritis (OA) Additional Past Medical History / Comment(s): constipation, STRESS TEST 11-04-15 ,ARTHRITIS IN HANDS, GAIT PROBLEMS/HAS HAD FALLS WHERE SHE HAS FX C1, RT SHOULDER, NOSE(NO SX DONE ON ANY OF THEM), UNABLE TO OBTAIN ANSWERS FROM PT FOR DEPRESSION RISK SCREEN BUT FAMILY STATED SHE MAY HAVE SOME MILD /D/T HER DEMENTIA. History of Any Multi-Drug Resistant Organisms: None Reported Past Surgical History: Orthopedic Surgery Additional Past Surgical History / Comment(s): rt knee Past Anesthesia/Blood Transfusion Reactions: No Reported Reaction Past Psychological History: Anxiety Smoking Status: Never smoker Past Alcohol Use History: None Reported Past Drug Use History: None Reported - Past Family History Mother Family Medical History: Congestive Heart Failure (CHF), Myocardial Infarction ( [place]) Father Family Medical History: Cancer Medications and Allergies Home Medications Medication Instructions Recorded Confirmed Type Citalopram Hydrobromide [CeleXA] 20 mg PO DAILY 11/04/15 08/27/16 History HYDROcodone/APAP 5-325MG [[place] 1 tab PO TID PRN 06/22/16 08/27/16 History 5-325] Lisinopril 40 mg PO DAILY 06/22/16 08/27/16 History Carvedilol [Coreg] 3.125 mg PO DAILY 07/13/16 08/27/16 History Lactulose 10 gm PO DAILY 07/13/16 08/27/16 History Cholecalciferol [Vitamin D3] 2,000 unit PO DAILY 08/19/16 08/27/16 History amLODIPine [Norvasc] 2.5 mg PO DAILY 08/19/16 08/27/16 History traZODone HCL 50 mg PO HS 08/19/16 08/27/16 History ALPRAZolam [Xanax] 0.25 mg PO DAILY 08/27/16 08/27/16 History Allergies Allergy/AdvReac Type Severity Reaction Status Date / Time erythromycin base Allergy Rash/Hives Verified 08/19/16 16:03 hydrochlorothiazide Allergy Rapid Verified 08/19/16 16:03 Heart Rate ibandronate sodium Allergy Dyspnea Verified 08/19/16 16:03 [From [facility]] Penicillins Allergy Rash/Hives Verified 08/19/16 16:03 Physical Exam Vitals: Vital Signs Temp Pulse Pulse Resp BP BP Pulse Ox 08/27/16 15:46 85 14 08/27/16 15:45 98.3 F 85 14 106/59 95 08/27/16 14:50 98.3 F 85 14 106/59 08/27/16 14:16 96.7 F L 86 14 103/59 99 08/27/16 14:10 97.4 F L 84 14 98/56 98 08/27/16 12:01 97.0 F L 82 143/60 97 08/27/16 11:25 82 12 08/27/16 11:24 97.0 F L 82 12 109/57 98 08/27/16 10:59 97 F L 73 12 104/63 97 08/27/16 10:52 97.0 F L 79 12 92/58 08/27/16 10:22 98.1 F 84 15 82/43 98 08/27/16 10:12 97.8 F 82 14 121/59 98 08/27/16 09:48 75 14 108/62 97 08/27/16 09:04 80 14 110/62 97 08/27/16 08:34 79 15 111/56 97 Intake and Output 08/27/16 08/27/16 08/27/16 06:59 14:59 22:59 Intake Total 310 Balance 310 Intake: Blood Product 310 Rc As-1 Unit 0 [id number] Rc Pheresis As-3 Unit 310 [id number] Other: Weight 49.895 kg 49.895 kg Patient Weight 08/28/16 06:59 Weight 49.895 kg Gen. appearance alert to self Lungs good air entry clear to auscultation no rhonchi or wheezing Heart S1-S2 are regular rate and rhythm no murmurs appreciated Abdomen is soft no grimacing during my examination. Lower extremity is no edema noted Neuro is deferred due to mental status. Results CBC & Chem 7: 08/27/16 06:47 08/27/16 06:47 Assessment and Plan Plan: #1 acute blood loss anemia secondary to an upper GI bleed likely #2 acute kidney injury secondary to #1 and prerenal azotemia #3 advanced dementia #4 leukocytosis , reactive #5 history of hypertension #6 acute metabolic encephalopathy likely secondary to #1 Plan GI consultation. IV Protonix 40 mg twice a day. Patient does not have H. pylori infection. Patient will be supported with PRBC transmission. Repeat hemoglobin level. Discussed the case with the family. Patient's CODE STATUS is DO NOT RESUSCITATE. Hemodynamically stable
[2016-08-27] MEDS ORDERED: SODIUM CHLORIDE 0.9% 1,000 ML IV ONE ×2 (20:13→21:29)
[2016-08-27] MEDS ORDERED: LORazepam 2 MG/ML SYRINGE IV PRN (20:13)
[2016-08-27 20:38] LABS: Glucose,Whole Blood 104 mg/dL (75-99)
[2016-08-27 20:47] LABS: Anisocytosis Slight; CH 28.4; CHCM 31.2; HCT 25.1 % (34.0-46.0); HDW 3.75; Hypochromasia Marked; MCH 29.3 pg (25.0-35.0); MCHC 32.1 g/dL (31.0-37.0); MCV 91.3 fL (80.0-100.0); Mean Platelet Volume 8.8; Poikilocytosis Slight; RBC 2.75 m/uL (3.80-5.40); RDW 16.9 % (11.5-15.5); WBC 18.2 k/uL (3.8-10.6)
[2016-08-27] MEDS ORDERED: MELATONIN 1 MG TAB PO SCH (21:00)
[2016-08-27 21:09] LABS: HGB 8.1 gm/dL (11.4-16.0)
--- NOTE | 2016-08-27 22:10 | P.PN ---
Progress Note - Text Arterial line insertion procedure note: Indication for the procedure: Hemodynamic monitoring The procedure was explained to the patient and as the patient was not consentable, the procedure was done as an emergency requirement. The left arm was extended on the bedside table and wrist slightly hyperextended. The front of the wrist was cleaned with ChloraPrep and 2 mL of 1 % lidocaine was infiltrated after palpating the radial artery and making sure the collateral circulation is intact. Then a 20-gauge arrow arterial line catheter was inserted with inbuilt guidewire and after it red flash of blood seen through the the guidewire was advanced and the catheter was threaded over the guidewire. The catheter was secured in place by sutures and a Tegaderm dressing was applied. Patient tolerated the procedure very well with no apparent complications noted.
--- NOTE | 2016-08-27 22:17 | P.GSCN ---
History of Present Illness Consult date: 08/27/16 Reason for Consult: GI bleeding Requesting physician: Ricky Richards History of present illness: 85 years old female with dementia presenting with GI bleed. Recent episode of GI bleed followed by EGD which showed a large duodenal bulb ulcer without any active bleeding. The patient was found to have multiple dark bloody bowel movement. This morning hemoglobin was 5.4. She received 2 units of packed RBC and repeat hemoglobin was 8. She then had episode of bloody emesis and bowel movement having blood clots . Nasogastric tube was inserted which showed fresh blood. Patient has dementia. She is not alert and oriented to time place and person. She is awake, appears comfortable, denies any abdominal pain. She had a fall last March and sustained a C-spine and shoulder injury Review of Systems Constitutional: Denies fever, weight loss or loss of appetite Cardiovascular: Denies chest pain, palpitations, dizziness, shortness of breath. Respiratory: No cough or shortness of breath Gastrointestinal: As stated in history of present illness. Genitourinary: Elder catheter in place Neurologic: No seizures, denies weakness in upper or lower extremities Musculoskeletal: Occasional left knee pain. Psychiatry: Has dementia Past Medical History Past Medical History: Coronary Artery Disease (CAD), Dementia, Hypertension, Osteoarthritis (OA) Additional Past Medical History / Comment(s): constipation, STRESS TEST 11-04-15 ,ARTHRITIS IN HANDS, GAIT PROBLEMS/HAS HAD FALLS WHERE SHE HAS FX C1, RT SHOULDER, NOSE(NO SX DONE ON ANY OF THEM), UNABLE TO OBTAIN ANSWERS FROM PT FOR DEPRESSION RISK SCREEN BUT FAMILY STATED SHE MAY HAVE SOME MILD /D/T HER DEMENTIA. History of Any Multi-Drug Resistant Organisms: None Reported Past Surgical History: Orthopedic Surgery Additional Past Surgical History / Comment(s): rt knee Past Anesthesia/Blood Transfusion Reactions: No Reported Reaction Past Psychological History: Anxiety Smoking Status: Never smoker Past Alcohol Use History: None Reported Past Drug Use History: None Reported - Past Family History Mother Family Medical History: Congestive Heart Failure (CHF), Myocardial Infarction ( [place]) Father Family Medical History: Cancer Medications and Allergies Home Medications Medication Instructions Recorded Confirmed Type Citalopram Hydrobromide [CeleXA] 20 mg PO DAILY 11/04/15 08/27/16 History HYDROcodone/APAP 5-325MG [[place] 1 tab PO TID PRN 06/22/16 08/27/16 History 5-325] Lisinopril 40 mg PO DAILY 06/22/16 08/27/16 History Carvedilol [Coreg] 3.125 mg PO DAILY 07/13/16 08/27/16 History Lactulose 10 gm PO DAILY 07/13/16 08/27/16 History Cholecalciferol [Vitamin D3] 2,000 unit PO DAILY 08/19/16 08/27/16 History amLODIPine [Norvasc] 2.5 mg PO DAILY 08/19/16 08/27/16 History traZODone HCL 50 mg PO HS 08/19/16 08/27/16 History ALPRAZolam [Xanax] 0.25 mg PO DAILY 08/27/16 08/27/16 History Allergies Allergy/AdvReac Type Severity Reaction Status Date / Time erythromycin base Allergy Rash/Hives Verified 08/19/16 16:03 hydrochlorothiazide Allergy Rapid Verified 08/19/16 16:03 Heart Rate ibandronate sodium Allergy Dyspnea Verified 08/19/16 16:03 [From [facility]] Penicillins Allergy Rash/Hives Verified 08/19/16 16:03 Surgical - Exam Vital Signs Temp Pulse Resp BP Pulse Ox 96.8 F L 83 16 119/51 98 08/27/16 06:24 08/27/16 06:24 08/27/16 06:24 08/27/16 06:24 08/27/16 06:24 General: Patient is not alert and oriented to time, place and person. HEENT: Pallor present Chest: Bilateral equal breath sounds present. Cardiovascular: Regular rate and rhythm. Abdomen: Soft, nontender, nondistended. No abdominal tenderness Neurologic: Obeys command. Responds to questions. Confusion Results - Labs 08/27/16 07:34 08/27/16 06:47 Abnormal Lab Results - Last 24 Hours (Table) 08/27/16 Range/Units 20:20 POC Glucose (mg/dL) 104 H (75-99) mg/dL Assessment and Plan (1) Anemia Status: Acute Plan: 1. Repeat CBC stat 2. Transfuse 2units PRBC. Hold 2 more units. 0.9Nacl 1000ml IV bolus 3. Nasogastric tube to LIWS 4. Indwelling Elder catheter 5. A -line in place 6. GI consulted . Dr. Morton following. Possible EGD with intervention. 7. Patient is no code. She has poor functional status and is a poor surgical candidate. In depth discussion with the patient's son, daughter and for 30 minutes . Patient may need exploratory laparotomy in case bleeding continues or rndoscopic intervention fails. Her prognosis is poor . Family does not want CPR and do not desire surgical intervention at this time. 8. Patient examined in ICU. Critical time spent > 31 min.
[2016-08-27] MEDS: MELATONIN 3 MG TABLET PO SCH (23:58)
[2016-08-27] MEDS: traZODone HCL 50 MG TAB PO SCH (23:58)
[2016-08-27] MEDS: QUEtiapine 25 MG TAB PO SCH (23:58)
[2016-08-28 00:03] LABS: Anisocytosis Slight; CHCM 32.7; HDW 3.83; Hypochromasia Slight; MCH 28.4 pg (25.0-35.0); MCHC 31.9 g/dL (31.0-37.0); MCV 88.9 fL (80.0-100.0); Mean Platelet Volume 8.5; Poikilocytosis Slight; RBC 2.05 m/uL (3.80-5.40); RDW 17.2 % (11.5-15.5); WBC 18.3 k/uL (3.8-10.6)
[2016-08-28 00:06] LABS: HCT 18.2 % (34.0-46.0); HGB 5.8 gm/dL (11.4-16.0)
[2016-08-28] MEDS: MORPHINE SULFATE 2 MG/ML SYRINGE IVP PRN (05:30)
[2016-08-28 07:21] LABS: Anisocytosis Slight; Basophils # (A) 0.1 k/uL (0-0.2); Basophils % (A) 0 %; CH 29.8; CHCM 33.1; Eosinophils # (A) 0.2 k/uL (0-0.7); Eosinophils % (A) 1 %; HCT 27.2 % (34.0-46.0); HDW 3.77; Hypochromasia Slight; Luc # (Auto) 0.13; Luc % (Auto) 1; Lymphocytes # (A) 2.1 k/uL (1.0-4.8); Lymphocytes % (A) 12 %; MCH 29.2 pg (25.0-35.0); MCHC 32.2 g/dL (31.0-37.0); MCV 90.5 fL (80.0-100.0); Mean Platelet Volume 8.7; Monocytes # (A) 0.7 k/uL (0-1.0); Monocytes % (A) 4 %; Neutrophils # (A) 14.5 k/uL (1.3-7.7); Neutrophils % (A) 83 %; Poikilocytosis Slight; RDW 16.1 % (11.5-15.5); WBC 17.6 k/uL (3.8-10.6); WBC (Perox) 17.44
[2016-08-28 07:27] LABS: ALT 23 U/L (9-52); AST 15 U/L (14-36); Alkaline Phosphatase 54 U/L (38-126); Anion Gap 9 mmol/L; Blood Urea Nitrogen 38 mg/dL (7-17); Calcium 7.6 mg/dL (8.4-10.2); Carbon Dioxide 20 mmol/L (22-30); Chloride 113 mmol/L (98-107); Glucose 93 mg/dL (74-99); Non-African American GFR(MDRD) 57 (>60 ml/min/1.73 sqM); Potassium 3.9 mmol/L (3.5-5.1); Sodium 142 mmol/L (137-145); Total Bilirubin 0.8 mg/dL (0.2-1.3); Total Protein 4.8 g/dL (6.3-8.2)
[2016-08-28 07:28] LABS: Magnesium 1.4 mg/dL (1.6-2.3)
[2016-08-28 07:37] LABS: INR 1.1 (<1.1); Prothrombin Time 10.7 sec (9.0-12.0)
[2016-08-28 07:42] LABS: Partial Thromboplastin Time 21.1 sec (22.0-30.0)
[2016-08-28 07:49] LABS: HGB 8.7 gm/dL (11.4-16.0)
[2016-08-28] MEDS: CARVEDILOL 3.125 MG TAB PO SCH (08:34)
[2016-08-28] MEDS: LACTULOSE 20 GM/30 ML CUP PO SCH (08:35)
[2016-08-28] MEDS: PANTOPRAZOLE 40 MG/10 ML VIAL IV SCH ×3 (08:35→20:48)
[2016-08-28] MEDS: CITALOPRAM HYDROBROMIDE 20 MG TAB PO SCH (08:36)
[2016-08-28] MEDS: SODIUM CHLORIDE 0.9% 1,000 ML IV SCH (08:37)
[2016-08-28] MEDS: ALPRAZolam 0.25 MG TAB PO SCH (08:37)
--- NOTE | 2016-08-28 10:22 | P.CNPUL ---
History of Present Illness Consult date: 08/28/16 Requesting physician: Ricky Richards Reason for consult: other (Critical care management) Chief complaint: GI bleed History of present illness: This is an 85-year-old female patient who is followed by Dr. Farias as her primary care provider. She has a history of advanced dementia, coronary artery disease, hypertension, chronic kidney disease stage III, gait problems with frequent falls, arthritis. She was recently discharged from here on 08/25/2016 following a episode of gastrointestinal bleeding. An EGD did reveal a large duodenal bulb ulcer. She had been taking NSAIDs in the outpatient setting for chronic pain. She presented here on 08/27/2016 with another episode of maroon stools as well as bright red emesis. Her hemoglobin initial hemoglobin was 5.4 She is status post 4 units of packed red blood cell infusions and 2 L of IV fluid resuscitation. She is seen here today in consultation in the intensive care unit. Her current hemoglobin is 8.7. She has a 0.9 normal saline at 90 mL per hour. She is maintaining O2 saturations in the 90s on 2 L/m per nasal cannula. Currently hemodynamically stable, on no pressors. The patient had been seen and evaluated by surgical services. She is a poor candidate. He did have discussion with the and son and daughter at the bedside. Plan is for EGD today per GI services. Review of Systems ROS unobtainable: due to mental status Past Medical History Past Medical History: Coronary Artery Disease (CAD), Dementia, Hypertension, Osteoarthritis (OA) Additional Past Medical History / Comment(s): constipation, STRESS TEST 11-04-15 ,ARTHRITIS IN HANDS, GAIT PROBLEMS/HAS HAD FALLS WHERE SHE HAS FX C1, RT SHOULDER, NOSE(NO SX DONE ON ANY OF THEM), UNABLE TO OBTAIN ANSWERS FROM PT FOR DEPRESSION RISK SCREEN BUT FAMILY STATED SHE MAY HAVE SOME MILD /D/T HER DEMENTIA. History of Any Multi-Drug Resistant Organisms: None Reported Past Surgical History: Orthopedic Surgery Additional Past Surgical History / Comment(s): rt knee Past Anesthesia/Blood Transfusion Reactions: No Reported Reaction Past Psychological History: Anxiety Smoking Status: Never smoker Past Alcohol Use History: None Reported Past Drug Use History: None Reported - Past Family History Mother Family Medical History: Congestive Heart Failure (CHF), Myocardial Infarction ( [place]) Father Family Medical History: Cancer Medications and Allergies Home Medications Medication Instructions Recorded Confirmed Type Citalopram Hydrobromide [CeleXA] 20 mg PO DAILY 11/04/15 08/27/16 History HYDROcodone/APAP 5-325MG [[place] 1 tab PO TID PRN 06/22/16 08/27/16 History 5-325] Lisinopril 40 mg PO DAILY 06/22/16 08/27/16 History Carvedilol [Coreg] 3.125 mg PO DAILY 07/13/16 08/27/16 History Lactulose 10 gm PO DAILY 07/13/16 08/27/16 History Cholecalciferol [Vitamin D3] 2,000 unit PO DAILY 08/19/16 08/27/16 History amLODIPine [Norvasc] 2.5 mg PO DAILY 08/19/16 08/27/16 History traZODone HCL 50 mg PO HS 08/19/16 08/27/16 History ALPRAZolam [Xanax] 0.25 mg PO DAILY 08/27/16 08/27/16 History Allergies Allergy/AdvReac Type Severity Reaction Status Date / Time erythromycin base Allergy Rash/Hives Verified 08/19/16 16:03 hydrochlorothiazide Allergy Rapid Verified 08/19/16 16:03 Heart Rate ibandronate sodium Allergy Dyspnea Verified 08/19/16 16:03 [From [place]] Penicillins Allergy Rash/Hives Verified 08/19/16 16:03 Physical Exam Vitals: Vital Signs Temp Pulse Pulse Resp BP BP Pulse Ox 08/28/16 09:30 94 19 152/88 100 08/28/16 09:00 84 11 L 149/89 100 08/28/16 08:30 85 11 L 149/89 100 08/28/16 08:00 98.5 F 85 17 157/90 100 08/28/16 07:30 82 12 157/90 100 08/28/16 07:00 80 14 99 08/28/16 06:30 85 22 161/92 98 08/28/16 06:00 79 14 96 08/28/16 05:30 80 14 163/90 91 L 08/28/16 05:00 92 26 H 92 L 08/28/16 04:30 98.1 F 82 16 160/90 96 08/28/16 04:00 82 12 95 08/28/16 03:49 98.1 F 82 14 134/77 95 08/28/16 03:30 80 24 134/77 97 08/28/16 03:19 98.0 F 79 12 134/77 95 08/28/16 03:09 98.1 F 85 20 91/77 99 08/28/16 03:00 88 22 93 L 08/28/16 02:54 98.1 F 85 20 78/65 98 08/28/16 02:30 83 12 127/74 92 L 08/28/16 02:00 85 13 100 08/28/16 01:38 98.0 F 85 16 123/76 99 08/28/16 01:30 88 20 90 L 08/28/16 01:15 81 12 99 08/28/16 01:08 98.1 F 82 14 121/75 98 08/28/16 01:00 98.0 F 86 14 94 L 08/28/16 00:58 98.0 F 85 18 108/70 95 08/28/16 00:45 87 17 94 L 08/28/16 00:30 85 10 L 93 L 08/28/16 00:15 90 15 95 08/28/16 00:00 90 16 90 L 08/27/16 23:45 87 24 95 08/27/16 23:30 87 13 91 L 08/27/16 23:15 95 23 91 L 08/27/16 23:00 94 14 95 08/27/16 22:45 90 18 91 L 08/27/16 22:30 90 14 96 08/27/16 22:15 90 22 91 L 08/27/16 22:00 95 16 94 L 08/27/16 21:45 100 24 92 L 08/27/16 21:30 97 13 94 L 08/27/16 21:15 101 H 22 92 L 08/27/16 21:00 103 H 16 92 L 08/27/16 20:45 93 18 61/48 90 L 08/27/16 20:30 98.8 F 95 18 58/39 98 08/27/16 20:00 98.2 F 78 20 121/81 96 08/27/16 17:34 98.6 F 85 16 111/53 99 08/27/16 15:46 85 14 08/27/16 15:45 98.3 F 85 14 106/59 95 08/27/16 14:50 98.3 F 85 14 106/59 08/27/16 14:16 96.7 F L 86 14 103/59 99 08/27/16 14:10 97.4 F L 84 14 98/56 98 08/27/16 12:01 97.0 F L 82 143/60 97 08/27/16 11:25 82 12 08/27/16 11:24 97.0 F L 82 12 109/57 98 08/27/16 10:59 97 F L 73 12 104/63 97 08/27/16 10:52 97.0 F L 79 12 92/58 08/27/16 10:22 98.1 F 84 15 82/43 98 08/27/16 10:12 97.8 F 82 14 121/59 98 Intake and Output 08/27/16 08/28/16 08/28/16 22:59 06:59 14:59 Intake Total 2860 1960 270 Output Total 820 295 Balance 2860 1140 -25 Intake: IV 1999 1340 270 PRBC 620 Sodium Chloride 0.9% 1, 720 270 000 ml @ 90 mls/hr IV . Q11H7M [facility] Rx#:[id number] Sodium Chloride 0.9% 1, 2000 000 ml @ 999 mls/hr IV . Q1H1M ONE Rx#:[id number] Oral 240 Blood Product 620 620 Rc As-1 Unit 310 [id number] Rc Pheresis 2 As3 Unit 310 [id number] Rc Pheresis As-3 Unit 310 [id number] Output: Gastric Drainage 250 Urine 570 295 Other: Voiding Method Indwelling Catheter # Voids 1 # Bowel Movements 1 Weight 49.895 kg 58.9 kg ABP, PAP, CO, CI - Last 8 Hours Arterial Blood Pressure 111/64 Arterial Blood Pressure 130/85 Arterial Blood Pressure 92/56 Arterial Blood Pressure 112/103 Arterial Blood Pressure 133/121 Arterial Blood Pressure 129/119 Arterial Blood Pressure 127/105 Arterial Blood Pressure 125/106 Arterial Blood Pressure 79/68 Arterial Blood Pressure 122/100 GENERAL EXAM: Alert, disoriented to place and time, fairly comfortable in no acute distress. HEAD: Normocephalic. EYES: Normal reaction of pupils, equal size. NOSE: Clear with pink turbinates. THROAT: No erythema or exudates. NECK: No masses, no JVD. CHEST: No chest wall deformity. LUNGS: Equal air entry with no crackles, wheeze, rhonchi or dullness. CVS: S1 and S2 normal with no audible murmurs, regular rhythm. ABDOMEN: Tender to palpation, normal bowel sounds. Extremities: No significant peripheral edema. No clubbing, no cyanosis. Peripheral pulses are intact. Results - Laboratory Findings CBC and BMP: 08/28/16 06:50 08/28/16 06:50 PT/INR, D-dimer PT 10.7 sec (9.0-12.0) 08/28/16 06:50 INR 1.1 (<1.1) 08/28/16 06:50 Abnormal lab findings: Abnormal Labs 08/27/16 08/27/16 08/28/16 20:20 23:48 06:50 WBC 18.3 H 17.6 H RBC 2.05 L 3.00 L Hgb 5.8 L* D 8.7 L D Hct 18.2 L* 27.2 L RDW 17.2 H 16.1 H Neutrophils # 14.5 H APTT Chloride Carbon Dioxide BUN POC Glucose (mg/dL) 104 H Calcium Magnesium Total Protein Albumin 08/28/16 08/28/16 08/28/16 06:50 06:50 06:50 WBC RBC Hgb Hct RDW Neutrophils # APTT 21.1 L Chloride 113 H Carbon Dioxide 20 L BUN 38 H POC Glucose (mg/dL) Calcium 7.6 L Magnesium 1.4 L Total Protein 4.8 L Albumin 2.4 L - Diagnostic Findings Chest x-ray: image reviewed (No acute pulmonary process.) Assessment and Plan Plan: Impression: #1 Acute gastrointestinal bleeding with a known history of large duodenal bulb ulcer recent EGD revealed no active bleeding. The patient was discharged 2 days prior to her readmission for an acute GI bleed. Initial hemoglobin 5.4. She has currently received 4 units of packed red blood cells thus far. Current hemoglobin 8.7. The plan is for EGD today. #2 Advanced dementia. #3 History of coronary artery disease. #4 Hypertension. #5 Osteoarthritis. #6 Acute renal failure secondary to acute GI bleed. Plan: The patient was seen and evaluated by Dr. Sargent. He had discussions with the patient's at the bedside. He did go ahead and place the triple-lumen catheter to the left subclavian. The plan is for EGD today. Patient was deemed a poor candidate for any surgical intervention per surgical services. She is a DO NOT RESUSCITATE/DO NOT INTUBATE CODE STATUS. Currently hemodynamically stable. We'll continue with supportive care. We'll continue to monitor her hemoglobin closely. She is on IV Protonix 40 mg twice a day. We will continue to follow make further recommendations based on her clinical status.
--- NOTE | 2016-08-28 10:39 | PCN ---
DATE OF PROCEDURE: PREOPERATIVE DIAGNOSIS: Administration of fluids and pressors. POSTOPERATIVE DIAGNOSIS: Administration of fluids and pressors. A time-out was completed verifying correct patient, procedure, site, positioning, and implant(s) or special equipment if applicable. The patient was placed in a dependent position appropriate for triple lumen catheter placement based on the vein to be cannulated. The patient's left neck was prepped and draped in sterile fashion. 1% Lidocaine was used to anesthetize the surrounding skin area. A triple lumen 9F Cordis catheter was introduced into the internal jugular vein using Seldinger technique. The catheter was threaded smoothly over the guide wire and appropriate blood return was obtained. Each lumen of the catheter was evacuated of air and flushed with sterile saline. Left internal jugular site was used. There was no immediate complication. The catheter was sutured in place. Sterile dressing was applied by the nurse. A chest x-ray was ordered to check placement. There was good blood return from all 3 ports. The patient tolerated the procedure well.
--- NOTE | 2016-08-28 10:40 | XR ---
EXAMINATION TYPE: XR chest 1V confirm line plcky DATE OF EXAM: 08/28/2016 10:32 AM HISTORY: Line placement. REFERENCE: Previous study dated 08/23/2016. FINDINGS: An NG tube is in place. Its tip is coiled in the stomach. A left subclavian catheter is been inserted. Its tip is in the right atrium. I do not see evidence of pneumothorax. The heart is enlarged. IMPRESSION: I DO NOT SEE A POST CATHETER INSERTION COMPLICATION.
[2016-08-28] MEDS ORDERED: PROPOFOL 10 MG/ML 20 ML VIAL IV ONE (11:14)
[2016-08-28] MEDS ORDERED: IV FLUID CONTINUATION 1,000 ML IV ONE (11:18)
[2016-08-28] MEDS ORDERED: EPINEPHrine 10 ML SYRINGE (0.1 MG/ML) MISCELLANE ONE (11:35)
--- NOTE | 2016-08-28 12:01 | P.PCN ---
Date of Procedure: 08/28/16 Procedure(s) Performed: BRIEF HISTORY: Patient is a 85-year-old, pleasant, white female admitted hospital with acute upper GI bleed. She had a hemoglobin of 5.8 g/dL and was transfused 2 units and while in the floor she had a massive episode of hematemesis and threw up at least 500 mL of fresh blood. She was transferred to the intensive care unit and repeat hemoglobin was 5.8 and can't. She decided to units of PRBC transfusion. She had an upper endoscopy done by Dr. Valente 6 days ago which showed a large duodenal bulbar ulcer with no active bleeding. Because of recurrent bleeding she is scheduled for a repeat upper endoscopy today at the bedside in the intensive care unit.. PROCEDURE PERFORMED: Esophagogastroduodenoscopy with injection epinephrine and cautery. PREOPERATIVE DIAGNOSIS: Acute recurrent upper GI bleed. IV sedation per anesthesia. PROCEDURE: After informed consent was obtained, the patient was brought into the endoscopy unit. IV conscious sedation was administered by Anesthesia under continuous monitoring. Initially the Olympus GIF-140 video endoscope was inserted into the mouth. Esophagus intubated without any difficulty. It was gradually advanced into the stomach and duodenum and carefully examined. In the distal part of the bulb of the duodenum along the duodenal sweep there was a circumferential ulceration identified and along the medial wall there was a visible vessel with small amount of oozing noted. After thorough irrigation was performed the site of bleeding was identified. 1 in 10,000 epinephrine was injected in the base of the ulcer at the site of bleeding and good hemostasis was achieved and total of 6 mL was injected. 5 this using a gold probe cautery was performed and good hemostasis was achieved. The scope at this time was withdrawn to the stomach, adequately insufflated with air, and upon careful examination, mucosa of the antrum, body, cardia and the fundus appeared normal. The scope was then withdrawn into the esophagus. The GE junction was located at 39 cm from the incisors. The esophagus appeared normal. There were no erosions or ulcerations seen and the patient tolerated the procedure well. IMPRESSION: 1. Circumferential duodenal bulbar ulcer along the duodenal sweep with a small visible vessel and active oozing, status post injection epinephrine and cautery with good hemostasis RECOMMENDATIONS: The findings of this examination were discussed with the patient as well as a family. At this time will start her on clear liquid diet and continue on IV Protonix 40 mg every 12 hours. CBC will be repeated every 6 hours and transfuse if hemoglobin is less than 7 g/dL.
--- NOTE | 2016-08-28 13:38 | P.PN ---
Subjective 85-year-old female being seen with the surgeon at the bedside GI service at the bedside an EGD to be done . Patient was admitted with acute upper GI bleed. Necessitating 2 units of packed red blood cells to be infused. Patient had a recent endoscopic done by Dr. Ramos 6 days ago did show a large duodenal ulcer with no active bleed this morning's hemoglobin 8.7 Objective - Vital Signs Vital signs: Vital Signs Temp 98.5 F 08/28/16 11:26 Pulse 78 08/28/16 11:26 Resp 12 08/28/16 11:26 BP 121/81 08/28/16 11:26 Pulse Ox 100 08/28/16 11:26 Intake & Output 08/27/16 08/28/16 08/28/16 18:59 06:59 18:59 Intake Total 1170 3960 450 Output Total 820 520 Balance 1170 3140 -70 Weight 49.895 kg 58.9 kg Intake: IV 3340 450 PRBC 620 Sodium Chloride 0.9% 1, 720 450 000 ml @ 90 mls/hr IV . Q11H7M [facility] Rx#:[id number] Sodium Chloride 0.9% 1, 2000 000 ml @ 999 mls/hr IV . Q1H1M [facility] Rx#:[id number] Oral 240 Blood Product 930 620 Rc As-1 Unit 310 [id number] Rc Pheresis 2 As3 Unit 310 [id number] Rc Pheresis As-3 Unit 310 [id number] Rc Pheresis As-3 Unit 310 [id number] Output: Gastric Drainage 250 Urine 570 520 Other: Voiding Method Indwelling Catheter Indwelling Catheter # Voids 1 # Bowel Movements 1 ABP, PAP, CO, CI - Last Documented Arterial Blood Pressure 116/113 - Exam Physical exam 85-year-old female oriented to self and place appears in no acute distress scheduled for an EGD at the bedside by Dr. Ware Lungs bilateral adequate air movement Heart S1-S2 audible and regular Abdomen diffuse tenderness noted not distended Extremities no edema - Labs CBC & Chem 7: 08/28/16 06:50 08/28/16 06:50 Labs: Abnormal Lab Results - Last 24 Hours (Table) 08/27/16 08/27/16 08/28/16 Range/Units 20:20 23:48 06:50 WBC 18.3 H 17.6 H (3.8-10.6) k/uL RBC 2.05 L 3.00 L (3.80-5.40) m/uL Hgb 5.8 L* D 8.7 L D (11.4-16.0) gm/dL Hct 18.2 L* 27.2 L (34.0-46.0) % RDW 17.2 H 16.1 H (11.5-15.5) % Neutrophils # 14.5 H (1.3-7.7) k/uL APTT (22.0-30.0) sec Chloride (98-107) mmol/L Carbon Dioxide (22-30) mmol/L BUN (7-17) mg/dL POC Glucose (mg/dL) 104 H (75-99) mg/dL Calcium (8.4-10.2) mg/dL Magnesium (1.6-2.3) mg/dL Total Protein (6.3-8.2) g/dL Albumin (3.5-5.0) g/dL 08/28/16 08/28/16 08/28/16 Range/Units 06:50 06:50 06:50 WBC (3.8-10.6) k/uL RBC (3.80-5.40) m/uL Hgb (11.4-16.0) gm/dL Hct (34.0-46.0) % RDW (11.5-15.5) % Neutrophils # (1.3-7.7) k/uL APTT 21.1 L (22.0-30.0) sec Chloride 113 H (98-107) mmol/L Carbon Dioxide 20 L (22-30) mmol/L BUN 38 H (7-17) mg/dL POC Glucose (mg/dL) (75-99) mg/dL Calcium 7.6 L (8.4-10.2) mg/dL Magnesium 1.4 L (1.6-2.3) mg/dL Total Protein 4.8 L (6.3-8.2) g/dL Albumin 2.4 L (3.5-5.0) g/dL Assessment and Plan Plan: Impression Acute blood loss anemia due to acute GI bleed necessitating transfusion 4 units packed red blood cells Advanced dementia Acute renal failure secondary to acute GI bleed No CODE STATUS Poor functional status poor surgical candidate Plan From a surgical perspective patient would be an increased risk to undergo an exploratory laparotomy for any further surgical intervention. The family has indicated they do not want CPR and they do not desire surgical intervention at this time No further surgical recommendations we'll see patient on an as-needed basis The above dictated assessment and findings were discussed with dr farzaneh Villatoro and the plan of care have been dictated as directed. Gaby Shaw nurse practitioner acting as a scribe for dr moy
[2016-08-28] MEDS: amLODIPine 2.5 MG TAB PO SCH (14:47)
[2016-08-28] MEDS: LISINOPRIL 20 MG TAB PO SCH (14:48)
[2016-08-28] MEDS: CHOLECALCIFEROL 1,000 UNIT TAB PO SCH (14:48)
[2016-08-28] MEDS ORDERED: Magnesium Replacement Protocol 1 EACH MISC MISCELLANE PRN (15:54)
[2016-08-28] MEDS ORDERED: Potassium Replacement Protocol 1 EACH MISC MISCELLANE PRN ×2 (15:55→16:41)
[2016-08-28] MEDS: MAGNESIUM SULFATE-D5W PMX 1 GM in DEXTROSE/WATER 1 100ML.BAG IVPB SCH ×3 (16:44→21:01)
[2016-08-28] MEDS ORDERED: POTASSIUM CHLORIDE ORAL LIQUID 40 MEQ/30 ML CUP NG-TUBE SCH (17:00)
--- NOTE | 2016-08-28 17:15 | CONS ---
DATE OF CONSULTATION: 08/28/2016 REASON FOR CONSULTATION: Acute upper GI bleed. HISTORY OF PRESENT ILLNESS: The patient is an 85-year-old pleasant lady who was just discharged home from the hospital, at which time she admitted with an acute upper GI bleed. She was evaluated by Dr. Valente and underwent an upper endoscopy on August 23 which revealed a large duodenal ulcer with no active bleeding. The patient was started on Protonix 40 mg twice daily and was discharged home. Apparently she was noted in a pool of blood and was brought into the emergency room yesterday afternoon and had a hemoglobin of 5.8. Subsequently she received 2 units of PRBC transfusion. Apparently around 10 p.m. last night she had an episode of hematemesis and approximately 500 mL of fresh blood was aspirated. Subsequently she had an NG tube placed, and her repeat hemoglobin was 5.8, and she received 2 more units of PRBC transfusion at that time. NG tube had approximately 250 of coffee-ground emesis. Because of the acute upper GI bleed, we are consulted in regards to this issue. The patient denies any abdominal pain, reports no nausea or vomiting; had 1 black tarry stool yesterday night. Past medical history is significant for: 1. Coronary artery disease. 2. Dementia. 3. Hypertension. 4. Osteoarthritis. PAST SURGICAL HISTORY: Right knee surgery. Medications at home include: 1. [place]. 2. Celexa. 3. Coreg. 4. Lisinopril. 5. Vitamin D3. 6. Lactulose. 7. Norvasc. 8. Xanax. 9. Trazodone. ALLERGIES: 1. ERYTHROMYCIN. 2. HYDROCHLOROTHIAZIDE. 3. BONIVA. 4. PENICILLIN. SOCIAL HISTORY: No smoking. No alcohol use. FAMILY HISTORY: Mother had congestive heart failure and coronary artery disease. Father had some kind of a cancer. REVIEW OF SYSTEMS: CARDIOPULMONARY: No chest pain or shortness of breath. GENITOURINARY: No dysuria or hematuria. MUSCULOSKELETAL: Unremarkable. SKIN: Unremarkable. ENDOCRINE: Unremarkable. PSYCHIATRIC: Unremarkable. NEUROLOGY: Mild dementia. ENT/VISION: Unremarkable. CONSTITUTIONAL: No recent weight loss. No fever, chills, night sweats On physical examination, she appears comfortable, in no apparent distress. Vitals as are stable. Blood pressure is 152/88, pulse rate 80, and temperature 98. HEENT examination unremarkable. Conjunctivae are pale, sclerae anicteric. Oral cavity shows no lesions. NECK: No JVD or lymph node enlargement. Chest was clear to auscultation. HEART: Regular rate and rhythm. ABDOMEN: Soft. It was nontender, nondistended. Liver and spleen not palpable. Bowel sounds are positive. No organomegaly. EXTREMITIES: No pedal edema. SKIN: No rashes. NEURO: Alert and oriented x3. No focal deficits. LABS DONE AT THE TIME OF ADMISSION TO THE HOSPITAL: Hemoglobin was 5.8. After 2 units it went up to 8.1. Then, after an episode of GI bleed it was back down to 5.8. This morning it is 8.7 g/dL. WBC is a 17.6. Platelets are normal. PT, INR is within normal limits. BUN 62, creatinine 1.49. AST is 15. ALT 23. Alkaline phosphatase is normal. IMPRESSION: This is a lady who presented to the hospital with acute upper gastrointestinal bleed and hemoglobin of 5.8. She had a similar hospitalization a week ago and upper endoscopy done by Dr. Valente on August 23 showed a large duodenal bulbar ulcer with no active bleeding. Most likely bleeding is from the duodenal bulbar ulcer at this time. RECOMMENDATIONS: 1. Continue with IV Protonix 40 mg q.12 hours. 2. CBC every 6 hours and transfuse if the hemoglobin is less than 7. 3. Will proceed with an upper endoscopy at the bedside this afternoon. 4. Surgical consultation was already placed, and Dr. Servin evaluated the patient. At this time the family does not want to have any surgical intervention. I will continue to follow the patient closely during her hospital stay. Thank you for this consultation.
--- NOTE | 2016-08-28 17:25 | P.PN ---
Subjective 85-year-old female that was recently in the hospital with the anemia. Patient was having multiple episodes of hematemesis. Patient underwent a upper endoscopy at that time was noted to have a large duodenal bulb ulcer. The pathology report of the ulcer is negative for H. pylori. He was thought secondary to NSAID use for pain. Patient was started on a PPI therapy as well as monitor for 48 hours in the hospital. And was discharged back to assisted living facility. Patient comes back in the hospital within 48 hours with multiple episodes of black tarry stools, which show a hemoglobin of 5.4 on admission. Patient received 2 units of PRBC at the time of my examination patient was more drowsy. However thereafter patient apparently was awake and was complaining of abdominal pain and epigastric region. Patient does have advanced dementia most of the history is obtained from chart review and from the family were at bedside. 2016 Pt was seen after EGD was drowsy Overnight, pt was triaged to ICU, fluid management and blood transfusion was guided by me over the phone ICU consultation was placed Objective - Vital Signs Vital signs: Vital Signs Temp 97.7 F 08/28/16 12:00 Pulse 71 08/28/16 15:30 Resp 13 08/28/16 15:30 BP 131/72 08/28/16 15:30 Pulse Ox 99 08/28/16 15:30 Intake & Output 08/27/16 08/28/16 08/28/16 18:59 06:59 18:59 Intake Total 1170 3960 810 Output Total 820 970 Balance 1170 3140 -160 Weight 49.895 kg 58.9 kg Intake: IV 3340 810 PRBC 620 Sodium Chloride 0.9% 1, 720 810 000 ml @ 90 mls/hr IV . Q11H7M [facility] Rx#:[id number] Sodium Chloride 0.9% 1, 2000 000 ml @ 999 mls/hr IV . Q1H1M [facility] Rx#:[id number] Oral 240 Blood Product 930 620 Rc As-1 Unit 310 [id number] Rc Pheresis 2 As3 Unit 310 [id number] Rc Pheresis As-3 Unit 310 [id number] Rc Pheresis As-3 Unit 310 [id number] Output: Gastric Drainage 250 Urine 570 970 Other: Voiding Method Indwelling Catheter Indwelling Catheter # Voids 1 # Bowel Movements 1 ABP, PAP, CO, CI - Last Documented Arterial Blood Pressure 116/113 - Constitutional General appearance: Present: no acute distress - EENT Eyes: Present: PERRLA - Neck Neck: Present: normal ROM - Respiratory Respiratory: bilateral: CTA - Cardiovascular Rhythm: regular Heart sounds: normal: S1, S2 - Gastrointestinal General gastrointestinal: Present: normal bowel sounds, soft. Absent: organomegaly, tenderness - Musculoskeletal Musculoskeletal: Present: generalized weakness - Allied health notes Allied health notes reviewed: nursing - Labs CBC & Chem 7: 08/28/16 06:50 08/28/16 06:50 Labs: Abnormal Lab Results - Last 24 Hours (Table) 08/27/16 08/27/16 08/28/16 Range/Units 20:20 23:48 06:50 WBC 18.3 H 17.6 H (3.8-10.6) k/uL RBC 2.05 L 3.00 L (3.80-5.40) m/uL Hgb 5.8 L* D 8.7 L D (11.4-16.0) gm/dL Hct 18.2 L* 27.2 L (34.0-46.0) % RDW 17.2 H 16.1 H (11.5-15.5) % Neutrophils # 14.5 H (1.3-7.7) k/uL APTT (22.0-30.0) sec Chloride (98-107) mmol/L Carbon Dioxide (22-30) mmol/L BUN (7-17) mg/dL POC Glucose (mg/dL) 104 H (75-99) mg/dL Calcium (8.4-10.2) mg/dL Magnesium (1.6-2.3) mg/dL Total Protein (6.3-8.2) g/dL Albumin (3.5-5.0) g/dL 08/28/16 08/28/16 08/28/16 Range/Units 06:50 06:50 06:50 WBC (3.8-10.6) k/uL RBC (3.80-5.40) m/uL Hgb (11.4-16.0) gm/dL Hct (34.0-46.0) % RDW (11.5-15.5) % Neutrophils # (1.3-7.7) k/uL APTT 21.1 L (22.0-30.0) sec Chloride 113 H (98-107) mmol/L Carbon Dioxide 20 L (22-30) mmol/L BUN 38 H (7-17) mg/dL POC Glucose (mg/dL) (75-99) mg/dL Calcium 7.6 L (8.4-10.2) mg/dL Magnesium 1.4 L (1.6-2.3) mg/dL Total Protein 4.8 L (6.3-8.2) g/dL Albumin 2.4 L (3.5-5.0) g/dL Assessment and Plan Plan: #1 acute blood loss anemia secondary to an upper GI bleed likely #2 acute kidney injury secondary to #1 and prerenal azotemia #3 advanced dementia #4 leukocytosis , reactive #5 history of hypertension #6 acute metabolic encephalopathy likely secondary to #1 Plan S/p EGD and intervention Close [place]. repeat HB Continue ICU care Bp stable meds were restarted Patient's CODE STATUS is DO NOT RESUSCITATE. Hemodynamically stable at this time
[2016-08-28] MEDS: MELATONIN 3 MG TABLET PO SCH (20:47)
[2016-08-28] MEDS: HYDROcodone/APAP 5-325MG 1 EACH TAB PO PRN (20:47)
[2016-08-28] MEDS: traZODone HCL 50 MG TAB PO SCH (20:48)
[2016-08-28] MEDS: QUEtiapine 25 MG TAB PO SCH (20:48)
[2016-08-29] MEDS: SODIUM CHLORIDE 0.9% 1,000 ML IV SCH ×3 (00:05→17:36)
[2016-08-29 05:50] LABS: Anisocytosis Slight; CH 29.9; CHCM 33.8; HCT 22.6 % (34.0-46.0); HDW 4.06; HGB 7.6 gm/dL (11.4-16.0); Hypochromasia Slight; MCH 29.8 pg (25.0-35.0); MCHC 33.6 g/dL (31.0-37.0); MCV 88.9 fL (80.0-100.0); Poikilocytosis Moderate; RBC 2.54 m/uL (3.80-5.40); RDW 16.7 % (11.5-15.5); WBC 12.4 k/uL (3.8-10.6); WBC (Perox) 12.38
[2016-08-29 06:05] LABS: Add Differential Manual Differential
[2016-08-29 06:08] LABS: Nucleated Red Blood Cells 0 /100 WBC (0-0); Total Cells Counted 100
[2016-08-29 06:10] LABS: Manual Review Performed
[2016-08-29 06:24] LABS: ALT 26 U/L (9-52); AST 16 U/L (14-36); Alkaline Phosphatase 47 U/L (38-126); Anion Gap 7 mmol/L; Blood Urea Nitrogen 20 mg/dL (7-17); Calcium 7.8 mg/dL (8.4-10.2); Carbon Dioxide 22 mmol/L (22-30); Chloride 111 mmol/L (98-107); Glucose 78 mg/dL (74-99); Non-African American GFR(MDRD) >60 (>60 ml/min/1.73 sqM); Phosphorous 2.6 mg/dL (2.5-4.5); Potassium 4.1 mmol/L (3.5-5.1); Sodium 140 mmol/L (137-145); Total Bilirubin 0.7 mg/dL (0.2-1.3); Total Protein 4.5 g/dL (6.3-8.2)
--- NOTE | 2016-08-29 09:06 | P.PN ---
Subjective Progress note dated 08/29/2016 85-year-old female who comes in with the but appears to be a GI bleed. The patient had an EGD done yesterday which showed a gastric ulcer. It wasn't actively bleeding. Was cauterized. Since she's been here, she received 4 units of PRBCs. She's getting 0.900 mL an hour. The EGD was done yesterday. She's not getting any supplemental oxygen. She is a DO NOT RESUSCITATE. Yesterday I did do a central line on her. She has a history of advanced dementia CAD hypertension chronic kidney disease and DJD. This is her second episode of GI bleeding. Objective - Vital Signs Vital signs: Vital Signs Temp 97.8 F 08/29/16 04:00 Pulse 67 08/29/16 07:00 Resp 16 08/29/16 07:00 BP 119/64 08/29/16 07:00 Pulse Ox 95 08/29/16 08:04 Intake & Output 08/28/16 08/29/16 08/29/16 18:59 06:59 18:59 Intake Total 1280 1275 90 Output Total 1420 1395 145 Balance -140 -120 -55 Weight 58.2 kg Intake: IV 1280 1180 90 Magnesium Sulfate-D5w Pmx 200 100 1 gm In Dextrose/Water 1 100ml.bag @ 100 mls/hr IVPB Q1H [facility] Rx#: [id number] Sodium Chloride 0.9% 1, 1080 1080 90 000 ml @ 90 mls/hr IV . Q11H7M [facility] Rx#:[id number] Oral 60 Tube Feeding 35 Output: Urine 1420 1395 145 Other: Voiding Method Indwelling Catheter Indwelling Catheter ABP, PAP, CO, CI - Last Documented Arterial Blood Pressure 116/113 - Exam No acute distress, oriented 3. No distress. HEENT examination is grossly unremarkable. Mucous membranes are moist. Not receiving any supplemental oxygen. Neck supple. Full range of motion. No adenopathy or thyromegaly. Cardio vascular examination reveals regular rhythm rate. S1-S2 normal. Lungs are clear breath sounds are equal. No wheezes. Abdomen soft bowel sounds are heard. Extremities are intact. - Labs CBC & Chem 7: 08/29/16 05:31 08/29/16 05:31 Labs: Abnormal Lab Results - Last 24 Hours (Table) 08/29/16 08/29/16 Range/Units 05:31 05:31 WBC 12.4 H (3.8-10.6) k/uL RBC 2.54 L (3.80-5.40) m/uL Hgb 7.6 L (11.4-16.0) gm/dL Hct 22.6 L (34.0-46.0) % RDW 16.7 H (11.5-15.5) % Neutrophils # (Manual) 9.7 H (1.3-7.7) k/uL Chloride 111 H (98-107) mmol/L BUN 20 H (7-17) mg/dL Calcium 7.8 L (8.4-10.2) mg/dL Total Protein 4.5 L (6.3-8.2) g/dL Albumin 2.1 L (3.5-5.0) g/dL Assessment and Plan (1) Acute GI bleeding Status: Acute (2) Acute blood loss anemia Status: Acute (3) Anemia Status: Acute Plan: Plan The patient's doing well. We will probably end up moving her out of the unit later today. The patient seems stable. No additional recommendations are made. She is a DO NOT RESUSCITATE. Central line was placed yesterday. Overall prognosis is guarded. We'll continue to follow. Labs x-rays medications are all reviewed. Time with Patient: Less than 30
--- NOTE | 2016-08-29 09:22 | P.PN ---
Subjective Principal diagnosis: GI bleed 85-year-old female with dementia admitted with acute GI bleed secondary to bleeding duodenal ulcer status post EGD with cautery and epinephrine injection. Nurse reports no evidence of active bleeding through the night. Tolerating clear liquids. Afebrile. Hemoglobin 7.6. Objective - Vital Signs Vital signs: Vital Signs Temp 97.8 F 08/29/16 04:00 Pulse 67 08/29/16 07:00 Resp 16 08/29/16 07:00 BP 119/64 08/29/16 07:00 Pulse Ox 95 08/29/16 08:04 Intake & Output 08/28/16 08/29/16 08/29/16 18:59 06:59 18:59 Intake Total 1280 1275 90 Output Total 1420 1395 145 Balance -140 -120 -55 Weight 58.2 kg Intake: IV 1280 1180 90 Magnesium Sulfate-D5w Pmx 200 100 1 gm In Dextrose/Water 1 100ml.bag @ 100 mls/hr IVPB Q1H [facility] Rx#: [id number] Sodium Chloride 0.9% 1, 1080 1080 90 000 ml @ 90 mls/hr IV . Q11H7M [facility] Rx#:[id number] Oral 60 Tube Feeding 35 Output: Urine 1420 1395 145 Other: Voiding Method Indwelling Catheter Indwelling Catheter ABP, PAP, CO, CI - Last Documented Arterial Blood Pressure 116/113 - Exam General appearance: The patient is alert, dementia.. HET: Head is normocephalic and atraumatic. Pupils are equal and reactive. Oropharynx is clear without lesions. Neck: Supple without lymphadenopathy. Trachea midline. Heart: S1 S2. Regular rate and rhythm. Lungs: No crackles or wheezes are heard. Abdomen: Soft, nontender, nondistended with bowel sounds. No peritoneal signs. No palpable organomegaly or masses. Extremities: Normal skin color and turgor. No cyanosis, rash, ulceration, clubbing, or edema. Radial and pedal pulses are 2/4 bilaterally. Elder clear yellow urine. Neurological: No focal deficits. Strength and sensation are grossly intact. - Labs CBC & Chem 7: 08/29/16 05:31 08/29/16 05:31 Labs: Abnormal Lab Results - Last 24 Hours (Table) 08/29/16 08/29/16 Range/Units 05:31 05:31 WBC 12.4 H (3.8-10.6) k/uL RBC 2.54 L (3.80-5.40) m/uL Hgb 7.6 L (11.4-16.0) gm/dL Hct 22.6 L (34.0-46.0) % RDW 16.7 H (11.5-15.5) % Neutrophils # (Manual) 9.7 H (1.3-7.7) k/uL Chloride 111 H (98-107) mmol/L BUN 20 H (7-17) mg/dL Calcium 7.8 L (8.4-10.2) mg/dL Total Protein 4.5 L (6.3-8.2) g/dL Albumin 2.1 L (3.5-5.0) g/dL Assessment and Plan (1) Acute upper GI bleed Narrative/Plan: Secondary to bleeding duodenal ulcer and visible vessel status post EGD with epinephrine injection and cautery Status: Acute (2) Acute blood loss anemia Status: Acute (3) Duodenal ulcer hemorrhage Status: Acute (4) Dementia Status: Chronic Plan: 1. Carafate 1 g twice daily. 2. Continue clear liquid diet but will add ensure 3 times daily. 3. Continue with IV Protonix 40 mg twice daily. Monitoring CBC. Assessment and plan of care discussed with Dr. Morton.
[2016-08-29] MEDS: CITALOPRAM HYDROBROMIDE 20 MG TAB PO SCH (09:37)
[2016-08-29] MEDS: CARVEDILOL 3.125 MG TAB PO SCH (09:37)
[2016-08-29] MEDS: PANTOPRAZOLE 40 MG/10 ML VIAL IV SCH ×2 (09:38→20:53)
[2016-08-29] MEDS: LACTULOSE 20 GM/30 ML CUP PO SCH (09:38)
[2016-08-29] MEDS: ALPRAZolam 0.25 MG TAB PO SCH (09:39)
[2016-08-29 13:09] LABS: Anisocytosis Slight; CH 29.6; CHCM 32.6; HCT 21.7 % (34.0-46.0); HDW 3.97; HGB 7.4 gm/dL (11.4-16.0); Hypochromasia Moderate; MCH 30.9 pg (25.0-35.0); MCHC 33.9 g/dL (31.0-37.0); MCV 91.2 fL (80.0-100.0); Mean Platelet Volume 7.9; Poikilocytosis Slight; RBC 2.38 m/uL (3.80-5.40); RDW 16.8 % (11.5-15.5); WBC 10.9 k/uL (3.8-10.6)
[2016-08-29] MEDS: LISINOPRIL 20 MG TAB PO SCH (14:49)
[2016-08-29] MEDS: CHOLECALCIFEROL 1,000 UNIT TAB PO SCH (14:49)
[2016-08-29] MEDS: amLODIPine 2.5 MG TAB PO SCH (14:49)
[2016-08-29] MEDS: SUCRALFATE 1 GM TAB PO SCH (17:36)
--- NOTE | 2016-08-29 17:46 | PN ---
DATE OF SERVICE: 08/29/2016 PRESENTING COMPLAINT: GI bleed. INTERVAL HISTORY: This is a patient with multiple episodes of hematemesis status post endoscopy showing a large duodenal bulb ulcer status post epinephrine injection. Patient has been on clear liquids in the ICU. The patient had some more dark stools. Denies abdominal pain, lying in bed. Review of systems done for constitutional, cardiovascular, GI, pulmonary, relevant findings as above. Current medications are reviewed that include: Carafate and IV Protonix. On examination, temperature 97.8, pulse 69, respiratory rate 14, blood pressure 120/63, pulse ox 95% on room air. GENERAL APPEARANCE: Lying in bed awake. EYES: Pupils equal. Conjunctivae pale. NECK: JVD not raised. Mass not palpable. RESPIRATORY: Effort normal. LUNGS: Diminished breath sounds. CARDIOVASCULAR: First and second sounds normal. No edema. ABDOMEN: Soft, nontender. Liver and spleen not palpable. PSYCHIATRY: Awake and answering some simple questions. INVESTIGATIONS: Hemoglobin 7.4. ASSESSMENT: 1. Acute severe blood loss anemia secondary to upper gastrointestinal bleed. 2. Duodenal bulb ulcer, acute with acute gastrointestinal bleed. 3. Alzheimer's dementia, late onset type, advanced. 4. Coronary artery disease. 5. Primary osteoarthritis multiple joints, bilaterally. 6. Depression, not otherwise specified. PLAN: Follow hemoglobin and hematocrit closely. Since blood pressure is running low, the patient's Norvasc and Zestril have been held. Keep the patient on Coreg. Keep a close eye on the patient hemoglobin. Diet will be advanced as per Gastroenterology. Follow.
[2016-08-29] MEDS: traZODone HCL 50 MG TAB PO SCH (21:24)
[2016-08-29] MEDS: QUEtiapine 25 MG TAB PO SCH (21:24)
[2016-08-30] MEDS: HYDROcodone/APAP 5-325MG 1 EACH TAB PO PRN ×2 (00:12→20:34)
[2016-08-30] MEDS: SODIUM CHLORIDE 0.9% 1,000 ML IV SCH ×2 (05:08→17:40)
[2016-08-30 05:09] LABS: Anisocytosis Slight; Basophils % (A) 0 %; CHCM 30.8; Eosinophils # (A) 0.5 k/uL (0-0.7); Eosinophils % (A) 4 %; HCT 24.9 % (34.0-46.0); HDW 3.73; HGB 7.8 gm/dL (11.4-16.0); Hypochromasia Marked; Luc # (Auto) 0.13; Luc % (Auto) 1; Lymphocytes # (A) 2.1 k/uL (1.0-4.8); Lymphocytes % (A) 17 %; MCH 29.6 pg (25.0-35.0); MCHC 31.2 g/dL (31.0-37.0); MCV 94.7 fL (80.0-100.0); Mean Platelet Volume 7.6; Monocytes # (A) 0.5 k/uL (0-1.0); Monocytes % (A) 4 %; Neutrophils # (A) 9.4 k/uL (1.3-7.7); Neutrophils % (A) 75 %; Poikilocytosis Slight; RBC 2.63 m/uL (3.80-5.40); RDW 16.7 % (11.5-15.5); WBC 12.6 k/uL (3.8-10.6)
[2016-08-30 05:18] LABS: Anion Gap 8 mmol/L; Blood Urea Nitrogen 13 mg/dL (7-17); Carbon Dioxide 23 mmol/L (22-30); Chloride 107 mmol/L (98-107); Glucose 76 mg/dL (74-99); Magnesium 1.8 mg/dL (1.6-2.3); Non-African American GFR(MDRD) >60 (>60 ml/min/1.73 sqM); Phosphorous 2.7 mg/dL (2.5-4.5); Potassium 3.6 mmol/L (3.5-5.1); Sodium 138 mmol/L (137-145)
[2016-08-30] MEDS ORDERED: Potassium Replacement Protocol 1 EACH MISC MISCELLANE PRN (06:21)
[2016-08-30] MEDS ORDERED: Magnesium Replacement Protocol 1 EACH MISC MISCELLANE PRN (06:22)
[2016-08-30] MEDS: POTASSIUM CHLORIDE 10 MEQ in WATER FOR INJECTION 1 100ML.BAG IVPB SCH ×2 (06:56→07:55)
[2016-08-30] MEDS: MAGNESIUM SULFATE-D5W PMX 1 GM in DEXTROSE/WATER 1 100ML.BAG IVPB SCH ×2 (06:56→07:55)
[2016-08-30] MEDS: PANTOPRAZOLE 40 MG/10 ML VIAL IV SCH ×2 (07:55→20:34)
[2016-08-30] MEDS: CITALOPRAM HYDROBROMIDE 20 MG TAB PO SCH (07:56)
[2016-08-30] MEDS: SUCRALFATE 1 GM TAB PO SCH ×2 (07:56→17:40)
[2016-08-30] MEDS: amLODIPine 2.5 MG TAB PO SCH (07:56)
[2016-08-30] MEDS: CARVEDILOL 3.125 MG TAB PO SCH (07:56)
[2016-08-30] MEDS: LACTULOSE 20 GM/30 ML CUP PO SCH (07:57)
[2016-08-30] MEDS: ALPRAZolam 0.25 MG TAB PO SCH (07:57)
--- NOTE | 2016-08-30 08:22 | P.PN ---
Subjective Progress note dated 08/29/2016 85-year-old female who comes in with the but appears to be a GI bleed. The patient had an EGD done yesterday which showed a gastric ulcer. It wasn't actively bleeding. Was cauterized. Since she's been here, she received 4 units of PRBCs. She's getting 0.900 mL an hour. The EGD was done yesterday. She's not getting any supplemental oxygen. She is a DO NOT RESUSCITATE. Yesterday I did do a central line on her. She has a history of advanced dementia CAD hypertension chronic kidney disease and DJD. This is her second episode of GI bleeding. Progress note dated 08/30/2016 85-year-old female with history of a GI bleed. The patient had an EGD done a couple days back which showed a gastric ulcer. It wasn't actively bleeding. The ulcer was cauterized. Since she's been here she's received 4 units of PRBCs. She getting appointment 9 IV at 90 mL an hour. She's not receiving any supplemental oxygen. She is a DO NOT RESUSCITATE. In addition to her GI bleed she has history of advanced dementia CAD hypertension chronic kidney disease and DJD. The patient is doing well. No complaints. She can move out to the floor. Objective - Vital Signs Vital signs: Vital Signs Temp 98.5 F 08/30/16 04:00 Pulse 72 08/30/16 07:00 Resp 11 L 08/30/16 07:00 BP 145/87 08/30/16 07:00 Pulse Ox 95 08/30/16 07:00 Intake & Output 08/29/16 08/30/16 08/30/16 18:59 06:59 18:59 Intake Total 1200 1090 90 Output Total 1495 2325 175 Balance -295 -1235 -85 Weight 58.2 kg 57.5 kg Intake: IV 900 990 90 Sodium Chloride 0.9% 1, 900 990 90 000 ml @ 90 mls/hr IV . Q11H7M [facility] Rx#:[id number] Intake, IV Titration 180 Amount Sodium Chloride 0.9% 1, 180 000 ml @ 90 mls/hr IV . Q11H7M [facility] Rx#:[id number] Oral 120 100 Output: Urine 1495 2325 175 Other: Voiding Method Indwelling Catheter Indwelling Catheter # Voids 1 1 ABP, PAP, CO, CI - Last Documented Arterial Blood Pressure 116/113 - Exam No acute distress, oriented 3. No distress. HEENT examination is grossly unremarkable. Mucous membranes are moist. Not receiving any supplemental oxygen. Neck supple. Full range of motion. No adenopathy or thyromegaly. Left internal jugular triple-lumen site looks good. No redness. No drainage. Cardio vascular examination reveals regular rhythm rate. S1-S2 normal. Lungs are clear breath sounds are equal. No wheezes. Abdomen soft bowel sounds are heard. Extremities are intact. - Labs CBC & Chem 7: 08/30/16 04:15 08/30/16 04:15 Labs: Abnormal Lab Results - Last 24 Hours (Table) 08/29/16 08/30/16 08/30/16 Range/Units 12:55 04:15 04:15 WBC 10.9 H 12.6 H (3.8-10.6) k/uL RBC 2.38 L 2.63 L (3.80-5.40) m/uL Hgb 7.4 L 7.8 L (11.4-16.0) gm/dL Hct 21.7 L 24.9 L (34.0-46.0) % RDW 16.8 H 16.7 H (11.5-15.5) % Neutrophils # 9.4 H (1.3-7.7) k/uL Calcium 8.0 L (8.4-10.2) mg/dL Assessment and Plan (1) Acute GI bleeding Status: Acute (2) Acute blood loss anemia Status: Acute (3) Anemia Status: Acute Plan: Plan The patient's doing well. We will probably end up moving her out of the unit later today. The patient seems stable. No additional recommendations are made. She is a DO NOT RESUSCITATE. Central line was placed yesterday. Overall prognosis is guarded. We'll continue to follow. Labs x-rays medications are all reviewed. Plan dated 08/30/2016 The patient's doing well. The patient can be discharged out of the unit today. She can go to the general medical floor. She is a DO NOT RESUSCITATE. No additional bleeding. No additional blood requirements. No jugular triple lumen site looks good. We'll leave that and she is a hard I suspect. Prognosis is guarded. Time with Patient: Less than 30
[2016-08-30] MEDS: LISINOPRIL 20 MG TAB PO SCH (09:41)
[2016-08-30 09:57] VITALS: BMI 23.1
--- NOTE | 2016-08-30 10:53 | P.PN ---
Subjective Principal diagnosis: GI bleed 85-year-old female with dementia admitted with acute GI bleed secondary to bleeding duodenal ulcer status post EGD with cautery and epinephrine injection. Nurse reports few smears of black colored bowel movements last night. Tolerating clear liquids. Afebrile. Hemoglobin 7.8. Objective - Vital Signs Vital signs: Vital Signs Temp 96.1 F L 08/30/16 10:41 Pulse 75 08/30/16 10:41 Resp 16 08/30/16 10:41 BP 143/85 08/30/16 10:41 Pulse Ox 97 08/30/16 10:41 Intake & Output 08/29/16 08/30/16 08/30/16 18:59 06:59 18:59 Intake Total 1200 1090 305 Output Total 1495 2325 850 Balance -295 -3614 -105 Weight 58.2 kg 57.5 kg 57.5 kg Intake: IV 900 990 270 Sodium Chloride 0.9% 1, 900 990 270 000 ml @ 90 mls/hr IV . Q11H7M [facility] Rx#:[id number] Intake, IV Titration 180 Amount Sodium Chloride 0.9% 1, 180 000 ml @ 90 mls/hr IV . Q11H7M [facility] Rx#:[id number] Oral 120 100 Tube Feeding 35 Output: Urine 1495 2325 850 Other: Voiding Method Indwelling Catheter Indwelling Catheter Indwelling Catheter # Voids 1 1 1 ABP, PAP, CO, CI - Last Documented Arterial Blood Pressure 116/113 - Exam General appearance: The patient is alert, dementia.. HET: Head is normocephalic and atraumatic. Pupils are equal and reactive. Oropharynx is clear without lesions. Neck: Supple without lymphadenopathy. Trachea midline. Heart: S1 S2. Regular rate and rhythm. Lungs: No crackles or wheezes are heard. Abdomen: Soft, nontender, nondistended with bowel sounds. No peritoneal signs. No palpable organomegaly or masses. Extremities: Normal skin color and turgor. No cyanosis, rash, ulceration, clubbing, or edema. Radial and pedal pulses are 2/4 bilaterally. Elder clear yellow urine. Neurological: No focal deficits. Strength and sensation are grossly intact. - Labs CBC & Chem 7: 08/30/16 04:15 08/30/16 04:15 Labs: Abnormal Lab Results - Last 24 Hours (Table) 08/29/16 08/30/16 08/30/16 Range/Units 12:55 04:15 04:15 WBC 10.9 H 12.6 H (3.8-10.6) k/uL RBC 2.38 L 2.63 L (3.80-5.40) m/uL Hgb 7.4 L 7.8 L (11.4-16.0) gm/dL Hct 21.7 L 24.9 L (34.0-46.0) % RDW 16.8 H 16.7 H (11.5-15.5) % Neutrophils # 9.4 H (1.3-7.7) k/uL Calcium 8.0 L (8.4-10.2) mg/dL Assessment and Plan (1) Acute upper GI bleed Narrative/Plan: Secondary to bleeding duodenal ulcer and visible vessel status post EGD with epinephrine injection and cautery Status: Acute (2) Acute blood loss anemia Status: Acute (3) Duodenal ulcer hemorrhage Status: Acute (4) Dementia Status: Chronic Plan: 1. Carafate 1 g twice daily. Transfer to medical floor. 2. Advance to full liquids; continue ensure 3 times daily. 3. Continue with IV Protonix 40 mg twice daily. Monitoring CBC. Assessment and plan of care discussed with Dr. Morton.
[2016-08-30] MEDS: CHOLECALCIFEROL 1,000 UNIT TAB PO SCH (17:40)
[2016-08-30] MEDS: traZODone HCL 50 MG TAB PO SCH (20:33)
[2016-08-30] MEDS: QUEtiapine 25 MG TAB PO SCH (20:34)
[2016-08-31] MEDS: SODIUM CHLORIDE 0.9% 1,000 ML IV SCH ×3 (02:53→21:02)
--- NOTE | 2016-08-31 06:46 | PN ---
DATE OF SERVICE: 08/30/2016 PRESENTING COMPLAINT: GI bleed. INTERVAL HISTORY: This is a patient who presented with multiple episodes of hematemesis, status post endoscopy showing large duodenal bulb ulcer and status post local epinephrine injection. Patient has been having ( ) of maroon stool, pleasantly confused at baseline. Review of systems was attempted. Current medications are reviewed that include PPI and Carafate. On examination, temperature 98.1, pulse 74, respirations 16, blood pressure 130/79, pulse ox 95% on room air. GENERAL APPEARANCE: Lying in bed, awake. EYES: Pupils equal. Conjunctiva pale. EYES: Pupils equal. Conjunctivae pale. NECK: JVD not raised. Mass not palpable. RESPIRATORY: Effort normal. LUNGS: Diminished breath sounds. CARDIOVASCULAR: First and second sounds normal. No edema. ABDOMEN: Soft, nontender. Liver and spleen not palpable. PSYCHIATRY: Awake, answering some simple questions, but pleasantly confused. INVESTIGATIONS: White count 12.6, hemoglobin 7.8. ASSESSMENT: 1. Acute severe blood loss anemia secondary to upper gastrointestinal bleed. 2. Duodenal bulb ulcer, acute with acute gastrointestinal bleed with epinephrine cauterization. 3. Alzheimer's dementia, late onset type, advanced. 4. Coronary artery disease. 5. Primary osteoarthritis in multiple joints, bilateral. 6. Depression, not otherwise specified. PLAN: Continue current medication and treatment plan. Blood pressure is doing better after backing off ( ) antihypertensives. Overall prognosis is guarded. Will follow.
[2016-08-31 09:51] LABS: Anisocytosis Slight; Basophils % (A) 0 %; CH 29.6; CHCM 31.6; Eosinophils # (A) 0.3 k/uL (0-0.7); Eosinophils % (A) 3 %; HCT 26.9 % (34.0-46.0); HDW 3.51; HGB 8.4 gm/dL (11.4-16.0); Hypochromasia Moderate; Luc # (Auto) 0.06; Luc % (Auto) 1; Lymphocytes # (A) 1.7 k/uL (1.0-4.8); Lymphocytes % (A) 17 %; MCH 29.5 pg (25.0-35.0); MCHC 31.3 g/dL (31.0-37.0); MCV 94.2 fL (80.0-100.0); Mean Platelet Volume 8.8; Monocytes # (A) 0.5 k/uL (0-1.0); Monocytes % (A) 6 %; Neutrophils # (A) 7.1 k/uL (1.3-7.7); Neutrophils % (A) 74 %; Poikilocytosis Slight; RBC 2.85 m/uL (3.80-5.40); RDW 16.7 % (11.5-15.5); WBC 9.7 k/uL (3.8-10.6); WBC (Perox) 10.22
--- NOTE | 2016-08-31 10:47 | P.PN ---
Subjective Principal diagnosis: GI bleed 85-year-old female with dementia admitted with acute GI bleed secondary to bleeding duodenal ulcer status post EGD with cautery and epinephrine injection. Nurse reports small maroon colored bowel movements last night. Tolerating full liquids. Afebrile. Patient reports nausea and mild stomach discomfort this morning. Hemoglobin 8.4. Objective - Vital Signs Vital signs: Vital Signs Temp 97.8 F 08/31/16 07:00 Pulse 77 08/31/16 07:00 Resp 18 08/31/16 07:00 BP 141/76 08/31/16 07:00 Pulse Ox 98 08/31/16 07:00 Intake & Output 08/30/16 08/31/16 08/31/16 18:59 06:59 18:59 Intake Total 305 150 Output Total 850 Balance -545 150 Weight 57.5 kg Intake: IV 270 Sodium Chloride 0.9% 1, 270 000 ml @ 90 mls/hr IV . Q11H7M [facility] Rx#:[id number] Oral 150 Tube Feeding 35 Output: Urine 850 Other: Voiding Method Indwelling Catheter Diaper # Voids 3 2 # Bowel Movements 2 ABP, PAP, CO, CI - Last Documented Arterial Blood Pressure 116/113 - Exam General appearance: The patient is alert, dementia.. HET: Head is normocephalic and atraumatic. Pupils are equal and reactive. Oropharynx is clear without lesions. Neck: Supple without lymphadenopathy. Trachea midline. Heart: S1 S2. Regular rate and rhythm. Lungs: No crackles or wheezes are heard. Abdomen: Soft, mild tenderness midepigastrium, nondistended with bowel sounds. No peritoneal signs. No palpable organomegaly or masses. Extremities: Normal skin color and turgor. No cyanosis, rash, ulceration, clubbing, or edema. Radial and pedal pulses are 2/4 bilaterally. Elder clear yellow urine. Neurological: No focal deficits. Strength and sensation are grossly intact. - Labs CBC & Chem 7: 08/31/16 07:53 08/30/16 04:15 Labs: Abnormal Lab Results - Last 24 Hours (Table) 08/31/16 Range/Units 07:53 RBC 2.85 L (3.80-5.40) m/uL Hgb 8.4 L (11.4-16.0) gm/dL Hct 26.9 L (34.0-46.0) % RDW 16.7 H (11.5-15.5) % Assessment and Plan (1) Acute upper GI bleed Narrative/Plan: Secondary to bleeding duodenal ulcer and visible vessel status post EGD with epinephrine injection and cautery Status: Acute (2) Acute blood loss anemia Status: Acute (3) Duodenal ulcer hemorrhage Status: Acute (4) Dementia Status: Chronic Plan: 1. Continue Carafate 1 g twice daily. 2. Continue full liquids and ensure without advancement. 3. Continue with IV Protonix 40 mg twice daily. Monitoring CBC. Assessment and plan of care discussed with Dr. Morton.
[2016-08-31] MEDS: SUCRALFATE 1 GM TAB PO SCH ×2 (11:18→17:21)
[2016-08-31] MEDS: PANTOPRAZOLE 40 MG/10 ML VIAL IV SCH ×2 (11:18→20:58)
[2016-08-31] MEDS: amLODIPine 2.5 MG TAB PO SCH (11:20)
[2016-08-31] MEDS: CHOLECALCIFEROL 1,000 UNIT TAB PO SCH (11:20)
[2016-08-31] MEDS: CARVEDILOL 3.125 MG TAB PO SCH (11:20)
[2016-08-31] MEDS: LACTULOSE 20 GM/30 ML CUP PO SCH (11:20)
[2016-08-31] MEDS: CITALOPRAM HYDROBROMIDE 20 MG TAB PO SCH (11:21)
[2016-08-31] MEDS: ALPRAZolam 0.25 MG TAB PO SCH (11:21)
[2016-08-31] MEDS: LISINOPRIL 20 MG TAB PO SCH (11:35)
--- NOTE | 2016-08-31 14:12 | P.PN ---
Subjective Progress note dated 08/29/2016 85-year-old female who comes in with the but appears to be a GI bleed. The patient had an EGD done yesterday which showed a gastric ulcer. It wasn't actively bleeding. Was cauterized. Since she's been here, she received 4 units of PRBCs. She's getting 0.900 mL an hour. The EGD was done yesterday. She's not getting any supplemental oxygen. She is a DO NOT RESUSCITATE. Yesterday I did do a central line on her. She has a history of advanced dementia CAD hypertension chronic kidney disease and DJD. This is her second episode of GI bleeding. Progress note dated 08/30/2016 85-year-old female with history of a GI bleed. The patient had an EGD done a couple days back which showed a gastric ulcer. It wasn't actively bleeding. The ulcer was cauterized. Since she's been here she's received 4 units of PRBCs. She getting appointment 9 IV at 90 mL an hour. She's not receiving any supplemental oxygen. She is a DO NOT RESUSCITATE. In addition to her GI bleed she has history of advanced dementia CAD hypertension chronic kidney disease and DJD. The patient is doing well. No complaints. She can move out to the floor. Progress note dated 08/31/2016 85-year-old female with history of GI bleed. She was moved out of the ICU couple days ago. Seems be doing relatively well. A couple family members with her. She was actually eating only went into the room. She had an EGD done which showed a gastric ulcer. It was not actively bleeding. The also was the ulcer bed was cauterized. She has received 4 units of blood since she's been here. Other med do relatively well. She is a DO NOT RESUSCITATE. She does have a central line in the left internal jugular triple lumen site. Objective - Vital Signs Vital signs: Vital Signs Temp 97.8 F 08/31/16 07:00 Pulse 77 08/31/16 07:00 Resp 18 08/31/16 07:00 BP 141/76 08/31/16 07:00 Pulse Ox 98 08/31/16 07:00 Intake & Output 08/30/16 08/31/16 08/31/16 18:59 06:59 18:59 Intake Total 305 150 Output Total 850 Balance -545 150 Weight 57.5 kg Intake: IV 270 Sodium Chloride 0.9% 1, 270 000 ml @ 90 mls/hr IV . Q11H7M [facility] Rx#:[id number] Oral 150 Tube Feeding 35 Output: Urine 850 Other: Voiding Method Indwelling Catheter Diaper Diaper # Voids 3 2 # Bowel Movements 2 ABP, PAP, CO, CI - Last Documented Arterial Blood Pressure 116/113 - Exam No acute distress, oriented 3. No distress. HEENT examination is grossly unremarkable. Mucous membranes are moist. Not receiving any supplemental oxygen. Neck supple. Full range of motion. No adenopathy or thyromegaly. Left internal jugular triple-lumen site looks good. No redness. No drainage. Cardio vascular examination reveals regular rhythm rate. S1-S2 normal. Lungs are clear breath sounds are equal. No wheezes. Abdomen soft bowel sounds are heard. Extremities are intact. - Labs CBC & Chem 7: 08/31/16 07:53 08/30/16 04:15 Labs: Abnormal Lab Results - Last 24 Hours (Table) 08/31/16 Range/Units 07:53 RBC 2.85 L (3.80-5.40) m/uL Hgb 8.4 L (11.4-16.0) gm/dL Hct 26.9 L (34.0-46.0) % RDW 16.7 H (11.5-15.5) % Assessment and Plan (1) Acute GI bleeding Status: Acute (2) Acute blood loss anemia Status: Acute (3) Anemia Status: Acute Plan: Plan The patient's doing well. We will probably end up moving her out of the unit later today. The patient seems stable. No additional recommendations are made. She is a DO NOT RESUSCITATE. Central line was placed yesterday. Overall prognosis is guarded. We'll continue to follow. Labs x-rays medications are all reviewed. Plan dated 08/30/2016 The patient's doing well. The patient can be discharged out of the unit today. She can go to the general medical floor. She is a DO NOT RESUSCITATE. No additional bleeding. No additional blood requirements. No jugular triple lumen site looks good. We'll leave that and she is a hard I suspect. Prognosis is guarded. Plan dated 08/31/2016 The patient's doing well. Likely discharge soon. May go home on May go to rehab. The patient central line will stay in until discharged. No additional bleeding. She looks more awake and alert. Does suffer from severe dementia. Spoke to the and another family member today. Time with Patient: Less than 30
--- NOTE | 2016-08-31 19:59 | PN ---
DATE OF SERVICE: 08/31/2016 PRESENTING COMPLAINT: GI bleed. INTERVAL HISTORY: This is a patient who presented with multiple episodes of hematemesis, status post endoscopy showing large duodenal ulcer that required epinephrine injection. Patient had a maroon-colored stool again last night. On clear liquids. Patient is pleasantly confused, answering some simple questions. Review of systems was attempted. Current medications include PPIs. On examination, temperature 97.8, pulse 77, respiration 18, blood pressure 141/76, pulse ox 98% on room air. GENERAL APPEARANCE: Lying in bed, awake, comfortable. EYES: Pupils equal. Conjunctivae pale. NECK: JVD not raised. Mass not palpable. RESPIRATORY: Effort normal. LUNGS: Diminished breath sounds. CARDIOVASCULAR: First and second sounds normal. No edema. ABDOMEN: Soft, nontender. Liver and spleen not palpable. PSYCHIATRY: Pleasantly confused. Answering simple questions. INVESTIGATIONS: White count 9.7, hemoglobin 8.4. ASSESSMENT: 1. Acute severe blood loss anemia secondary to upper gastrointestinal bleed. 2. Duodenal bulb ulcer, acute, with acute gastrointestinal bleed with epinephrine injection. 3. Alzheimer's dementia, late onset type, advanced. 4. Coronary artery disease. 5. Primary osteoarthritis in multiple joints, bilateral. 6. Depression not otherwise specified. PLAN: Continue current medication and treatment plan. Prognosis remains guarded. Will follow.
[2016-08-31] MEDS: traZODone HCL 50 MG TAB PO SCH (20:58)
[2016-08-31] MEDS: HYDROcodone/APAP 5-325MG 1 EACH TAB PO PRN (20:58)
[2016-08-31] MEDS: QUEtiapine 25 MG TAB PO SCH (20:58)
[2016-09-01 09:30] LABS: Anisocytosis Slight; Basophils % (A) 0 %; CH 28.9; CHCM 31.1; Eosinophils # (A) 0.3 k/uL (0-0.7); Eosinophils % (A) 4 %; HCT 27.1 % (34.0-46.0); HDW 3.58; HGB 8.6 gm/dL (11.4-16.0); Hypochromasia Moderate; Luc # (Auto) 0.11; Luc % (Auto) 2; Lymphocytes # (A) 1.8 k/uL (1.0-4.8); Lymphocytes % (A) 26 %; MCH 29.6 pg (25.0-35.0); MCHC 31.7 g/dL (31.0-37.0); MCV 93.3 fL (80.0-100.0); Mean Platelet Volume 7.5; Monocytes # (A) 0.4 k/uL (0-1.0); Monocytes % (A) 6 %; Neutrophils # (A) 4.4 k/uL (1.3-7.7); Neutrophils % (A) 62 %; Poikilocytosis Slight; RBC 2.91 m/uL (3.80-5.40); RDW 16.3 % (11.5-15.5); WBC (Perox) 7.41
--- NOTE | 2016-09-01 10:01 | P.PN ---
Subjective Principal diagnosis: GI bleed 85-year-old female with dementia admitted with acute GI bleed secondary to bleeding duodenal ulcer status post EGD with cautery and epinephrine injection. Nurse reports medium maroon colored bowel movements yesterday afternoon. Tolerating full liquids. Afebrile. Hemoglobin 8.6 this morning. Objective - Vital Signs Vital signs: Vital Signs Temp 98.7 F 09/01/16 07:00 Pulse 76 09/01/16 07:00 Resp 18 09/01/16 07:00 BP 121/83 09/01/16 07:00 Pulse Ox 97 09/01/16 07:00 Intake & Output 08/31/16 09/01/16 09/01/16 18:59 06:59 18:59 Intake Total 680 Balance 680 Intake: Oral 680 Other: Voiding Method Diaper Diaper # Voids 3 2 # Bowel Movements 0 ABP, PAP, CO, CI - Last Documented Arterial Blood Pressure 116/113 - Exam General appearance: The patient is alert, dementia.. HET: Head is normocephalic and atraumatic. Pupils are equal and reactive. Oropharynx is clear without lesions. Neck: Supple without lymphadenopathy. Trachea midline. Heart: S1 S2. Regular rate and rhythm. Lungs: No crackles or wheezes are heard. Abdomen: Soft, mild tenderness midepigastrium, nondistended with bowel sounds. No peritoneal signs. No palpable organomegaly or masses. Extremities: Normal skin color and turgor. No cyanosis, rash, ulceration, clubbing, or edema. Radial and pedal pulses are 2/4 bilaterally. Elder clear yellow urine. Neurological: No focal deficits. Strength and sensation are grossly intact. - Labs CBC & Chem 7: 09/01/16 09:09 08/30/16 04:15 Labs: Abnormal Lab Results - Last 24 Hours (Table) 09/01/16 Range/Units 09:09 RBC 2.91 L (3.80-5.40) m/uL Hgb 8.6 L (11.4-16.0) gm/dL Hct 27.1 L (34.0-46.0) % RDW 16.3 H (11.5-15.5) % Assessment and Plan (1) Acute upper GI bleed Narrative/Plan: Secondary to bleeding duodenal ulcer and visible vessel status post EGD with epinephrine injection and cautery Status: Acute (2) Acute blood loss anemia Status: Acute (3) Duodenal ulcer hemorrhage Status: Acute (4) Dementia Status: Chronic Plan: 1. Continue Carafate 1 g twice daily. 2. Continue full liquids and ensure without advancement. 3. Continue with IV Protonix 40 mg twice daily. Monitor CBC. Assessment and plan of care discussed with Dr. Morton.
[2016-09-01] MEDS: LACTULOSE 20 GM/30 ML CUP PO SCH (10:45)
[2016-09-01] MEDS: PANTOPRAZOLE 40 MG/10 ML VIAL IV SCH ×2 (10:45→21:17)
[2016-09-01] MEDS: CHOLECALCIFEROL 1,000 UNIT TAB PO SCH (10:45)
[2016-09-01] MEDS: CITALOPRAM HYDROBROMIDE 20 MG TAB PO SCH (10:46)
[2016-09-01] MEDS: LISINOPRIL 20 MG TAB PO SCH (10:46)
[2016-09-01] MEDS: ALPRAZolam 0.25 MG TAB PO SCH (10:46)
[2016-09-01] MEDS: CARVEDILOL 3.125 MG TAB PO SCH (10:46)
[2016-09-01] MEDS: SUCRALFATE 1 GM TAB PO SCH ×2 (10:46→17:22)
[2016-09-01] MEDS: amLODIPine 2.5 MG TAB PO SCH (10:46)
--- NOTE | 2016-09-01 13:33 | P.PN ---
Subjective Progress note dated 08/29/2016 85-year-old female who comes in with the but appears to be a GI bleed. The patient had an EGD done yesterday which showed a gastric ulcer. It wasn't actively bleeding. Was cauterized. Since she's been here, she received 4 units of PRBCs. She's getting 0.900 mL an hour. The EGD was done yesterday. She's not getting any supplemental oxygen. She is a DO NOT RESUSCITATE. Yesterday I did do a central line on her. She has a history of advanced dementia CAD hypertension chronic kidney disease and DJD. This is her second episode of GI bleeding. Progress note dated 08/30/2016 85-year-old female with history of a GI bleed. The patient had an EGD done a couple days back which showed a gastric ulcer. It wasn't actively bleeding. The ulcer was cauterized. Since she's been here she's received 4 units of PRBCs. She getting appointment 9 IV at 90 mL an hour. She's not receiving any supplemental oxygen. She is a DO NOT RESUSCITATE. In addition to her GI bleed she has history of advanced dementia CAD hypertension chronic kidney disease and DJD. The patient is doing well. No complaints. She can move out to the floor. Progress note dated 08/31/2016 85-year-old female with history of GI bleed. She was moved out of the ICU couple days ago. Seems be doing relatively well. A couple family members with her. She was actually eating only went into the room. She had an EGD done which showed a gastric ulcer. It was not actively bleeding. The also was the ulcer bed was cauterized. She has received 4 units of blood since she's been here. Other med do relatively well. She is a DO NOT RESUSCITATE. She does have a central line in the left internal jugular triple lumen site. Progress note dated 09/01/2016 This is a 85-year-old female with a history of GI bleed. She was in the ICU for a number days. A central line was placed. It's in the left internal jugular site. She's doing relatively well. No further bleeding. She had an EGD which showed a gastric ulcer. It was not actively bleeding. The lesion was cauterized. She's received 4 units of blood since she's been here in the hospital. Again no additional bleeding. Very stable otherwise. Pulmonary status is stable. She does have a history of advanced dementia CAD hypertension chronic kidney disease and arthritis. Objective - Vital Signs Vital signs: Vital Signs Temp 98.7 F 09/01/16 07:00 Pulse 76 09/01/16 07:00 Resp 18 09/01/16 07:00 BP 121/83 09/01/16 07:00 Pulse Ox 97 09/01/16 07:00 Intake & Output 08/31/16 09/01/16 09/01/16 18:59 06:59 18:59 Intake Total 680 Balance 680 Weight 57.5 kg Intake: Oral 680 Other: Voiding Method Diaper Diaper # Voids 3 2 # Bowel Movements 0 ABP, PAP, CO, CI - Last Documented Arterial Blood Pressure 116/113 - Exam No acute distress, oriented 3. No distress. HEENT examination is grossly unremarkable. Mucous membranes are moist. Not receiving any supplemental oxygen. Neck supple. Full range of motion. No adenopathy or thyromegaly. Left internal jugular triple-lumen site looks good. No redness. No drainage. Cardio vascular examination reveals regular rhythm rate. S1-S2 normal. Lungs are clear breath sounds are equal. Abdomen soft bowel sounds are heard. No masses Extremities are intact. - Labs CBC & Chem 7: 09/01/16 09:09 08/30/16 04:15 Labs: Abnormal Lab Results - Last 24 Hours (Table) 09/01/16 Range/Units 09:09 RBC 2.91 L (3.80-5.40) m/uL Hgb 8.6 L (11.4-16.0) gm/dL Hct 27.1 L (34.0-46.0) % RDW 16.3 H (11.5-15.5) % Assessment and Plan (1) Acute GI bleeding Status: Acute (2) Acute blood loss anemia Status: Acute (3) Anemia Status: Acute Plan: Plan The patient's doing well. We will probably end up moving her out of the unit later today. The patient seems stable. No additional recommendations are made. She is a DO NOT RESUSCITATE. Central line was placed yesterday. Overall prognosis is guarded. We'll continue to follow. Labs x-rays medications are all reviewed. Plan dated 08/30/2016 The patient's doing well. The patient can be discharged out of the unit today. She can go to the general medical floor. She is a DO NOT RESUSCITATE. No additional bleeding. No additional blood requirements. No jugular triple lumen site looks good. We'll leave that and she is a hard I suspect. Prognosis is guarded. Plan dated 08/31/2016 The patient's doing well. Likely discharge soon. May go home on May go to rehab. The patient central line will stay in until discharged. No additional bleeding. She looks more awake and alert. Does suffer from severe dementia. Spoke to the and another family member today. Plan dated 09/01/2016 The patient is doing reasonably well. She is DO NOT RESUSCITATE. No additional GI bleeding. No additional units of blood have been needed. For the pulmonary standpoint she is very stable. We've been talking to the family including her . No additional recommendations are made. We'll continue to follow. Medications labs x-rays, are all reviewed. Time with Patient: Less than 30
[2016-09-01] MEDS: SODIUM CHLORIDE 0.9% 1,000 ML IV SCH ×2 (13:37→23:57)
[2016-09-01] MEDS: traZODone HCL 50 MG TAB PO SCH (21:17)
[2016-09-01] MEDS: QUEtiapine 25 MG TAB PO SCH (21:17)
--- NOTE | 2016-09-01 21:47 | PN ---
DATE OF SERVICE: 09/01/2016 PRESENTING COMPLAINT: GI bleed. INTERVAL HISTORY: This patient presented with hematemesis, found to have duodenal ulcer. Still had more in the stool yesterday. Denies any pain. Pleasantly confused. PLAN: Go in for EGD tomorrow. REVIEW OF SYSTEMS: Not attempted. Current medications include PPIs. On examination, temperature 97, pulse 76, respirations 18, blood pressure 120/83, pulse ox 97% on room air. GENERAL APPEARANCE: Lying in bed, awake, comfortable, talking. EYES: Pupils equal. Conjunctivae pale. NECK: JVD not raised. Mass not palpable. RESPIRATORY: Effort normal. LUNGS: Decreased breath sounds. CARDIOVASCULAR: First and second sounds normal. No edema. ABDOMEN: Soft, nontender. Liver and spleen not palpable. PSYCHIATRY: Awake, answering simple questions. INVESTIGATIONS: White count 8.6. ASSESSMENT: 1. Acute severe blood loss anemia, secondary to upper GI bleed, recurrent, with recent EGD showed bleeding duodenal bulb ulcer. 2. Alzheimer dementia, late onset type, advanced. 3. Coronary artery disease. 4. Primary osteoarthritis multiple joints, bilateral. 5. Depression, not otherwise specified. PLAN: Continue with current medications and treatment plan. Await EGD tomorrow.
[2016-09-01] MEDS: HYDROcodone/APAP 5-325MG 1 EACH TAB PO PRN (23:50)
[2016-09-02] MEDS: CHOLECALCIFEROL 1,000 UNIT TAB PO SCH (08:51)
[2016-09-02] MEDS: PANTOPRAZOLE 40 MG/10 ML VIAL IV SCH (08:51)
[2016-09-02] MEDS: LISINOPRIL 20 MG TAB PO SCH (08:51)
[2016-09-02] MEDS: amLODIPine 2.5 MG TAB PO SCH (08:52)
[2016-09-02] MEDS: CARVEDILOL 3.125 MG TAB PO SCH (08:52)
[2016-09-02] MEDS: LACTULOSE 20 GM/30 ML CUP PO SCH (08:52)
[2016-09-02] MEDS: CITALOPRAM HYDROBROMIDE 20 MG TAB PO SCH (08:52)
[2016-09-02] MEDS: SUCRALFATE 1 GM TAB PO SCH ×2 (08:52→17:53)
[2016-09-02] MEDS: ALPRAZolam 0.25 MG TAB PO SCH (08:54)
[2016-09-02] MEDS: SODIUM CHLORIDE 0.9% 1,000 ML IV SCH ×2 (11:11→20:59)
[2016-09-02] MEDS: HYDROcodone/APAP 5-325MG 1 EACH TAB PO PRN (17:55)
[2016-09-02] MEDS: QUEtiapine 25 MG TAB PO SCH (20:58)
[2016-09-02] MEDS: traZODone HCL 50 MG TAB PO SCH (20:58)
--- NOTE | 2016-09-03 07:43 | PN ---
DATE OF SERVICE: 09/02/2016 PRESENTING COMPLAINT: Gastrointestinal bleed. INTERVAL HISTORY: This is a patient presented ( ) found to have a duodenal ulcer. Dr. Valente saw the patient today, decided to hold off on the EGD. The patient had a dark stool today. Patient otherwise appears comfortable. Review of systems done for constitutional, cardiovascular, GI, pulmonary. Current medications are reviewed. On examination, temperature 97.5, pulse 75, respiratory rate 16, blood pressure 134/81, pulse ox 95% on room air. GENERAL APPEARANCE: Lying in bed, comfortable. EYES: Pupils equal. Conjunctivae pale. NECK: JVD not raised. Mass not palpable. Respiratory effort normal. Lungs decreased breath sounds. CARDIOVASCULAR: First and second sounds normal. No edema. ABDOMEN: Soft, nontender. Liver and spleen not palpable. PSYCHIATRY: Awake, answering simple questions. INVESTIGATIONS: Hemoglobin 8.6. ASSESSMENT: 1. Acute severe blood loss anemia secondary to upper gastrointestinal bleed, recurrent, EGD showing duodenal ulcer bleed. 2. Alzheimer's dementia, late onset type advanced. 3. Coronary artery disease. 4. Primary osteoarthritis in multiple joints, bilateral. 5. Depression, not otherwise specified. PLAN: Continue current medication and treatment plan. Switch the patient to p.o. Protonix.
[2016-09-03] MEDS: SODIUM CHLORIDE 0.9% 1,000 ML IV SCH ×2 (08:26→18:09)
[2016-09-03] MEDS: LISINOPRIL 20 MG TAB PO SCH (08:30)
[2016-09-03] MEDS: amLODIPine 2.5 MG TAB PO SCH (08:30)
[2016-09-03] MEDS: CARVEDILOL 3.125 MG TAB PO SCH (08:30)
[2016-09-03] MEDS: PANTOPRAZOLE 40 MG TABLET PO SCH ×2 (08:30→18:08)
[2016-09-03] MEDS: LACTULOSE 20 GM/30 ML CUP PO SCH (08:30)
[2016-09-03] MEDS: ALPRAZolam 0.25 MG TAB PO SCH (08:30)
[2016-09-03] MEDS: CITALOPRAM HYDROBROMIDE 20 MG TAB PO SCH (08:30)
[2016-09-03] MEDS: CHOLECALCIFEROL 1,000 UNIT TAB PO SCH (08:31)
[2016-09-03 09:07] LABS: Anisocytosis Slight; CH 28.5; CHCM 30.7; HCT 24.6 % (34.0-46.0); HDW 3.53; HGB 7.7 gm/dL (11.4-16.0); Hypochromasia Marked; MCHC 31.2 g/dL (31.0-37.0); Mean Platelet Volume 7.6; Poikilocytosis Slight; RBC 2.64 m/uL (3.80-5.40); RDW 16.4 % (11.5-15.5); WBC 7.8 k/uL (3.8-10.6)
[2016-09-03 16:23] VITALS: RESP 20
[2016-09-03] MEDS: HYDROcodone/APAP 5-325MG 1 EACH TAB PO PRN (16:35)
[2016-09-03] MEDS: traZODone HCL 50 MG TAB PO SCH (19:55)
[2016-09-03] MEDS: QUEtiapine 25 MG TAB PO SCH (19:55)
[2016-09-04] MEDS: SODIUM CHLORIDE 0.9% 1,000 ML IV SCH (04:37)
[2016-09-04 07:47] VITALS: TEMP 98.1
[2016-09-04] MEDS: ALPRAZolam 0.25 MG TAB PO SCH (07:53)
[2016-09-04] MEDS: CARVEDILOL 3.125 MG TAB PO SCH (07:53)
[2016-09-04] MEDS: LACTULOSE 20 GM/30 ML CUP PO SCH (07:53)
[2016-09-04] MEDS: LISINOPRIL 20 MG TAB PO SCH (07:53)
[2016-09-04] MEDS: amLODIPine 2.5 MG TAB PO SCH (07:54)
[2016-09-04] MEDS: CHOLECALCIFEROL 1,000 UNIT TAB PO SCH (07:54)
[2016-09-04] MEDS: PANTOPRAZOLE 40 MG TABLET PO SCH (07:54)
[2016-09-04] MEDS: CITALOPRAM HYDROBROMIDE 20 MG TAB PO SCH (07:54)
[2016-09-04 09:28] LABS: Anisocytosis Slight; CH 28.2; CHCM 29.9; HCT 27.9 % (34.0-46.0); HDW 3.54; HGB 8.6 gm/dL (11.4-16.0); Hypochromasia Marked; MCHC 30.7 g/dL (31.0-37.0); MCV 94.5 fL (80.0-100.0); Mean Platelet Volume 7.2; Poikilocytosis Slight; RBC 2.95 m/uL (3.80-5.40); RDW 16.2 % (11.5-15.5); WBC 7.4 k/uL (3.8-10.6)
--- NOTE | 2016-09-04 11:08 | PN ---
DATE OF SERVICE: 09/03/2016 Presenting complaint: GI bleed. INTERVAL HISTORY: This patient presented with bleeding, duodenal ulcer, had a low ooze. The patient tolerating a diet, comfortable. At her baseline, patient is walking. Has not really been out of bed. and daughter at the bedside. Review of systems attempted but patient is limited with history. Current medications are reviewed. On examination, temperature 98.3, pulse 73, respirations 20, blood pressure 101/95, pulse ox 95% on room air. GENERAL APPEARANCE: Lying in bed, awake. Conjunctivae pale. NECK: JVD not raised. Mass not palpable. RESPIRATORY: Effort normal. Lungs are clear. CARDIOVASCULAR: First and second sounds normal. No edema. ABDOMEN: Soft, nontender. PSYCH: Awake, answering simple questions. INVESTIGATIONS: Hemoglobin is 7.7. ASSESSMENT: 1. Acute severe blood loss anemia secondary to upper gastrointestinal bleed, recurrent. Esophagogastroduodenoscopy showing duodenal ulcers. 2. Alzheimer's dementia, late onset, type advanced. 3. Coronary artery disease. 4. Primary osteoarthritis of multiple joints, bilateral. 5. Depression specified. PLAN: I spoke to daughter at length. At this point we will see the hemoglobin what it is tomorrow. Options are limited. Advanced care planning: Care was discussed with daughter in detail. She is considered overall healthy, options are limited, given her age, hospice would may not be appropriate given that the patient also has advanced Alzheimer's dementia. She will be probably getting in touch with hospice while the patient returns to her place. In the meantime, asked the nurse to get the patient out of bed. Additional time spent for advanced care planning was about 20 to 25 minutes in addition to the progress note.
[2016-09-04 15:39] VITALS: BP 124/73; PULSE 64
--- NOTE | 2016-09-05 19:04 | DS ---
DATE OF ADMISSION: 08/27/2016 DATE OF DISCHARGE: 09/04/2016 FINAL DIAGNOSIS(ES): 1. Acute severe blood loss anemia secondary to upper gastrointestinal bleed, recurrent coming from duodenal ulcer as confirmed by EGD. 2. Alzheimer's dementia, late onset, type advanced. 3. Coronary artery disease. 4. Primary osteoarthritis multiple joints, bilateral. 5. Depression not otherwise specified. CONSULTATIONS: Dr. Sargent from critical care. Dr. Elli Morton from GI. HOSPITAL COURSE: This patient presented with severe gastrointestinal bleed, found to have duodenal ulcer. It did seem to ooze for some time. Epinephrine was done during the procedure. Patient hemoglobin was stable at the time of discharge, up to 8.6. Patient did receive 4 units of blood. Care was discussed with the daughter. Given the patient's advanced dementia, the patient felt to be appropriate candidate for hospice. On exam, lungs are clear. CARDIOVASCULAR: First and second sounds normal. DISCHARGE MEDICATIONS: 1. Celexa 20 mg a day. 2. Seroquel 25 mg q.h.s. 3. Groom 5 1 tabs t.i.d. p.r.n. 4. Lisinopril 40 mg a day. 5. Coreg 3.125 p.o. daily. 6. Norvasc 2.5 p.o. daily. 7. Xanax 0.25 p.o. daily p.r.n. 8. Protonix 40 mg b.i.d. DISPOSITION: [facility]. Patient is still getting hospices at the [facility] . Follow with Dr. Farias from [facility] in 2 to 3 days. Diet as tolerated. CODE STATUS: DNR. On examination, lungs are clear. CARDIOVASCULAR: First and second sounds are normal.
== END 2016-09-04 16:32 | disposition home health service (06) | DRG 377 ==
LOC: EC 06:08 → 6SEL 08:33 → 6ICU 20:31 → 4MS4W 08-30 10:26
PROVIDERS: ADMIT Hospitalist; ATTEND Hospitalist
PROC: 30233N1 Transfusion of Nonautologous Red Blood Cells into Peripheral Vein, Percutaneous Approach (ICD-10-PCS; principal; 2016-08-27)
PROC: 4A133B1 Monitoring of Arterial Pressure, Peripheral, Percutaneous Approach (ICD-10-PCS; 2016-08-27)
PROC: 4A133J1 Monitoring of Arterial Pulse, Peripheral, Percutaneous Approach (ICD-10-PCS; 2016-08-27)
PROC: 03HY32Z Insertion of Monitoring Device into Upper Artery, Percutaneous Approach (ICD-10-PCS; 2016-08-27)
PROC: 0W3P8ZZ Control Bleeding in Gastrointestinal Tract, Via Natural or Artificial Opening Endoscopic (ICD-10-PCS; 2016-08-28)
DX: K26.4 Chronic or unspecified duodenal ulcer with hemorrhage (principal); G93.41 Metabolic encephalopathy; N17.9 Acute kidney failure, unspecified; D62 Acute posthemorrhagic anemia; G30.9 Alzheimer's disease, unspecified; F02.80 Dementia in other diseases classified elsewhere, unspecified severity, without behavioral disturbance, psychotic disturbance, mood disturbance, and anxiety; D72.829 Elevated white blood cell count, unspecified; F32.9 Major depressive disorder, single episode, unspecified; F41.9 Anxiety disorder, unspecified; I12.9 Hypertensive chronic kidney disease with stage 1 through stage 4 chronic kidney disease, or unspecified chronic kidney disease; I25.10 Atherosclerotic heart disease of native coronary artery without angina pectoris; M15.9 Polyosteoarthritis, unspecified; N18.3 Chronic kidney disease, stage 3 (moderate); T39.395A Adverse effect of other nonsteroidal anti-inflammatory drugs [NSAID], initial encounter; Z66 Do not resuscitate; Z79.899 Other long term (current) drug therapy; Z82.49 Family history of ischemic heart disease and other diseases of the circulatory system; Z88.1 Allergy status to other antibiotic agents; Z88.0 Allergy status to penicillin
CPT/HCPCS: 36415; 36430; 43243; 43255; 80048; 80053; 82140; 82272; 82550; 82553; 83690; 83735; 84100; 84484; 85025; 85027; 85610; 85730; 86850; 86900; 86901; 86920; 96361; 96374; 96375; 99153; 99285